=== PATIENT | male | born 1950 | race Caucasian/White ===

== ENCOUNTER 2023-03-24 05:26 | Inpatient (IN) | payer MEDICARE, SELFPAY ==
[2023-03-24] VITALS (9 sets, daily range): BP systolic 101–158; BP diastolic 43–86; PULSE 60–87; RESP 15–22; TEMP 36.9–38.2; O2SAT 91–98; BMI 29.0; BMI 28.8
--- NOTE | ~2023-03-24 | MR_ITS ---
MRI of the abdomen: Clinical indication: Choledocholithiasis. Technique: Coronal SSFSE ARC, WATER:coronal LAVA-FLEX, Coronal 2D FIESTA FatSat, Axial SSFSE BH ARC, Axial 3D DualEcho BH, Axial SSFSE-IR, Axial DWI b=500, Axial 2D FIESTA FatSat, pre and dynamic postco ntrast Axial LAVA ARC, postcontrast Coronal In and Opposed phase LAVA FLEX. Following intravenous adm inistration of 70 cc MultiHance gadolinium, T1-weighted fat-sat imaging was performed in the axial an d coronal planes. Findings: Gallbladder is markedly distended, sludge and probable small stones. There is gallbladder w all thickening, and probable mild pericholecystic inflammatory change. The common bile duct is mildly dilated to 9 mm. There are several filling defects at the distal common bile duct, compatible with c holedocholithiasis, with largest stone measuring 8 mm.. No evidence of intrahepatic biliary ductal di latation. The pancreatic duct is normal in size. Liver, spleen, pancreas, adrenals, kidneys appear normal. The aorta and the paraaortic regions appear normal. Impression: Choledocholithiasis, as detailed above. Distended gallbladder with wall thickening and mild pericholecystic inflammatory change, consistent w ith acute cholecystitis. Correlate clinically. Gallbladder sludge and probable small stones. Reviewed, dictated and finalized at [facility]. SPECIALIST Impression: Choledocholithiasis, as detailed above. Distended gallbladder with wall thickening and mild pericholecystic inflammator y change, consistent with acute cholecystitis. Correlate clinically. Gallbladder sludge and probable small stones.
--- NOTE | ~2023-03-24 | XR_ITS ---
EXAMINATION: XR ERCP DATE: 03/26/2023 14:25 INDICATION: Choledocholithiasis. TECHNIQUE: 2 spot fluoroscopic images of the right upper quadrant were obtained during endoscopic ret rograde cholangiopancreatography (ERCP). Fluoroscopy exposure time was 92 seconds. COMPARISON: MRCP 03/25/2023 FINDINGS: The endoscope is in the second portion of the duodenum. There is a stone in the common duct . IMPRESSION: 1. Choledocholithiasis. Please refer to the ERCP procedure note for additional details. Reviewed, dictated and finalized at location A. ERY CUTTER
--- NOTE | ~2023-03-24 | CT_ITS ---
EXAMINATION: CT abdomen pelvis w con INDICATION: Abdominal pain TECHNIQUE: Computed tomographic images of the abdomen and pelvis were obtained after the administrati on of 100 cc of Omnipaque 350 intravenous contrast. The dose-length product (DLP) was 783.24 mGy-cm. Automated exposure control and iterative reconstruction technique were employed. COMPARISON: None available FINDINGS: Minimal dependent atelectasis is present in the lung bases. The heart size is normal. Calci fied coronary artery atherosclerosis is noted. The liver, pancreas, and adrenal glands are normal. Pu nctate calcifications in an otherwise normal spleen likely represent healed granulomatous disease. Th ere are stones in the common bile duct which results in mild intrahepatic and extra hepatic biliary d ilatation. There is also resulting distention of the gallbladder with surrounding edematous fat stran ding. The kidneys are unremarkable. There is calcified atherosclerosis of the aorta and many of the o ther arteries. No pathologically enlarged abdominal or pelvic lymph nodes are identified. No free int raperitoneal gas or evidence of bowel obstruction. Colonic diverticulosis is present without evidence of diverticulitis. The appendix is normal. There is moderate lumbar spondylosis. IMPRESSION: 1. Choledocholithiasis with mild intrahepatic and extra hepatic biliary dilatation and secondary chol ecystitis. GI evaluation is recommended. Reviewed, dictated and finalized at location F. CULAR BIOLOGY DIRECTOR IMPRESSION: 1. Choledocholithiasis with mild intrahepatic and extra hepatic biliary dilatat ion and secondary cholecystitis. GI evaluation is recommended.
--- NOTE | 2023-03-24 07:18 | ED.ABDPAIN ---
HPI - Abdominal Pain General Chief Complaint: Abdominal Pain Stated Complaint: abd pain Time Seen by Provider: 03/24/23 07:17 Source: patient and EMS Mode of arrival: EMS History of Present Illness HPI narrative: 73 years old white male came from home by ambulance with severe intermittent diffuse abdominal pain, aching, associated with nausea and frequent vomiting for the last 3 days. Patient lives alone, denies history of abdominal surgery. He denies any fever chills, chest pain or shortness of breath, history of hypertension, hyperlipidemia currently on aspirin and Plavix, he does smoke cigarettes and occasional alcohol intake. Related Data Home Medications Medication Instructions Recorded Confirmed aspirin 81 mg capsule 81 mg PO DAILY 03/24/23 03/24/23 carvedilol 12.5 mg tablet 12.5 mg PO BID 03/24/23 03/24/23 clopidogrel 75 mg tablet (Plavix) 75 mg PO DAILY 03/24/23 03/24/23 ezetimibe 10 mg tablet 10 mg PO DAILY 03/24/23 03/24/23 pantoprazole 40 mg tablet,delayed 40 mg PO QAM 03/24/23 03/24/23 release ramipril 10 mg capsule 10 mg PO DAILY 03/24/23 03/24/23 simvastatin 80 mg tablet 80 mg PO DAILY 03/24/23 03/24/23 Allergies Allergy/AdvReac Type Severity Reaction Status Date / Time No Known Drug Allergies Allergy Verified 03/24/23 11:30 NKA Allergy Unknown Uncoded 08/05/02 14:02 Review of Systems Review of Systems: All systems reviewed & are unremarkable except as noted in HPI and below PMFSH Past Medical History Medical History (Updated 03/24/23 @ 13:53 by Katey Mathews PA-C) Coronary artery disease Diverticulosis Gastroesophageal reflux disease Hyperlipidemia Hypertension Surgical History Surgical History (Updated 03/24/23 @ 13:54 by Katey Mathews PA-C) History of cardiac catheterization History of coronary artery stent placement (06/2006) Family History Family History (Updated 03/24/23 @ 13:55 by Katey Mathews PA-C) Father Complication of surgery Mother Hypertension Social History Social History (Updated 03/24/23 @ 13:55 by Katey Mathews PA-C) Social History: Surrogate medical decision maker: Ozzie Miller, son. Code status: Full code. Smoking packs per day: 1 Smoking cigarettes per day: 20.0 Smoking status: Current every day smoker Tobacco type: cigarettes Alcohol intake: current Drinks per week: 2 Substance use: never Do You Feel Safe in your Home?: Yes Lack of Transportation: No Lack of Food: Never True Current Housing: I Have Housing Concerned About Future Housing: No Difficulty Paying Gas/Electric Bills: No Difficulty Paying for Meds: No Currently Unemployed: No Education: Bachelor's Degree Difficulty w/ Childcare or Family Care: No Spiritual care concerns: No Exam Narrative: General appearance: Well-developed, well-nourished Skin: Normal color Head: Normocephalic, nontraumatic Eyes: Clear conjunctiva ENT: Oropharynx normal, ears normal, nose normal Neck: Supple, nontender Chest and respiratory: Airway patent, no respiratory distress, no accessory muscle use Heart: Regular rate/rhythm Abdomen: Soft, severe diffuse tenderness, positive guarding, no rebound no organomegaly, quiet bowel sounds Vascular: Normal peripheral pulses, normal capillary refill. Musculoskeletal: Normal range of motion, nontender back Neurologic: Alert and oriented ?3, UTILIZATION ENGINEER is normal as tested, no gross motor deficit Course Consultations Consultation #1: DR CRUZ Date: 03/24/23 Consultation #2: DR SOARES Vital Signs Vital signs: Vital Signs Temperature 37.0 C 03/24/23 05:30 Pulse Rate 60 03/24/23 05:30 Re
--- NOTE | 2023-03-24 07:25 | PC.NURSE ---
Report to LAYLA Roche.
[2023-03-24] MEDS: HYDROmorphone HCL INJ (*CRX) 1 MG/ML SYR 0.5 MG IV PUSH ×6 (07:41→21:02)
[2023-03-24] MEDS: SODIUM CHLORIDE 0.9% IV 1,000 ML 999 ML IV CONT (07:43)
[2023-03-24] MEDS: ONDANSETRON INJ 4 MG/2 ML VIAL IV PUSH (07:43)
[2023-03-24 08:01] LABS: Basophils Percent Auto 0.1 % (0.2-1.2); Hematocrit 41.4 % (42.0-52.0); Hemoglobin 14.4 g/dL (14.0-18.0); Immature Granulocyte Absolute 0.17 K/mm3 (0.00-0.031); Immature Granulocyte Percent A 0.8 % (0-0.5); Lymphocytes Absolute Auto 0.87 K/mm3 (0.9-3.2); Mean Corpuscular HGB Conc 34.8 g/dl (32-36); Mean Platelet Volume 9.8 fl (7.4-10.4); Monocytes Absolute Auto 2.7 K/mm3 (0.1-0.6); Monocytes Percent Auto 12.1 % (2.6-8.5); Neutrophils Absolute Auto 18.1 K/mm3 (1.3-6.7); Platelet Count Result 206 k/mm3 (150-375); Red Cell Distribution Width 12.9 % (11.5-14.5); White Blood Count 21.9 K/mm3 (4.5-10.0)
[2023-03-24 08:11] LABS: Alanine Aminotransferase 20 U/L (6-50); Albumin Level 3.5 g/dL (3.5-5.1); Alkaline Phosphatase 67 U/L (38-126); Anion Gap 6 mmol/L (8-16); Aspartate Amino Transferase 30 U/L (17-59); Bilirubin,Total 2.1 mg/dL (0.2-1.3); Blood Urea Nitrogen 20 mg/dL (9-20); Calcium 8.9 mg/dL (8.4-10.2); Carbon Dioxide 23 mmol/L (22-30); Chloride 101 mmol/L (98-107); Estimated CRCL calculation 93 ml/min; Estimated Glomerular Filt Rate > 60; Glucose 130 mg/dL (65-110); Lipase 16 U/L (23-300); Potassium 3.8 mmol/L (3.4-5.0); Sodium 130 mmol/L (137-145)
[2023-03-24 08:49] LABS: Add Urine Microscopic? YES; Appearance Urine Clear (Clear); Bacteria Urine None Seen /hpf; Bilirubin Urine 1+ (Negative); Blood Urine Negative (Negative); Color Urine Dark Yellow (Yellow); Glucose Urine UA Negative (Negative); Ketones Urine 1+ mg/dL (Negative); Leukocyte Esterase Ur Trace LEU/UL (Negative); Need Manual Microscopic Reviewed; Nitrate Urine Negative (Negative); Non Pathogenic Casts 0-2; Protein Urine 1+ mg/dL (Negative); Specific Grav Ur 1.026 (1.001-1.035); Squamous Epithelial Cell Urine None seen /hpf (Few); WBC Urine 0-5 /hpf
--- NOTE | 2023-03-24 08:59 | PC.NURSE ---
Pt to CT scan via stretcher at this time.
[2023-03-24] MEDS: PIPERACILLN/TAZ 3.375GM/NS50ML 3.375 GM/50 ML BAG IVPB ×2 (10:21→16:52)
[2023-03-24] MEDS: SODIUM CHLORIDE 0.9% IV 1,000 ML 150 ML IV CONT (11:08)
--- NOTE | 2023-03-24 11:29 | WPDGICN ---
Assessment and Plan Assessment and plan (1) Choledocholithiasis: Code(s): K80.50 - Calculus of bile duct without cholangitis or cholecystitis without obstruction Status: Acute Assessment and Plan: CT scan reveals: IMPRESSION: 1. Choledocholithiasis with mild intrahepatic and extra hepatic biliary dilatation and secondary cholecystitis. GI evaluation is recommended. (2) Acute cholecystitis: Code(s): K81.0 - Acute cholecystitis Status: Acute Assessment and Plan: surgery has been contacted. (3) Dehydration: Code(s): E86.0 - Dehydration Status: Acute Assessment and Plan: complains of being very thirsty in his mouth is dry, however BUN is only 20. Plan I told that we will follow his liver enzymes. We will likely obtain MRCP. I told that he may need ERCP which will be done on Sunday. GI Consult Note Consult date/time: 03/24/23 11:29 HPI: Te Miller is a 73 year old male who presented to the emergency room this morning with complaints of having upper abdominal pain and nausea for the past 3 days. This began with nausea and vomiting on . The pain was rather intense in the epigastric area and has not subsided. He stop eating more last but continues to feel nauseated. He also did have diaphoresis and chills initially. He has had no change in bowel habits. His urine has looked darker. He has not noticed any discoloration in his eyes. he is known to have gallstones per previous imaging studies. Now on CT scan he has coli no cholelithiasis with mild intra and extrahepatic dilatation. Surprisingly, his liver function studies are normal as is his lipase. However his white blood count is over 21,000. Review of Systems Review of Systems: All systems reviewed & are unremarkable except as noted in HPI and below Meds Home Medications and Allergies Allergies Allergy/AdvReac Type Severity Reaction Status Date / Time No Known Drug Allergies Allergy Verified 03/24/23 11:30 NKA Allergy Unknown Uncoded 08/05/02 14:02 Vital Signs Vital Signs - 24 hr 03/24/23 05:30 03/24/23 07:06 03/24/23 07:01 Temperature 37.0 C Pulse Rate 60 68 71 Respiratory Rate 22 H 20 Blood Pressure 101/43 L 146/86 H Pulse Oximetry 98 96 Oxygen Delivery Room Air 03/24/23 09:50 03/24/23 11:04 Temperature Pulse Rate 76 71 Respiratory Rate 20 15 Blood Pressure 158/77 H 140/80 Pulse Oximetry 94 94 Oxygen Delivery Exam Const: General: cooperative and healthy appearing Orientation/consciousness: patient oriented x3 HENMT: Head: normal to inspection Ears: hearing grossly normal bilaterally Mouth: Yes Normal oral and palatal mucosa present Other: as a faint hint of jaundice need his eyes. Eyes: General: appearance normal, both eyes and all related structures Neck: Neck: normal visual inspection Chest: Chest palpation & inspection: normal inspection of the chest Resp: Effort & Inspection: normal respiratory effort Auscultation: clear to auscultation bilaterally Cardio: Rate: regular rate Rhythm: regular rhythm GI: Inspection: normal to inspection GI Palp: Yes Tenderness to palpation present (GI) ( Very tender epigastric area and upper quadrants) and Yes Guarding due to palpation present (GI) Auscultation: normal bowel sounds Skin: General skin exam: normal color and no jaundice Neuro: General: patient oriented x3 Speech: normal speech Results Labs 03/24/23 07:53 03/24/23 07:53 Labs: Short CBC 03/24/23 Range/Units 07:53 WBC 21.9 H (4.5-10.0) K/mm3 Hgb 14.4 (14.0-18.0) g/dL Hct 41.4 L (42.0-52.0) % Plt Count 206 (150-375) k/mm3 BMP 03/24/23 07:53 Sodium 130 L Potassium 3.8 Chloride 101 Carbon Dioxide 23 BUN 20 Creatinine 0.60 L Glucose 130 H Calcium 8.9 Liver Function 03/24/23 Range/Units 07:53 Total Bilirubin 2.1 H (0.2-1.3) mg/dL AST 30
--- NOTE | 2023-03-24 11:57 | P.CONGI_ITS ---
Assessment and Plan Assessment and plan (1) Choledocholithiasis: Code(s): K80.50 - Calculus of bile duct without cholangitis or cholecystitis without obstruction Status: Acute (2) Transaminitis: Code(s): R74.01 - Elevation of levels of liver transaminase levels Status: Acute Assessment and Plan: AST and ALT are 288651 respectively. Alkaline phosphatase is up to 438 and as mentioned above bilirubin is also elevated. (3) Pancreatitis: Code(s): K85.90 - Acute pancreatitis without necrosis or infection, unspecified Status: Acute Assessment and Plan: lipase 04/03/2076 (4) RSV (acute bronchiolitis due to respiratory syncytial virus): Code(s): J21.0 - Acute bronchiolitis due to respiratory syncytial virus Status: Acute GI Consult Note Consult date/time: 03/24/23 11:57 HPI: Te Miller is a 73 year old male Meds Home Medications and Allergies Allergies Allergy/AdvReac Type Severity Reaction Status Date / Time No Known Drug Allergies Allergy Verified 03/24/23 11:30 NKA Allergy Unknown Uncoded 08/05/02 14:02 Vital Signs Vital Signs - 24 hr 03/24/23 05:30 03/24/23 07:06 03/24/23 07:01 Temperature 37.0 C Pulse Rate 60 68 71 Respiratory Rate 22 H 20 Blood Pressure 101/43 L 146/86 H Pulse Oximetry 98 96 Oxygen Delivery Room Air 03/24/23 09:50 03/24/23 11:04 Temperature Pulse Rate 76 71 Respiratory Rate 20 15 Blood Pressure 158/77 H 140/80 Pulse Oximetry 94 94 Oxygen Delivery Results Labs 03/24/23 07:53 03/24/23 07:53 Labs: Short CBC 03/24/23 Range/Units 07:53 WBC 21.9 H (4.5-10.0) K/mm3 Hgb 14.4 (14.0-18.0) g/dL Hct 41.4 L (42.0-52.0) % Plt Count 206 (150-375) k/mm3 BMP 03/24/23 07:53 Sodium 130 L Potassium 3.8 Chloride 101 Carbon Dioxide 23 BUN 20 Creatinine 0.60 L Glucose 130 H Calcium 8.9 Liver Function 03/24/23 Range/Units 07:53 Total Bilirubin 2.1 H (0.2-1.3) mg/dL AST 30 (17-59) U/L ALT 20 (6-50) U/L Alkaline Phosphatase 67 (38-126) U/L Albumin 3.5 (3.5-5.1) g/dL Urine 03/24/23 Range/Units 08:27 Urine Color Dark yellow (Yellow) Urine Appearance Clear (Clear) Urine pH 6.0 (5.0-9.0) Ur Specific [place] 1.026 (1.001-1.035) Urine Protein 1+ H (Negative) mg/dL Urine Glucose (UA) Negative (Negative) mg/dL
--- NOTE | 2023-03-24 13:30 | PM.IMHP ---
H&P: HPI History of Present Illness Date/Time: 03/24/23 13:30 Chief Complaint: Abdominal pain. Narrative: This is a pleasant 73-year-old male smoker with history of gastroesophageal reflux disease, diverticulosis, coronary artery disease, hypertension, dyslipidemia, and gastroesophageal reflux disease who presented to the emergency department via EMS from for evaluation of abdominal pain. The patient provides the following history. Early on in the week he developed congestion in his chest and sinuses and he reports having a dry, hacking cough. About 3 days ago he developed some discomfort throughout the upper abdomen which he initially attributed to the cough however it has become increasingly uncomfortable. The pain is intermittent and he describes it as aching in nature. It seems to radiate across his entire upper abdomen and is worse with food; he reports that he feels full quickly with minimal oral intake. Associated symptoms include nausea and several episodes of nonbloody and nonbilious emesis. He reports sweats and chills but was unaware of any fever he may have had. He denies headache, neck ache, sore throat, chest pain, pleuritic pain, palpitations, shortness of breath, hematemesis, melena, hematochezia, diarrhea, and dysuria. In the ED: He was afebrile on arrival with stable blood pressures but is now running a low-grade temperature of 100.8?. Labs were significant for a WBC count of 21.9, sodium 130, creatinine 0.60, total bilirubin 2.1, AST 30, ALT 20, alkaline phosphatase 67, lipase 16. Abdominal CT showed choledocholithiasis is mild intrahepatic and extrahepatic biliary dilatation secondary cholecystitis. He was given 2 L normal saline fluid bolus and 3.375 g of Zosyn and he is being admitted in this setting for IV antibiotics and GI and surgery consultations. Review of Systems Review of Systems: Twelve systems were reviewed and are negative except for as per HPI. [facility] Past Medical History Medical History Coronary artery disease Diverticulosis Gastroesophageal reflux disease Hyperlipidemia Hypertension Surgical History Surgical History History of cardiac catheterization History of coronary artery stent placement (06/2006) Family History Family History Father Complication of surgery Mother Hypertension Social History Social History Social History: Surrogate medical decision maker: Ozzie Miller, son. Code status: Full code. Smoking packs per day: 1 Smoking cigarettes per day: 20.0 Smoking status: Current every day smoker Tobacco type: cigarettes Alcohol intake: current Drinks per week: 2 Substance use: never Do You Feel Safe in your Home?: Yes Lack of Transportation: No Lack of Food: Never True Current Housing: I Have Housing Concerned About Future Housing: No Difficulty Paying Gas/Electric Bills: No Difficulty Paying for Meds: No Currently Unemployed: No Education: Bachelor's Degree Difficulty w/ Childcare or Family Care: No Spiritual care concerns: No Meds Home Medications and Allergies Home Medications Medication Instructions Recorded Confirmed Type aspirin 81 mg capsule 81 mg PO DAILY 03/24/23 03/24/23 History carvedilol 12.5 mg tablet 12.5 mg PO BID 03/24/23 03/24/23 History clopidogrel 75 mg tablet (Plavix) 75 mg PO DAILY 03/24/23 03/24/23 History ezetimibe 10 mg tablet 10 mg PO DAILY 03/24/23 03/24/23 History pantoprazole 40 mg tablet,delayed 40 mg PO QAM 03/24/23 03/24/23 History release ramipril 10 mg capsule 10 mg PO DAILY 03/24/23 03/24/23 History simvastatin 80 mg tablet 80 mg PO DAILY 03/24/23 03/24/23 History Allergies Allergy/AdvReac Type Severity Reaction Status Date / Time No K
[2023-03-24] MEDS: carvediloL 12.5 MG TABLET PO (16:51)
[2023-03-24] MEDS: SODIUM CHLORIDE 0.9% IV 1,000 ML 100 ML IV CONT (21:01)
[2023-03-24] MEDS: guaiFENesin/DEXTROMETHORPHAN 10 ML UDC PO (22:52)
[2023-03-24] MEDS: OXYMETAZOLINE HCL 0.05% NAS 15 ML BTL (*BKC) 1 SPRAY NASAL (22:58)
[2023-03-25] MEDS: PIPERACILLN/TAZ 3.375GM/NS50ML 3.375 GM/50 ML BAG IVPB ×4 (00:25→17:22)
[2023-03-25] MEDS: HYDROmorphone HCL INJ (*CRX) 1 MG/ML SYR 0.5 MG IV PUSH ×6 (00:28→20:53)
[2023-03-25 05:28] LABS: Influenza A QL RT-PCR Negative (Negative); Influenza B QL RT-PCR Negative (Negative); RSV RNA, RT-PCR Negative (Negative); SARS-CoV-2 RNA PCR Negative (Negative)
[2023-03-25 06:00] VITALS: BP 111/57; PULSE 71; RESP 16; TEMP 37.3; O2SAT 92
[2023-03-25 07:20] LABS: Hematocrit 38.7 % (42.0-52.0); Hemoglobin 12.9 g/dL (14.0-18.0); Mean Corpuscular HGB Conc 33.3 g/dl (32-36); Mean Corpuscular Hemoglobin 31.2 pg (26-34); Mean Corpuscular Volume 93.5 fl (80-100); Mean Platelet Volume 10.9 fl (7.4-10.4); Platelet Count Result 178 k/mm3 (150-375); Red Blood Count 4.14 M/mm3 (4.6-6.20); Red Cell Distribution Width 13.1 % (11.5-14.5); White Blood Count 20.6 K/mm3 (4.5-10.0)
[2023-03-25 07:30] LABS: Alanine Aminotransferase 20 U/L (6-50); Alkaline Phosphatase 80 U/L (38-126); Anion Gap 4 mmol/L (8-16); Aspartate Amino Transferase 23 U/L (17-59); Bilirubin,Total 2.2 mg/dL (0.2-1.3); Blood Urea Nitrogen 15 mg/dL (9-20); Calcium 8.6 mg/dL (8.4-10.2); Carbon Dioxide 25 mmol/L (22-30); Chloride 101 mmol/L (98-107); Estimated CRCL calculation 81 ml/min; Estimated Glomerular Filt Rate > 60; Glucose 97 mg/dL (65-110); Lipase 15 U/L (23-300); Magnesium 1.9 mg/dL (1.6-2.3); Potassium 3.8 mmol/L (3.4-5.0); Sodium 130 mmol/L (137-145)
[2023-03-25] MEDS: SODIUM CHLORIDE 0.9% IV 1,000 ML 100 ML IV CONT (08:40)
[2023-03-25 08:43] VITALS: PULSE 83
[2023-03-25] MEDS: carvediloL 12.5 MG TABLET PO ×2 (08:43→17:23)
[2023-03-25] MEDS: CLOPIDOGREL BISULFATE 75 MG TABLET PO (08:43)
[2023-03-25] MEDS: SIMVASTATIN 20 MG TABLET 80 MG PO (08:47)
[2023-03-25] MEDS: EZETIMIBE 10 MG TABLET PO (08:47)
[2023-03-25] MEDS: PANTOPRAZOLE 40 MG TABLET PO (08:47)
[2023-03-25] MEDS: ramipriL 5 MG CAPSULE 10 MG PO (08:51)
--- NOTE | 2023-03-25 11:45 | WPDGIPROGNO ---
Progress Note: A&P Assessment and Plan (1) Choledocholithiasis: Code(s): K80.50 - Calculus of bile duct without cholangitis or cholecystitis without obstruction Status: Acute Assessment and Plan: bilirubin has come down to 2.0. We will get MRCP today (2) Transaminitis: Code(s): R74.01 - Elevation of levels of liver transaminase levels Status: Acute Assessment and Plan: Transaminases remain normal (3) Pancreatitis: Code(s): K85.90 - Acute pancreatitis without necrosis or infection, unspecified Status: Acute Assessment and Plan: clinically he seems to have pancreatitis with epigastric tenderness and some guarding although lipase remains normal. (4) Inguinal hernia: Code(s): K40.90 - Unilateral inguinal hernia, without obstruction or gangrene, not specified as recurrent Status: Acute Assessment and Plan: Surgical consult has been placed because of gallstones. He will also check on left inguinal area tenderness (5) Leukocytosis: Code(s): D72.829 - Elevated white blood cell count, unspecified Status: Acute Assessment and Plan: white blood count remains elevated. He is on piperacillin. Subjective Date/time seen: 03/25/23 11:45 he states that the pain has not subsided. He is press tender smoke signal throughout his upper abdomen. Not interested in food. He has had no vomiting. His pain is continuous but he states that the staff is doing a good job giving him medication when he asks for it. Exam Const: General: cooperative and healthy appearing Orientation/consciousness: patient oriented x3 HENMT: Head: normal to inspection Ears: hearing grossly normal bilaterally Mouth: Yes Normal oral and palatal mucosa present Other: as a faint hint of jaundice need his eyes. Eyes: General: appearance normal, both eyes and all related structures Neck: Neck: normal visual inspection Chest: Chest palpation & inspection: normal inspection of the chest Resp: Effort & Inspection: normal respiratory effort Auscultation: clear to auscultation bilaterally Cardio: Rate: regular rate Rhythm: regular rhythm GI: Inspection: normal to inspection GI Palp: Yes abdominal tenderness ( More so than yesterday), Yes Guarding due to palpation present (GI) ( epigastric and upper abdomen) and Yes Hernia present ( left inguinal swelling probable hernia) Auscultation: normal bowel sounds Skin: General skin exam: normal color and no jaundice Neuro: General: patient oriented x3 Speech: normal speech Objective Data Vital Signs Vital Signs: Vital Signs - 24 hr 03/24/23 12:09 03/24/23 12:25 03/24/23 14:00 Temperature 37.2 C 38.2 C H Pulse Rate 87 84 Respiratory Rate 22 H 16 Blood Pressure 129/56 L 123/62 Pulse Oximetry 93 91 Oxygen Delivery Room Air 03/24/23 16:51 03/24/23 21:34 03/25/23 06:00 Temperature 36.9 C 37.3 C Pulse Rate 77 74 71 Respiratory Rate 20 16 Blood Pressure 117/64 111/57 L Pulse Oximetry 93 92 Oxygen Delivery 03/25/23 08:43 03/25/23 08:40 Temperature Pulse Rate 83 Respiratory Rate Blood Pressure Pulse Oximetry Oxygen Delivery Room Air Intake/Output Intake/Output: Intake & Output 03/22/23 03/23/23 03/24/23 03/25/23 23:59 23:59 23:59 23:59 Intake Total 2100 1468 Output Total 550 850 Balance 1550 618 Meds/Results Medications: Active Medications Generic Name Dose Route Start Last Admin Trade Name Freq PRN Reason Stop Dose Admin Aspirin 81 mg 03/25/23 09:00 03/25/23 08:53 Aspirin 81 Mg Chewable Tablet PO Not Given DAILY [facility] Carvedilol 12.5 mg 03/24/23 17:00 03/25/23 08:43 Carvedilol 12.5 Mg Tablet PO 12.5 mg BID [facility] Administration Clopidogrel Bisulfate 75 mg 03/25/23 09:00 03/25/23 08:43 Clopidogrel Bisulfate 75 Mg Tablet PO 75 mg DAILY [facility] Administration Ezetimibe 10 mg 03/25/23 09:00 03/25/23 08:47 Ezetimib
--- NOTE | 2023-03-25 12:13 | PM.CNGS ---
Assessment and Plan Assessment and plan (1) Acute cholecystitis: Code(s): K81.0 - Acute cholecystitis Status: Acute Assessment and Plan: Patient has evidence of acute cholecystitis and probable choledocholithiasis on CT. I reviewed the CT and discussed the findings with the patient. MRCP has been ordered and will await these results and further GI recommendations. Patient is on aspirin and Plavix and this was continued by the hospitalist on admission. He will not be a candidate for surgery during this admission due to this and his increased risks of major bleeding. Once common bile duct has been further assessed and decision made on ERCP, I would likely recommend a percutaneous cholecystostomy tube placement by Interventional Radiology. This will gain control of the cholecystitis and then patient can have surgery once the cholecystitis has resolved and he can safely stop his aspirin and Plavix for 5-7 days preop. (2) Choledocholithiasis: Code(s): K80.50 - Calculus of bile duct without cholangitis or cholecystitis without obstruction Status: Acute (3) Pancreatitis: Code(s): K85.90 - Acute pancreatitis without necrosis or infection, unspecified Status: Acute (4) Coronary artery disease: Code(s): I25.10 - Atherosclerotic heart disease of [place] coronary artery without angina pectoris Status: Acute (5) Inguinal hernia: Code(s): K40.90 - Unilateral inguinal hernia, without obstruction or gangrene, not specified as recurrent Status: Acute Assessment and Plan: Small reducible left inguinal hernia is identified. Patient nontender now. This can be observed for now. 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 This will have to be stopped for 5-7 days before any surgical procedure unless it is absolutely emergent. (7) Tobacco use: Code(s): Z72.0 - Tobacco use Status: Acute History of Present Illness Consult details Consult date: 03/25/23 Reason for consult: other (Cholecystitis, choledocholithiasis) Requesting physician: Chanelle Rosales MD Narrative: This is a 73-year-old man who presented to the emergency department with right upper quadrant pain, nausea, and vomiting. He was found to have a significantly elevated white blood count and elevated bilirubin. CT showed evidence of acute cholecystitis and choledocholithiasis. His pain started 3 days ago and he does recall eating a turkey burger and fries prior to this. He has never had symptoms like this before. Pain has been constant since it presented. Patient does have a history of coronary artery disease and has been on aspirin and Plavix assisted. This has not been held since he was admitted. He did receive the medications this morning. Review of Systems Review of Systems: All systems reviewed & are unremarkable except as noted in HPI and below Eyes: Eyes: Denies change in vision ENT: Denies hearing loss, Denies neck pain and Denies sore throat Cardiovascular: Cardiovascular: Denies chest pain and Denies dyspnea Respiratory: Respiratory: Denies cough, Denies dyspnea and Denies wheezing Gastrointestinal: Gastrointestinal: Reports as per HPI Genitourinary: Genitourinary: Denies hematuria and Denies dysuria Musculoskeletal: Musculoskeletal: Denies arthralgias, Denies joint swelling and Denies neck pain Allergic/Immunologic: Allergic/Immunologic: Denies wheezing [facility] Past Medical History Medical History Coronary artery disease Diverticulosis Gastroesophageal reflux disease Hyperlipidemia Hypertension Surgical History Surgical History History of cardiac catheterization History
--- NOTE | 2023-03-25 14:06 | P.PNIM_ITS ---
Progress Note: A&P Assessment and Plan (1) Cholecystitis: Code(s): K81.9 - Cholecystitis, unspecified Status: Acute Assessment and Plan: * Presented with upper abd pain- continues * CT Abd/Pelvis- choledocholithiasis and secondary cholecystitis * on Zosyn * GI consulted- Dr Mukherjee- MRCP today * General surgery consulted- No surgery this admit- recommend percutaneous cholecystostomy tube placement by Interventional Radiology (2) Choledocholithiasis: Code(s): K80.50 - Calculus of bile duct without cholangitis or cholecystitis without obstruction Status: Acute Assessment and Plan: * See #1 (3) Dehydration: Code(s): E86.0 - Dehydration Status: Acute Assessment and Plan: * ED labs indicative of dehydration- patient admitted to poor intake * 2L NS given in ED * NS at 100 currently * Labs show improvement- Continue to follow (4) Coronary artery disease: Code(s): I25.10 - Atherosclerotic heart disease of [place] coronary artery without angina pectoris Status: Acute Assessment and Plan: * Hx of CAD- with cardiac stents * Denies chest pain * Continue beta-french, statin, * Currently on Asprin and Plavix * (5) Hypertension: Code(s): I10 - Essential (primary) hypertension Status: Acute Assessment and Plan: * Ramipril and carvedilol were continued by admitting provider * monitor closely * BP today 111/57, HR 71 (6) Gastroesophageal reflux disease: Code(s): K21.9 - Gastro-esophageal reflux disease without esophagitis Status: Acute Assessment and Plan: * Was having nausea and vomiting upon admission * Continue Prontix * Monitor symptoms (7) Leukocytosis: Code(s): D72.829 - Elevated white blood cell count, unspecified Status: Acute Assessment and Plan: * WBC trending down today 20.6 (21.9 on admission) * On Zosyn * Continue to monitor trends (8) Inguinal hernia: Code(s): K40.90 - Unilateral inguinal hernia, without obstruction or gangrene, not sp ecified as recurrent Status: Acute Assessment and Plan: * Expressed tender area to left groin * Potential for hernia- as patient stated he experienced extreme coughing spells * CT Abd/Pelvis VS General surgery assessment * General surgery note patient has reducible left inguinal hernia * Monitor at this time (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 (10) Tobacco use: Code(s): Z72.0 - Tobacco use Status: Acute Assessment and Plan: * Patient is a current smoker. * Tobacco cessation education offered and declined at this time. * Continue to educate Time Spent With Patient Time with patient: 15 - 25 minutes Subjective Date/time seen: 03/25/23 0920 Interval history: 73 year old male patient examined today at bedside in interval assessment with hospital admission for cholecystitis and choledocholithiasis. He expressed that is pain remains in his upper abdomen area and describes pain as a sense of fullness. He stated that his pain increases if he has to cough. He stated cough is from congestion. He is a current smoker. He stated that current pain medication regimen works well for him, it al
--- NOTE | 2023-03-25 14:06 | PM.IMPN ---
Progress Note: A&P Assessment and Plan (1) Cholecystitis: Code(s): K81.9 - Cholecystitis, unspecified Status: Acute Assessment and Plan: Presented with upper abd pain- continues CT Abd/Pelvis- choledocholithiasis and secondary cholecystitis on Zosyn GI consulted- Dr Mukherjee- MRCP today General surgery consulted- No surgery this admit- recommend percutaneous cholecystostomy tube placement by Interventional Radiology (2) Choledocholithiasis: Code(s): K80.50 - Calculus of bile duct without cholangitis or cholecystitis without obstruction Status: Acute Assessment and Plan: See #1 (3) Dehydration: Code(s): E86.0 - Dehydration Status: Acute Assessment and Plan: ED labs indicative of dehydration- patient admitted to poor intake 2L NS given in ED NS at 100 currently Labs show improvement- Continue to follow (4) Coronary artery disease: Code(s): I25.10 - Atherosclerotic heart disease of [place] coronary artery without angina pectoris Status: Acute Assessment and Plan: Hx of CAD- with cardiac stents Denies chest pain Continue beta-french, statin, Currently on Asprin and Plavix (5) Hypertension: Code(s): I10 - Essential (primary) hypertension Status: Acute Assessment and Plan: Ramipril and carvedilol were continued by admitting provider monitor closely BP today 111/57, HR 71 (6) Gastroesophageal reflux disease: Code(s): K21.9 - Gastro-esophageal reflux disease without esophagitis Status: Acute Assessment and Plan: Was having nausea and vomiting upon admission Continue Prontix Monitor symptoms (7) Leukocytosis: Code(s): D72.829 - Elevated white blood cell count, unspecified Status: Acute Assessment and Plan: WBC trending down today 20.6 (21.9 on admission) On Zosyn Continue to monitor trends (8) Inguinal hernia: Code(s): K40.90 - Unilateral inguinal hernia, without obstruction or gangrene, not specified as recurrent Status: Acute Assessment and Plan: Expressed tender area to left groin Potential for hernia- as patient stated he experienced extreme coughing spells CT Abd/Pelvis VS General surgery assessment General surgery note patient has reducible left inguinal hernia Monitor at this time (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 (10) Tobacco use: Code(s): Z72.0 - Tobacco use Status: Acute Assessment and Plan: Patient is a current smoker. Tobacco cessation education offered and declined at this time. Continue to educate Time Spent With Patient Time with patient: 15 - 25 minutes Subjective Date/time seen: 03/25/23 09 Interval history: 73 year old male patient examined today at bedside in interval assessment with hospital admission for cholecystitis and choledocholithiasis. He expressed that is pain remains in his upper abdomen area and describes pain as a sense of fullness. He stated that his pain increases if he has to cough. He stated cough is from congestion. He is a current smoker. He stated that current pain medication regimen works well for him, it allow him to sleep, however he stated that his abdominal pain is never fully stopped. He admits to not taking deep breaths as it is painful. Lung clear to auscultation at this time. Patient also expressed that he feels a though his left groin is tender and swollen. Discussed the potential for inguinal hernia. CT Abd/Pelvis could be ordered if general surgery agrees. Today am temperature of 99.1?. Labs were significant for a WBC count of 20.6, sodium 130, creat
[2023-03-25 17:23] VITALS: PULSE 69
[2023-03-25 21:40] VITALS: BP 118/61; PULSE 74; RESP 19; TEMP 36.7; O2SAT 91
[2023-03-26] VITALS (12 sets, daily range): BP systolic 98–154; BP diastolic 51–87; PULSE 67–93; RESP 18–30; TEMP 36.5–37.3; O2SAT 91–98
[2023-03-26] MEDS: PIPERACILLN/TAZ 3.375GM/NS50ML 3.375 GM/50 ML BAG IVPB ×4 (00:15→23:04)
[2023-03-26] MEDS: SODIUM CHLORIDE 0.9% IV 1,000 ML 100 ML IV CONT ×2 (01:02→08:26)
[2023-03-26] MEDS: HYDROmorphone HCL INJ (*CRX) 1 MG/ML SYR 0.5 MG IV PUSH (05:11)
[2023-03-26 06:51] LABS: Hematocrit 36.8 % (42.0-52.0); Hemoglobin 12.4 g/dL (14.0-18.0); Mean Corpuscular HGB Conc 33.7 g/dl (32-36); Mean Corpuscular Hemoglobin 31.2 pg (26-34); Mean Corpuscular Volume 92.7 fl (80-100); Platelet Count Result 170 k/mm3 (150-375); Red Blood Count 3.97 M/mm3 (4.6-6.20); Red Cell Distribution Width 12.9 % (11.5-14.5); White Blood Count 16.2 K/mm3 (4.5-10.0)
[2023-03-26 07:01] LABS: Alanine Aminotransferase 20 U/L (6-50); Albumin Level 3.1 g/dL (3.5-5.1); Alkaline Phosphatase 114 U/L (38-126); Anion Gap 8 mmol/L (8-16); Aspartate Amino Transferase 27 U/L (17-59); Bilirubin,Total 1.8 mg/dL (0.2-1.3); Blood Urea Nitrogen 14 mg/dL (9-20); Calcium 8.3 mg/dL (8.4-10.2); Carbon Dioxide 22 mmol/L (22-30); Chloride 101 mmol/L (98-107); Estimated CRCL calculation 81 ml/min; Estimated Glomerular Filt Rate > 60; Glucose 84 mg/dL (65-110); Potassium 3.4 mmol/L (3.4-5.0); Sodium 131 mmol/L (137-145)
[2023-03-26] MEDS: HYDROmorphone HCL INJ (*CRX) 1 MG/ML SYR IV PUSH ×2 (08:21→15:39)
[2023-03-26] MEDS: PANTOPRAZOLE 40 MG TABLET PO (08:26)
[2023-03-26] MEDS: SIMVASTATIN 20 MG TABLET 80 MG PO (08:26)
[2023-03-26] MEDS: EZETIMIBE 10 MG TABLET PO (08:27)
[2023-03-26] MEDS: carvediloL 12.5 MG TABLET PO (08:27)
--- NOTE | 2023-03-26 11:22 | P.PNIM_ITS ---
Progress Note: A&P Assessment and Plan (1) Cholecystitis: Code(s): K81.9 - Cholecystitis, unspecified Status: Acute Assessment and Plan: * Presented with upper abd pain- continues * CT Abd/Pelvis- choledocholithiasis and secondary cholecystitis * on Zosyn * GI consulted- Dr Mukherjee- MRCP today * General surgery consulted- No surgery this admit- recommend percutaneous cholecystostomy tube placement by Interventional Radiology * 2 MRCP resulted. Impression consistent with choledocholithiasis and cholecystitis. * ERCP today with Dr Mukherjee. ASA and Plavix DC'd by GI. Pain control addressed and adjusted. * General surgery consulted. (2) Choledocholithiasis: Code(s): K80.50 - Calculus of bile duct without cholangitis or cholecystitis without obstruction Status: Acute Assessment and Plan: * See #1 (3) Dehydration: Code(s): E86.0 - Dehydration Status: Acute Assessment and Plan: * ED labs indicative of dehydration- patient admitted to poor intake * 2L NS given in ED * NS at 100 currently * Labs show improvement- Continue to follow * 2: Continue IV hydrationNS at 100 * Patient NPO for procedure today, but continues to express poor intake (4) Coronary artery disease: Code(s): I25.10 - Atherosclerotic heart disease of [place] coronary artery without angina pectoris Status: Acute Assessment and Plan: * Hx of CAD- with cardiac stents * Denies chest pain * Continue beta-french, statin, * Currently on Asprin and Plavix * 03/26: Denies chest pain. ASA and plavix DC'd by GI for procedure. Recommendations on restarting when needed are appreciated (5) Hypertension: Code(s): I10 - Essential (primary) hypertension Status: Acute Assessment and Plan: * Ramipril and carvedilol were continued by admitting provider * monitor closely * BP today 111/57, HR 71 * 2: BP 141/62 this am. Morning meds were held by nursing for procedure. Continue to monitor and treat as needed. (6) Gastroesophageal reflux disease: Code(s): K21.9 - Gastro-esophageal reflux disease without esophagitis Status: Acute Assessment and Plan: * Was having nausea and vomiting upon admission * Continue Prontix * Monitor symptoms * 03/26: No issues expressed at this time. Continue to monitor (7) Leukocytosis: Code(s): D72.829 - Elevated white blood cell count, unspecified Status: Acute Assessment and Plan: * WBC trending down today 20.6 (21.9 on admission) * On Zosyn * Continue to monitor trends * 03/26: WBC 16.2. Continue Zosyn. 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 * ASA and plavix DC'd by GI for procedure. Recommendations on restarting when
--- NOTE | 2023-03-26 11:22 | PM.IMPN ---
Progress Note: A&P Assessment and Plan (1) Cholecystitis: Code(s): K81.9 - Cholecystitis, unspecified Status: Acute Assessment and Plan: Presented with upper abd pain- continues CT Abd/Pelvis- choledocholithiasis and secondary cholecystitis on Zosyn GI consulted- Dr Mukherjee- MRCP today General surgery consulted- No surgery this admit- recommend percutaneous cholecystostomy tube placement by Interventional Radiology 03/26 MRCP resulted. Impression consistent with choledocholithiasis and cholecystitis. ERCP today with Dr Mukherjee. ASA and Plavix DC'd by GI. Pain control addressed and adjusted. General surgery consulted. (2) Choledocholithiasis: Code(s): K80.50 - Calculus of bile duct without cholangitis or cholecystitis without obstruction Status: Acute Assessment and Plan: See #1 (3) Dehydration: Code(s): E86.0 - Dehydration Status: Acute Assessment and Plan: ED labs indicative of dehydration- patient admitted to poor intake 2L NS given in ED NS at 100 currently Labs show improvement- Continue to follow 2: Continue IV hydrationNS at 100 Patient NPO for procedure today, but continues to express poor intake (4) Coronary artery disease: Code(s): I25.10 - Atherosclerotic heart disease of [place] coronary artery without angina pectoris Status: Acute Assessment and Plan: Hx of CAD- with cardiac stents Denies chest pain Continue beta-french, statin, Currently on Asprin and Plavix 2: Denies chest pain. ASA and plavix DC'd by GI for procedure. Recommendations on restarting when needed are appreciated (5) Hypertension: Code(s): I10 - Essential (primary) hypertension Status: Acute Assessment and Plan: Ramipril and carvedilol were continued by admitting provider monitor closely BP today 111/57, HR 71 2: BP 141/62 this am. Morning meds were held by nursing for procedure. Continue to monitor and treat as needed. (6) Gastroesophageal reflux disease: Code(s): K21.9 - Gastro-esophageal reflux disease without esophagitis Status: Acute Assessment and Plan: Was having nausea and vomiting upon admission Continue Prontix Monitor symptoms 03/26: No issues expressed at this time. Continue to monitor (7) Leukocytosis: Code(s): D72.829 - Elevated white blood cell count, unspecified Status: Acute Assessment and Plan: WBC trending down today 20.6 (21.9 on admission) On Zosyn Continue to monitor trends 03/26: WBC 16.2. Continue Zosyn. 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 ASA and plavix DC'd by GI for procedure. Recommendations on restarting when needed are appreciated. (10) Tobacco use: Code(s): Z72.0 - Tobacco use Status: Acute Assessment and Plan: Patient is a current smoker. Tobacco cessation education offered and declined at this time. Continue to educate Time Spent With Patient Time with patient: 15 - 25 minutes Subjective Date/time seen: 03/26/23 0900 Interval history: 73 year old male patient examined today at bedside in interval assessment with hospital admiss
[2023-03-26] MEDS: LACTATED RINGERS 1,000 ML 150 ML IV CONT (12:36)
[2023-03-26] MEDS: INDOMETHACIN 50 MG SUPP.RECT RECTAL (13:20)
--- NOTE | 2023-03-26 13:21 | WPDANESEPPF ---
Anes - Initial Pre Proc Eval Procedure: Operation Date: 03/26/23 13:30 Proposed Procedures p Endoscopic Retro Cholangiopancreatogram - Hugh Mukherjee MD Date/Time: 03/26/23 13:21 Surgeon: Sarah Alexis MD Pre Op Diagnosis: Cholecystitis,Choledocholithiasis Patient Data Age: 73 Gender: M Height: 1.73 m Weight: 88.7 kg Last Vital Signs Temp 97.7 F 03/26/23 12:20 Pulse 67 03/26/23 12:20 Resp 22 H 03/26/23 12:20 BP 154/73 H 03/26/23 12:20 Pulse Ox 96 03/26/23 12:20 O2 Del Method Room Air 03/26/23 12:20 Allergies Allergy/AdvReac Type Severity Reaction Status Date / Time No Known Drug Allergies Allergy Verified 03/24/23 11:30 NKA Allergy Unknown Uncoded 08/05/02 14:02 Home Medications Medication Instructions Recorded Confirmed Type aspirin 81 mg capsule 81 mg PO DAILY 03/24/23 03/24/23 History carvedilol 12.5 mg tablet 12.5 mg PO BID 03/24/23 03/24/23 History clopidogrel 75 mg tablet (Plavix) 75 mg PO DAILY 03/24/23 03/24/23 History ezetimibe 10 mg tablet 10 mg PO DAILY 03/24/23 03/24/23 History pantoprazole 40 mg tablet,delayed 40 mg PO QAM 03/24/23 03/24/23 History release ramipril 10 mg capsule 10 mg PO DAILY 03/24/23 03/24/23 History simvastatin 80 mg tablet 80 mg PO DAILY 03/24/23 03/24/23 History Laboratory Tests 03/26/23 06:13 WBC 16.2 H K/mm3 (4.5-10.0) RBC 3.97 L M/mm3 (4.6-6.20) Hgb 12.4 L g/dL (14.0-18.0) Hct 36.8 L % (42.0-52.0) MCV 92.7 fl (80-100) MCH 31.2 pg (26-34) MCHC 33.7 g/dl (32-36) RDW 12.9 % (11.5-14.5) Plt Count 170 k/mm3 (150-375) MPV 11.0 H fl (7.4-10.4) Sodium 131 L mmol/L (137-145) Potassium 3.4 mmol/L (3.4-5.0) Chloride 101 mmol/L (98-107) Carbon Dioxide 22 mmol/L (22-30) Anion Gap 8 mmol/L (8-16) BUN 14 mg/dL (9-20) Creatinine 0.70 mg/dL (0.7-1.3) Estim Creat Clear Calc 81 ml/min Estimated GFR > 60 (59 - ) Glucose 84 mg/dL (65-110) Calcium 8.3 L mg/dL (8.4-10.2) Total Bilirubin 1.8 H mg/dL (0.2-1.3) Direct Bilirubin 0.0 mg/dL (0-0.3) AST 27 U/L (17-59) ALT 20 U/L (6-50) Alkaline Phosphatase 114 U/L (38-126) Total Protein 6.0 L g/dL (6.3-8.2) Albumin 3.1 L g/dL (3.5-5.1) Patient hx anesthesia problems: none Family hx anesthesia problems: none Results Review: All pre-operative results and documents have been reviewed as part of the pre-operative evaluation. [facility] Past Medical History Medical History Coronary artery disease Diverticulosis Gastroesophageal reflux disease Hyperlipidemia Hypertension Surgical History Surgical History History of cardiac catheterization History of coronary artery stent placement (06/2006) Family History Family History Father Complication of surgery Mother Hypertension Social History Social History Social History: Surrogate medical decision maker: Ozzie Miller, son. Code status: Full code. Smoking packs per day: 1 Smoking cigarettes per day: 20.0 Smoking status: Current every day smoker Tobacco type: cigarettes Alcohol intake: current Drinks per week: 2 Substance use: never Do You Feel Safe in your Home?: Yes Lack of Transportation: No Lack of Food: Never True Current Housing: I Have Housing Concerned About Future Housing: No Difficulty Paying Gas/Electric Bills: No Difficulty Paying for Meds: No Currently Unemployed: No Education: Bachelor's Degree Difficulty w/ Childcare or Family Care: No Spiritual care concerns: No Anes - Eval Final PreProcedure Day of Procedure 03/26/23 13:21 Patient weight: normal Heart: r
--- NOTE | 2023-03-26 15:51 | PM.PNGS ---
Progress Note: A&P Assessment and Plan (1) Acute cholecystitis: Code(s): K81.0 - Acute cholecystitis Status: Acute Assessment and Plan: ERCP successful today with multiple stones removed from the common bile duct. Abdominal pain is improving. Will repeat labs tomorrow morning and reassess the patient. If he continues to improve, then we can continue antibiotics and monitoring with eventual interval cholecystectomy as an outpatient. If he continues to have abdominal pain or is not improving as expected, then we may need to consider percutaneous cholecystostomy tube placement in Radiology. Will continue to follow. (2) Choledocholithiasis: Code(s): K80.50 - Calculus of bile duct without cholangitis or cholecystitis without obstruction Status: Acute (3) Pancreatitis: Code(s): K85.90 - Acute pancreatitis without necrosis or infection, unspecified Status: Acute (4) alf (current) use of antithrombotics/antiplatelets: Code(s): Z79.02 - alf (current) use of antithrombotics/antiplatelets Status: Acute (5) Coronary artery disease: Code(s): I25.10 - Atherosclerotic heart disease of [place] coronary artery without angina pectoris Status: Acute (6) Tobacco use: Code(s): Z72.0 - Tobacco use Status: Acute Plan I have discussed the patient's case and plan of care with Dr. Paris. Subjective Subjective Date/Time Seen: 03/26/23 15:51 Interval history: Patient went for an ERCP today. Multiple common bile duct stones were successfully removed. He is now seen on the medical floor. Reports his abdominal pain has significantly improved since admission. No nausea or vomiting. He was started on clear liquid diet. No other complaints at this time. Exam Const: General: comfortable and no acute distress Orientation/consciousness: patient oriented x3 GI: Inspection: non-distended GI Palp: Yes Soft to palpation, Yes Tenderness to palpation present (GI) (Very mild right upper quadrant tenderness), No Guarding due to palpation present (GI) and No Rebound tenderness present Auscultation: normal bowel sounds Objective Data Vital Signs Vital Signs: Vital Signs - 24 hr 03/25/23 17:23 03/25/23 19:37 03/25/23 21:40 Temperature 98.0 F Pulse Rate 69 74 Respiratory Rate 19 Blood Pressure 118/61 Pulse Oximetry 91 Oxygen Delivery Room Air Oxygen Flow Rate 03/26/23 06:00 03/26/23 08:27 03/26/23 12:20 Temperature 98.5 F 97.7 F Pulse Rate 78 80 67 Respiratory Rate 20 22 H Blood Pressure 141/62 H 154/73 H Pulse Oximetry 94 96 Oxygen Delivery Room Air Oxygen Flow Rate 03/26/23 14:18 03/26/23 14:28 03/26/23 14:38 Temperature 99.1 F Pulse Rate 90 77 78 Respiratory Rate 30 H 25 H 22 H Blood Pressure 98/51 L 106/54 L 118/87 Pulse Oximetry 98 96 95 Oxygen Delivery Simple Face Mask Room Air Room Air Oxygen Flow Rate 6 03/26/23 14:48 03/26/23 14:58 03/26/23 15:08 Temperature 98.8 F Pulse Rate 70 72 71 Respiratory Rate 25 H 18 24 H Blood Pressure 113/56 L 115/58 L 112/54 L Pulse Oximetry 94 94 94 Oxygen Delivery Room Air Room Air Room Air Oxygen Flow Rate 03/26/23 15:18 Temperature 98.7 F Pulse Rate 68 Respiratory Rate 23 H Blood Pressure 117/55 L Pulse Oximetry 95 Oxygen Delivery Room Air Oxygen Flow Rate Intake/Output Intake/Output: Intake & Output 03/23/23 03/24/23 03/25/23 03/26/23 23:59 23:59 23:59 23:59 Intake Total 2100 2568 1900 Output Total 550 1050 Balance 1550 1518 1900 Meds/Results Medications: Active Medications Generic Name Dose Route Start Last Admin Trade Name Freq PRN Reason Stop Dose Admin Carvedilol 12.5 mg 03/24/23 17:00 03/26/23 08:27 Carvedilol 12.5 Mg Tablet PO 12.5 mg BID RAGHAV Administration Ezetimibe 10 mg 03/25/23 09:00 03/26/23 08:27 Ezetimibe 10 Mg Tablet PO 10 mg DAILY RAGHAV Administration Hydromorphone HCl 1 mg
[2023-03-27 06:00] VITALS: BP 119/68; PULSE 57; RESP 20; TEMP 36.3; O2SAT 97
[2023-03-27] MEDS: PIPERACILLN/TAZ 3.375GM/NS50ML 3.375 GM/50 ML BAG IVPB ×2 (06:16→13:32)
--- NOTE | 2023-03-27 07:17 | WPDGIPROGNO ---
Progress Note: A&P Assessment and Plan (1) Choledocholithiasis: Code(s): K80.50 - Calculus of bile duct without cholangitis or cholecystitis without obstruction Status: Acute Assessment and Plan: bilirubin has come down to 2.0. We will get MRCP today MRCP did reveal common bile duct stones. ERCP done 03/26/2023 with removal of 3 rather large irregularly shaped stones. (2) Transaminitis: Code(s): R74.01 - Elevation of levels of liver transaminase levels Status: Acute Assessment and Plan: Transaminases remain normal (3) Pancreatitis: Code(s): K85.90 - Acute pancreatitis without necrosis or infection, unspecified Status: Acute Assessment and Plan: clinically he seems to have pancreatitis with epigastric tenderness and some guarding although lipase remains normal. Still no bump in lipase. (4) Inguinal hernia: Code(s): K40.90 - Unilateral inguinal hernia, without obstruction or gangrene, not specified as recurrent Status: Acute Assessment and Plan: Surgical consult has been placed because of gallstones. He will also check on left inguinal area tenderness (5) Leukocytosis: Code(s): D72.829 - Elevated white blood cell count, unspecified Status: Acute Assessment and Plan: white blood count remains elevated. He is on piperacillin. Plan Diet is advanced low-fat per surgery. The plan is for him to have an elective cholecystectomy as an outpatient unless urgent cholecystostomy tube might be required. Subjective Date/time seen: 03/27/23 07:17 He states that his pain is markedly improved since ERCP and removal of 3 stones. He is however [place] tender in the right upper quadrant. He is awaiting the decision about surgery. I told that for now I will keep him on a clear liquid diet. He states that he was sweaty and feverish during the night. He remains on antibiotics although it appears that it was stopped and restarted. Exam Const: General: cooperative and healthy appearing Orientation/consciousness: patient oriented x3 HENMT: Head: normal to inspection Ears: hearing grossly normal bilaterally Mouth: Yes Normal oral and palatal mucosa present Other: as a faint hint of jaundice need his eyes. Eyes: General: appearance normal, both eyes and all related structures Neck: Neck: normal visual inspection Chest: Chest palpation & inspection: normal inspection of the chest Resp: Effort & Inspection: normal respiratory effort Auscultation: clear to auscultation bilaterally Cardio: Rate: regular rate Rhythm: regular rhythm GI: Inspection: normal to inspection GI Palp: Yes abdominal tenderness ( Much less), No Guarding due to palpation present (GI) and Yes Hernia present ( left inguinal swelling probable hernia) Auscultation: normal bowel sounds Skin: General skin exam: normal color and no jaundice Neuro: General: patient oriented x3 Speech: normal speech Objective Data Vital Signs Vital Signs: Vital Signs - 24 hr 03/26/23 08:27 03/26/23 12:20 03/26/23 14:18 Temperature 36.5 C 37.3 C Pulse Rate 80 67 90 Respiratory Rate 22 H 30 H Blood Pressure 154/73 H 98/51 L Pulse Oximetry 96 98 Oxygen Delivery Room Air Simple Face Mask Oxygen Flow Rate 6 03/26/23 14:28 03/26/23 14:38 03/26/23 14:48 Temperature 37.1 C Pulse Rate 77 78 70 Respiratory Rate 25 H 22 H 25 H Blood Pressure 106/54 L 118/87 113/56 L Pulse Oximetry 96 95 94 Oxygen Delivery Room Air Room Air Room Air Oxygen Flow Rate 03/26/23 14:58 03/26/23 15:08 03/26/23 15:18 Temperature 37.1 C Pulse Rate 72 71 68 Respiratory Rate 18 24 H 23 H Blood Pressure 115/58 L 112/54 L 117/55 L Pulse Oximetry 94 94 95 Oxygen Delivery Room Air Room Air Room Air Oxygen Flow Rate 03/26/23 21:25 03/26/23 20:00 03/26/23 20:00 Temperature 36.7 C Pulse Rate 93 93 93 Respiratory Rate 20 20 20 Blood Pressure 112/57 L
[2023-03-27 07:44] LABS: Hematocrit 34.5 % (42.0-52.0); Hemoglobin 11.7 g/dL (14.0-18.0); Mean Corpuscular HGB Conc 33.9 g/dl (32-36); Mean Corpuscular Hemoglobin 31.5 pg (26-34); Mean Platelet Volume 11.1 fl (7.4-10.4); Platelet Count Result 199 k/mm3 (150-375); Red Blood Count 3.71 M/mm3 (4.6-6.20); Red Cell Distribution Width 13.2 % (11.5-14.5); White Blood Count 10.2 K/mm3 (4.5-10.0)
[2023-03-27 07:53] LABS: Alanine Aminotransferase 58 U/L (6-50); Alkaline Phosphatase 206 U/L (38-126); Anion Gap 4 mmol/L (8-16); Aspartate Amino Transferase 75 U/L (17-59); Bilirubin Direct 0.2 mg/dL (0-0.3); Bilirubin,Total 1.9 mg/dL (0.2-1.3); Blood Urea Nitrogen 18 mg/dL (9-20); Calcium 8.5 mg/dL (8.4-10.2); Carbon Dioxide 26 mmol/L (22-30); Chloride 107 mmol/L (98-107); Estimated CRCL calculation 81 ml/min; Estimated Glomerular Filt Rate > 60; Glucose 132 mg/dL (65-110); Lipase 63 U/L (23-300); Magnesium 2.6 mg/dL (1.6-2.3); Potassium 3.6 mmol/L (3.4-5.0); Sodium 137 mmol/L (137-145)
[2023-03-27 07:58] VITALS: PULSE 49; RESP 18; O2SAT 97
[2023-03-27 08:09] VITALS: BP 131/60; PULSE 49; RESP 18; TEMP 36.3; O2SAT 97
[2023-03-27 09:29] VITALS: PULSE 48
[2023-03-27] MEDS: ramipriL 5 MG CAPSULE 10 MG PO (09:29)
[2023-03-27] MEDS: EZETIMIBE 10 MG TABLET PO (09:29)
[2023-03-27] MEDS: SIMVASTATIN 20 MG TABLET 80 MG PO (09:29)
[2023-03-27] MEDS: PANTOPRAZOLE 40 MG TABLET PO (09:30)
--- NOTE | 2023-03-27 11:04 | PM.PNGS ---
Progress Note: A&P Assessment and Plan (1) Acute cholecystitis: Code(s): K81.0 - Acute cholecystitis Status: Acute Assessment and Plan: Symptomatically improved following the ERCP. Some of the inflammation of the gallbladder could have been related to the common duct stones. He still has some tenderness in the RUQ, but his abdominal pain has resolved. Discussed options with the patient again this morning. Since he is no longer having pain, he could try advancing his diet and continue treating with antibiotics. If he is able to tolerate a diet, then he could discharge home with low fat diet restrictions and we would ideally try to schedule an interval cholecystectomy in about 6 weeks once the inflammation has improved. He could then be restarted on his Plavix/ASA and we could hold his Plavix at least 5 days prior to surgery as an outpatient. We also discussed the other option of proceeding with a cholecystectomy during this hospitalization, but knowing that this would increase his risks for surgery and he would have a higher risk of bleeding. The patient understand and would like to try advancing his diet today. Will advance to low fat diet (2) Choledocholithiasis: Code(s): K80.50 - Calculus of bile duct without cholangitis or cholecystitis without obstruction Status: Acute Assessment and Plan: S/p ERCP with removal of 3 stones in the common bile duct (3) salvage determiner (current) use of antithrombotics/antiplatelets: Code(s): Z79.02 - senior living (current) use of antithrombotics/antiplatelets Status: Acute (4) Coronary artery disease: Code(s): I25.10 - Atherosclerotic heart disease of [place] coronary artery without angina pectoris Status: Acute (5) Tobacco use: Code(s): Z72.0 - Tobacco use Status: Acute Plan I have discussed the patient's case and plan of care with Dr. Paris. Subjective Subjective Date/Time Seen: 03/27/23 11:04 Patient reports: no new complaints, feels better, pain is less, tolerating liquids well, voiding w/o difficulty, flatus, no bowel movement and afebrile Interval history: Patient seen today. Tolerating clear liquids. Denies any abdominal pain, nausea, or vomiting. He reports still some right upper quadrant tenderness, but no pain this morning. He has not required Dilaudid or any analgesics since yesterday right after the ERCP. No other complaints at this time. Review of Systems Review of Systems: All systems reviewed & are unremarkable except as noted in HPI and below Exam Const: General: comfortable; No acute distress Orientation/consciousness: patient oriented x3 GI: Inspection: non-distended GI Palp: Yes Soft to palpation, Yes Tenderness to palpation present (GI) (Right upper quadrant) and Yes Guarding due to palpation present (GI) (Some voluntary guarding with palpation in the right upper quadrant) Auscultation: normal bowel sounds Objective Data Vital Signs Vital Signs: Vital Signs - 24 hr 03/26/23 12:20 03/26/23 14:18 03/26/23 14:28 Temperature 97.7 F 99.1 F Pulse Rate 67 90 77 Respiratory Rate 22 H 30 H 25 H Blood Pressure 154/73 H 98/51 L 106/54 L Pulse Oximetry 96 98 96 Oxygen Delivery Room Air Simple Face Mask Room Air Oxygen Flow Rate 6 03/26/23 14:38 03/26/23 14:48 03/26/23 14:58 Temperature 98.8 F Pulse Rate 78 70 72 Respiratory Rate 22 H 25 H 18 Blood Pressure 118/87 113/56 L 115/58 L Pulse Oximetry 95 94 94 Oxygen Delivery Room Air Room Air Room Air Oxygen Flow Rate 03/26/23 15:08 03/26/23 15:18 03/26/23 21:25 Temperature 98.7 F 98.1 F Pulse Rate 71 68 93 Respiratory Rate 24 H 23 H 20 Blood Pressure 112/54 L 117/55 L 112/57 L Pulse Oximetry 94 95 91 Oxygen Delivery Room Air Room Air Oxygen Flow Rate 03/26/23 20:00 03/26/23 20:00 03/27/23 06:00 Temperature 97.4 F L Pulse Rate 93 93 57 L Respiratory Rate 20 20 20 Blood Pressure 119/68 Pulse Oximetry 91 91 9
--- NOTE | 2023-03-27 11:21 | WPDANESPN ---
Anes - Prog Note Post-Op Date/Time: 03/27/23 11:21 Cardiovascular status: normal Respiratory status: normal Airway patency: baseline Mental status: baseline Post-Op hydration status: normal Vital Signs: Last Vital Signs Temp 36.3 C L 03/27/23 08:09 Pulse 48 L 03/27/23 09:29 Resp 18 03/27/23 08:09 BP 131/60 03/27/23 08:09 Pulse Ox 97 03/27/23 08:09 O2 Del Method Room Air 03/27/23 07:58 O2 Flow Rate 6 03/26/23 14:18 Pain Score (VAS): 310 I/O: Intake & Output 03/26/23 03/27/23 03/27/23 23:59 07:59 15:59 Intake Total 1940 760 Balance 1940 760 Laboratory Tests 03/27/23 07:06 03/27/23 07:06 03/27/23 07:06 WBC 10.2 H RBC 3.71 L Hgb 11.7 L Hct 34.5 L MCV 93.0 MCH 31.5 MCHC 33.9 RDW 13.2 Plt Count 199 MPV 11.1 H Sodium 137 Potassium 3.6 Chloride 107 Carbon Dioxide 26 Anion Gap 4 L BUN 18 Creatinine 0.70 Estim Creat Clear Calc 81 Estimated GFR > 60 Glucose 132 H Calcium 8.5 Magnesium 2.6 H Total Bilirubin 1.9 H Direct Bilirubin 0.2 AST 75 H ALT 58 H Alkaline Phosphatase 206 H Total Protein 6.0 L Albumin 3.0 L Lipase 63 Post-procedural complaints: other (Patient states some pain and slight swelling in upper lip. Denies numbness or tingling.) Patient Feedback: Patient satisfied with anesthetic care.
--- NOTE | 2023-03-27 12:09 | P.PNIM_ITS ---
Progress Note: A&P Assessment and Plan (1) Cholecystitis: Code(s): K81.9 - Cholecystitis, unspecified Status: Acute Assessment and Plan: * Presented with upper abd pain- continues * CT Abd/Pelvis- choledocholithiasis and secondary cholecystitis * on Zosyn * GI consulted- Dr Mukherjee- MRCP today * General surgery consulted- No surgery this admit- recommend percutaneous cholecystostomy tube placement by Interventional Radiology * 03/26 MRCP resulted. Impression consistent with choledocholithiasis and cholecystitis. * ERCP today with Dr Mukherjee. ASA and Plavix DC'd by GI. Pain control addressed and adjusted. * General surgery consulted. * 03/27: ERCP resulted. Noted diverticulosis without perforation or abscess without bleeding * ASA and Plavix DC'd by GI- Surgery to discuss plan for outpatient cholecystectomy vs percutaneous cholecystostomy tube placement. Pain control addressed and adjusted. Patient discussed he has less pain at this time (2) Choledocholithiasis: Code(s): K80.50 - Calculus of bile duct without cholangitis or cholecystitis without obstruction Status: Acute Assessment and Plan: * See #1 (3) Dehydration: Code(s): E86.0 - Dehydration Status: Acute Assessment and Plan: * ED labs indicative of dehydration- patient admitted to poor intake * 2L NS given in ED * NS at 100 currently * Labs show improvement- Continue to follow * 03/26: Continue IV hydrationNS at 100 * Patient NPO for procedure today, but continues to express poor intake * 03/27: Clear liquid diet, with good intake. Tolerate well * No vomiting noted (4) Coronary artery disease: Code(s): I25.10 - Atherosclerotic heart disease of [place] coronary artery without angina pectoris Status: Acute Assessment and Plan: * Hx of CAD- with cardiac stents * Denies chest pain * Continue beta-french, statin, * Currently on Asprin and Plavix * 2: Denies chest pain. ASA and plavix DC'd by GI for procedure. Recommendations on restarting when needed are appreciated * 03/27: Denies chest pain. ASA and plavix DC'd by GI for procedure. Recommendations on restarting when needed are appreciated (5) Hypertension: Code(s): I10 - Essential (primary) hypertension Status: Acute Assessment and Plan: * Ramipril and carvedilol were continued by admitting provider * monitor closely * BP today 111/57, HR 71 * 03/26: BP 141/62 this am. Morning meds were held by nursing for procedure. Continue to monitor and treat as needed * 03/27 BP 119/68 this am. Continue to monitor (6) Gastroesophageal reflux disease: Code(s): K21.9 - Gastro-esophageal reflux disease without esophagitis Status: Acute Assessment and Plan: * Was having nausea and vomiting upon admission * Continue Prontix * Monitor symptoms * 03/26: No issues expressed at this time. Continue to monitor (7) Leukocytosis: Code(s): D72.829 - Elevated white blood cell count, unspecified Status: Acute Assessment and Plan: * WBC trending down today 20.6 (21.9 on admission) * On Zosyn * Continue to monitor trends * 03/26: WBC 16.2. Continue Zosyn. Continue to monitor * 03/27; WBC 10.0. Continue Zosyn. (8) Inguinal hernia: Code(s): K40.90 - Unilateral inguinal hernia, without obstruction or gangrene, not specified as recurrent Status: Acute Assessment and Plan: * Expressed tender area to left groin * Potential for hernia- as patient stated he experienced extreme coughing spells * CT
--- NOTE | 2023-03-27 12:09 | PM.IMPN ---
Progress Note: A&P Assessment and Plan (1) Cholecystitis: Code(s): K81.9 - Cholecystitis, unspecified Status: Acute Assessment and Plan: Presented with upper abd pain- continues CT Abd/Pelvis- choledocholithiasis and secondary cholecystitis on Zosyn GI consulted- Dr Mukherjee- MRCP today General surgery consulted- No surgery this admit- recommend percutaneous cholecystostomy tube placement by Interventional Radiology 03/26 MRCP resulted. Impression consistent with choledocholithiasis and cholecystitis. ERCP today with Dr Mukherjee. ASA and Plavix DC'd by GI. Pain control addressed and adjusted. General surgery consulted. 03/27: ERCP resulted. Noted diverticulosis without perforation or abscess without bleeding ASA and Plavix DC'd by GI- Surgery to discuss plan for outpatient cholecystectomy vs percutaneous cholecystostomy tube placement. Pain control addressed and adjusted. Patient discussed he has less pain at this time (2) Choledocholithiasis: Code(s): K80.50 - Calculus of bile duct without cholangitis or cholecystitis without obstruction Status: Acute Assessment and Plan: See #1 (3) Dehydration: Code(s): E86.0 - Dehydration Status: Acute Assessment and Plan: ED labs indicative of dehydration- patient admitted to poor intake 2L NS given in ED NS at 100 currently Labs show improvement- Continue to follow 2: Continue IV hydrationNS at 100 Patient NPO for procedure today, but continues to express poor intake 03/27: Clear liquid diet, with good intake. Tolerate well No vomiting noted (4) Coronary artery disease: Code(s): I25.10 - Atherosclerotic heart disease of [place] coronary artery without angina pectoris Status: Acute Assessment and Plan: Hx of CAD- with cardiac stents Denies chest pain Continue beta-french, statin, Currently on Asprin and Plavix 2: Denies chest pain. ASA and plavix DC'd by GI for procedure. Recommendations on restarting when needed are appreciated 03/27: Denies chest pain. ASA and plavix DC'd by GI for procedure. Recommendations on restarting when needed are appreciated (5) Hypertension: Code(s): I10 - Essential (primary) hypertension Status: Acute Assessment and Plan: Ramipril and carvedilol were continued by admitting provider monitor closely BP today 111/57, HR 71 2: BP 141/62 this am. Morning meds were held by nursing for procedure. Continue to monitor and treat as needed 03/27 BP 119/68 this am. Continue to monitor (6) Gastroesophageal reflux disease: Code(s): K21.9 - Gastro-esophageal reflux disease without esophagitis Status: Acute Assessment and Plan: Was having nausea and vomiting upon admission Continue Prontix Monitor symptoms 03/26: No issues expressed at this time. Continue to monitor (7) Leukocytosis: Code(s): D72.829 - Elevated white blood cell count, unspecified Status: Acute Assessment and Plan: WBC trending down today 20.6 (21.9 on admission) On Zosyn Continue to monitor trends 03/26: WBC 16.2. Continue Zosyn. Continue to monitor 03/27; WBC 10.0. Continue Zosyn. (8) Inguinal hernia: Code(s): K40.90 - Unilateral inguinal hernia, without obstruction or gangrene, not specified as recurrent Status: Acute Assessment and Plan: Expressed tender area to left groin Potential for hernia- as patient stated he experienced extreme coughing spells CT Abd/Pelvis VS General surgery assessment General surgery note patient has reducible left inguinal hernia Monitor at this time (9) intermediate (current) use of antithrombotics/antiplatelets: Code(s): Z79.02 - intermediate (current) use of antithrombotics/antiplatelets Status: Acute Assessment and Plan: CAD with stents Currently in dual antiplatelet therapy ASA and plavix Will need discontinued for 5-7 days per general surger
--- NOTE | 2023-03-27 12:58 | PC.NURSE ---
On 03/27/23, the student, Dilan Figueroa, provided care and completed [facility] documentation on this patient. I have reviewed the student's documentation and agree with the findings.
[2023-03-27 13:39] VITALS: BP 120/61; PULSE 69; RESP 18; TEMP 35.9; O2SAT 97
[2023-03-27 14:00] VITALS: BP 120/51; PULSE 62; RESP 18; TEMP 36.6; O2SAT 97
--- NOTE | 2023-03-27 16:12 | P.DS_ITS ---
DS: Admitting Diagnosis Discharge Date 03/27/23 Admitting Diagnosis Cholecystitis, Choledocholithiasis DS: Discharge Diagnosis Discharge Diagnosis (1) Cholecystitis: Code(s): K81.9 - Cholecystitis, unspecified Status: Acute Assessment and Plan: * Presented with upper abd pain- continues * CT Abd/Pelvis- choledocholithiasis and secondary cholecystitis * on Zosyn * GI consulted- Dr Mukherjee- MRCP today * General surgery consulted- No surgery this admit- recommend percutaneous cholecystostomy tube placement by Interventional Radiology * 03/26 MRCP resulted. Impression consistent with choledocholithiasis and cholecystitis. * ERCP today with Dr Mukherjee. ASA and Plavix DC'd by GI. Pain control addressed and adjusted. * General surgery consulted. * 03/27: ERCP resulted. Noted diverticulosis without perforation or abscess without bleeding * ASA and Plavix DC'd by GI- Surgery to discuss plan for outpatient cholecystectomy vs percutaneous cholecystostomy tube placement. Pain control addressed and adjusted. Patient discussed he has less pain at this time * 03/27: Surgery ok for patient to discharge at this time. Tolerating diet well. Continue PO abx of Flagyl and Levaquin. Can restart ASA and Plavix. F/U with surgery to schedule appointment for surgery and for further surgical instructions. (2) Choledocholithiasis: Code(s): K80.50 - Calculus of bile duct without cholangitis or cholecystitis without obstruction Status: Acute Assessment and Plan: * See #1 (3) Dehydration: Code(s): E86.0 - Dehydration Status: Acute Assessment and Plan: * ED labs indicative of dehydration- patient admitted to poor intake * 2L NS given in ED * NS at 100 currently * Labs show improvement- Continue to follow * 03/26: Continue IV hydrationNS at 100 * Patient NPO for procedure today, but continues to express poor intake * 03/27: Clear liquid diet, with good intake. Tolerate well * No vomiting noted * 03/27: tolerated low fiber diet with no issues. OK to discharge on low fiber diet. Instructions given per surgery (4) Coronary artery disease: Code(s): I25.10 - Atherosclerotic heart disease of [place] coronary artery without angina pectoris Status: Acute Assessment and Plan: * Hx of CAD- with cardiac stents * Denies chest pain * Continue beta-french, statin, * Currently on Asprin and Plavix * 2/12: Denies chest pain. ASA and plavix DC'd by GI for procedure. Recommendations on restarting when needed are appreciated * 03/27: Denies chest pain. ASA and plavix DC'd by GI for procedure. Recommendations on restarting when needed are appreciated * 03/27: Ok to discharge at this time per surgery. Can restart ASA and Plavix. F/U with surgery to schedule and for further medication instructions. (5) Hypertension: Code(s): I10 - Essential (primary) hypertension Status: Acute Assessment and Plan: * Ramipril and carvedilol were continued by admitting provider * monitor closely * BP today 111/57, HR 71 * 03/26: BP 141/62 this am. Morning meds were held by nursing for procedure. Continue to monitor and treat as needed * 03/27 BP 119/68 this am. Continue to monitor . * 03/27: ok to discharge today per surgery. Continue home medications (6) Gastroesophageal reflux disease: Code(s): K21.9 - Gastro-esophageal reflux disease without esophagitis Status: Acute Assessment and Plan: * Was having nausea and vomiting upon admission * Continue Prontix * Monitor symptoms * 03/26: No issues
--- NOTE | 2023-03-27 16:12 | PM.DS ---
DS: Admitting Diagnosis Discharge Date 03/27/23 Admitting Diagnosis Cholecystitis, Choledocholithiasis DS: Discharge Diagnosis Discharge Diagnosis (1) Cholecystitis: Code(s): K81.9 - Cholecystitis, unspecified Status: Acute Assessment and Plan: Presented with upper abd pain- continues CT Abd/Pelvis- choledocholithiasis and secondary cholecystitis on Zosyn GI consulted- Dr Mukherjee- MRCP today General surgery consulted- No surgery this admit- recommend percutaneous cholecystostomy tube placement by Interventional Radiology 03/26 MRCP resulted. Impression consistent with choledocholithiasis and cholecystitis. ERCP today with Dr Mukherjee. ASA and Plavix DC'd by GI. Pain control addressed and adjusted. General surgery consulted. 03/27: ERCP resulted. Noted diverticulosis without perforation or abscess without bleeding ASA and Plavix DC'd by GI- Surgery to discuss plan for outpatient cholecystectomy vs percutaneous cholecystostomy tube placement. Pain control addressed and adjusted. Patient discussed he has less pain at this time 03/27: Surgery ok for patient to discharge at this time. Tolerating diet well. Continue PO abx of Flagyl and Levaquin. Can restart ASA and Plavix. F/U with surgery to schedule appointment for surgery and for further surgical instructions. (2) Choledocholithiasis: Code(s): K80.50 - Calculus of bile duct without cholangitis or cholecystitis without obstruction Status: Acute Assessment and Plan: See #1 (3) Dehydration: Code(s): E86.0 - Dehydration Status: Acute Assessment and Plan: ED labs indicative of dehydration- patient admitted to poor intake 2L NS given in ED NS at 100 currently Labs show improvement- Continue to follow 03/26: Continue IV hydrationNS at 100 Patient NPO for procedure today, but continues to express poor intake 03/27: Clear liquid diet, with good intake. Tolerate well No vomiting noted 03/27: tolerated low fiber diet with no issues. OK to discharge on low fiber diet. Instructions given per surgery (4) Coronary artery disease: Code(s): I25.10 - Atherosclerotic heart disease of [place] coronary artery without angina pectoris Status: Acute Assessment and Plan: Hx of CAD- with cardiac stents Denies chest pain Continue beta-french, statin, Currently on Asprin and Plavix 03/26: Denies chest pain. ASA and plavix DC'd by GI for procedure. Recommendations on restarting when needed are appreciated 03/27: Denies chest pain. ASA and plavix DC'd by GI for procedure. Recommendations on restarting when needed are appreciated 03/27: Ok to discharge at this time per surgery. Can restart ASA and Plavix. F/U with surgery to schedule and for further medication instructions. (5) Hypertension: Code(s): I10 - Essential (primary) hypertension Status: Acute Assessment and Plan: Ramipril and carvedilol were continued by admitting provider monitor closely BP today 111/57, HR 71 03/26: BP 141/62 this am. Morning meds were held by nursing for procedure. Continue to monitor and treat as needed 03/27 BP 119/68 this am. Continue to monitor . 03/27: ok to discharge today per surgery. Continue home medications (6) Gastroesophageal reflux disease: Code(s): K21.9 - Gastro-esophageal reflux disease without esophagitis Status: Acute Assessment and Plan: Was having nausea and vomiting upon admission Continue Prontix Monitor symptoms 03/26: No issues expressed at this time. Continue to monitor (7) Leukocytosis: Code(s): D72.829 - Elevated white blood cell count, unspecified Status: Acute Assessment and Plan: WBC trending down today 20.6 (21.9 on admission) On Zosyn Continue to monitor trends 03/26: WBC 16.2. Continue Zosyn. Continue to monitor 03/27; WBC 10.0. Continue Zosyn. 03/27: Ok to discharge home today per surgery. Will continue PO Abx flagyle
[2023-03-27] MEDS: levoFLOXacin 750 MG TABLET PO (18:06)
== END 2023-03-27 18:35 | disposition home or self-care (01) | DRG 444 ==
LOC: ANHED 08:23 → ANH3MEDSUR 11:27
PROVIDERS: Emergency Medicine; Internal Medicine Gastroenterology; Nurse Practitioner Family; Physician Assistant; Admitting Provider General Practice; Emergency Provider Emergency Medicine; PCP Internal Medicine; Visit Provider General Practice
PROC: 0FC98ZZ Extirpation of Matter from Common Bile Duct, Via Natural or Artificial Opening Endoscopic (ICD-10-PCS; CPT 43260; principal; 2023-03-26 13:30)
DX: K80.40 Calculus of bile duct with cholecystitis, unspecified, without obstruction (principal); K85.90 Acute pancreatitis without necrosis or infection, unspecified; E86.0 Dehydration; E78.5 Hyperlipidemia, unspecified; F17.210 Nicotine dependence, cigarettes, uncomplicated; I25.10 Atherosclerotic heart disease of native coronary artery without angina pectoris; I10 Essential (primary) hypertension; K21.9 Gastro-esophageal reflux disease without esophagitis; K57.90 Diverticulosis of intestine, part unspecified, without perforation or abscess without bleeding; K40.90 Unilateral inguinal hernia, without obstruction or gangrene, not specified as recurrent; Z95.5 Presence of coronary angioplasty implant and graft; Z79.82 Long term (current) use of aspirin; Z79.02 Long term (current) use of antithrombotics/antiplatelets; Z28.21 Immunization not carried out because of patient refusal; Z20.822 Contact with and (suspected) exposure to COVID-19
CPT/HCPCS: 36415; 74177; 74183; 74329; 76376; 80053; 81001; 82248; 83690; 83735; 85025; 85027; 87637; 96361; 96374; 96375; 96376; 99285; A9270; A9577; J0330; J1100; J1170; J2001; J2371; J2405; J2543; J2704; J7030; J7120; Q9966; Q9967

== ENCOUNTER 2023-04-18 11:03 | Outpatient (CLI) | payer MEDICARE, SELFPAY ==
--- NOTE | 2023-04-18 11:10 | ECG_ITS ---
Measurements Intervals [place] Rate: 72 P: 27 CA: 140 QRS: 4 QRSD: 84 T: 29 QT: 340 QTc: 372 Interpretive Statements SINUS RHYTHM BASELINE ARTIFACT- I, II, III, AVR, AVL, AVF NORMAL ECG NO PREVIOUS ECG AVAILABLE FOR COMPARISON Electronically Signed On 04-18-2023 11:27:56 CHART WRITER by Josh Miranda D.O.
[2023-04-18 11:40] LABS: Amylase 78 U/L (30-110)
== END 2023-04-18 11:04 | disposition home or self-care (01) ==
LOC: ANHSURGERY 11:07
PROVIDERS: PCP Internal Medicine; Visit Provider Surgery
DX: Z01.818 Encounter for other preprocedural examination (principal); I10 Essential (primary) hypertension; K81.9 Cholecystitis, unspecified
CPT/HCPCS: 36415; 82150; 93005

== ENCOUNTER 2023-04-23 01:22 | Day surgery (SDC) | payer MEDICARE, SELFPAY ==
--- NOTE | 2023-04-18 09:19 | PC.NURSE ---
Report to the Outpatient Waiting Room, entrance under the green pavilion located off [facility], at time _1100 on date __04/23/23 . Planned Procedure Time: _1:00 PM . Time changes happen often and if your time is changed the preop area will call you the afternoon before. - You and your visitor will be asked to self-screen and do not enter if you have any COVID symptoms. - A mask is optional within the hospital at this time. Patients may have clear liquids (water, carbonated beverages, clear teas, apple juice) until 3 hours prior to surgery( 10 AM) with a maximum of 20 ounces. - No food from midnight until time of surgery - Infants may have breast milk until 4 hours before surgery, infant formula 6 hours prior to surgery. - Children will be allowed to drink immediately following surgery. If applicable, please bring a bottle or sippy cup to assist with drinking. Juice, water, soda, and popsicles are readily available. For infants on formula, please bring formula the day of surgery. Pacifiers are allowed. Take the following medications with a SIP of water the morning of surgery: ___CARVEDILOL DO NOT STOP ANY OF YOUR OTHER PRESCRIPTION MEDICATIONS PRIOR TO SURGERY ?EXCEPT THE FOLLOWING Medications to discontinue per physician _PT STATES HOLD PLAVIX 7 DAYS PRE OP PER DR CRUZ.LAST DOSE 04/15/23. MAY CONTINUE ASPIRIN [address] CRUZ BUT DO NOT TAKE MORNING OF SURGERY Please no make-up, nail filipino, hairspray, perfume, deodorant, or body powder the day of surgery. No jewelry (including any body piercings) or valuables the day of surgery, leave them at home. Please take a shower or bath the night before, or the morning of, surgery with an antibacterial soap. Wear comfortable, loose fitting clothing. Children are encouraged to wear pajamas. - Jewelry must be removed prior to entering the operating room. Rings and piercings that are not removed may be cut off. - The hospital will not accept responsibility for valuables. - Please leave all valuables, including medications, at home the day of surgery. If you are going home after surgery, a licensed lumber driver must drive you home. - NO public transportation without another adult if you receive anesthesia. - We recommend that an adult stay with you for 24 hours following discharge. - We also recommend that you do not drive, make important decision, drink alcoholic beverages, or take any drugs that were not prescribed by your health care provider for at least 24 hours after your discharge time. Follow any additional instructions given to you from your surgeon. If you or anyone in your household have experienced Covid symptoms in the past week, please notify your surgeon or the nurse liaison at the phone number below for possible testing. Telephone instructions given to __PATIENT and asked if any additional questions and then verbalized understanding. Patient advised to call surgeon office or pre surgery nurse liaison [phone] if any additional questions.
[2023-04-18 09:29] VITALS: BMI 28.1
[2023-04-23] VITALS (11 sets, daily range): BP systolic 137–158; BP diastolic 59–78; PULSE 66–77; RESP 12–26; TEMP 36.3; O2SAT 95–100
--- NOTE | ~2023-04-23 | XR_ITS ---
EXAMINATION: XR cholangiogram surg 1st inj DATE: 04/23/2023 13:52 INDICATION: Intraoperative evaluation during laparoscopic cholecystectomy TECHNIQUE: Multiple fluoroscopic images of the right upper quadrant were obtained during intraoperati ve cholangiography. A total of 98 fluoroscopic images were obtained. The amount of fluoroscopy time used during this procedure was 0.3 minutes. COMPARISON: None. FINDINGS: Cannulation of the cystic duct demonstrates filling of a normal appearing common bile duct which tapers smoothly distally with no intraluminal filling defects or stricture. Contrast extends i nto the duodenum and central intrahepatic biliary tree. Contrast also fills a duodenal diverticulum w hich originates near the ampulla. IMPRESSION: 1. No filling defects or strictures within the common bile duct or contrast opacified central biliary tree. Reviewed, dictated and finalized at location B. IMPRESSION: 1. No filling defects or strictures within the common bile duct or contrast opa cified central biliary tree.
--- NOTE | 2023-04-23 08:28 | WPDANESEPPF ---
Anes - Initial Pre Proc Eval Procedure: Operation Date: 04/23/23 13:00 Proposed Procedures p Laparoscopic Cholecystectomy, Possible Intraoperative Cholangiogram, Possible Open - Robin Paris DO Date/Time: 04/23/23 08:28 Surgeon: Robin Paris DO Pre Op Diagnosis: acute cholecystitis Patient Data Age: 73 Gender: M Height: 1.73 m Weight: 83.95 kg Allergies Allergy/AdvReac Type Severity Reaction Status Date / Time No Known Allergies Allergy Verified 05/04/23 08:25 Home Medications Medication Instructions Recorded Confirmed Type aspirin 81 mg capsule 81 mg PO DAILY 03/24/23 05/07/23 History carvedilol 12.5 mg tablet 12.5 mg PO BID 03/24/23 05/07/23 History clopidogrel 75 mg tablet (Plavix) 75 mg PO DAILY 03/24/23 05/07/23 History ezetimibe 10 mg tablet 10 mg PO DAILY 03/24/23 05/07/23 History pantoprazole 40 mg tablet,delayed 40 mg PO QAM 03/24/23 05/07/23 History release ramipril 10 mg capsule 10 mg PO DAILY 03/24/23 05/07/23 History simvastatin 80 mg tablet 80 mg PO DAILY 03/24/23 05/07/23 History metronidazole 500 mg tablet 500 mg PO Q8H #21 tabs 04/23/23 05/07/23 Rx Patient hx anesthesia problems: none Family hx anesthesia problems: none Results Review: All pre-operative results and documents have been reviewed as part of the pre-operative evaluation. [facility] Past Medical History Medical History Coronary artery disease Diverticulosis Gastroesophageal reflux disease History of heart attack Hyperlipidemia Hypertension Surgical History Surgical History History of cardiac catheterization History of coronary artery stent placement (06/2006) x3, 2007 Hx laparoscopic cholecystectomy Lap franc with IOC 04/23/23 Dr. Robin Paris Family History Family History Father Complication of surgery Mother Hypertension Social History Social History Social History: Surrogate medical decision maker: Ozzie Miller, son. Code status: Full code. Smoking packs per day: 1 Smoking cigarettes per day: 20.0 Years smoked: 50 Smoking pack-years: 50.00 Smoking status: Current every day smoker Tobacco type: cigarettes Additional smoking assessment comments: PAST 2 YRS SMOKES DECREASED TO 0.5 PPD Alcohol intake: current Drinks per week: 2 Substance use: never Do You Feel Safe in your Home?: Yes Lack of Transportation: No Lack of Food: Never True Current Housing: I Have Housing Concerned About Future Housing: No Difficulty Paying Gas/Electric Bills: No Difficulty Paying for Meds: No Currently Unemployed: No Education: Bachelor's Degree Difficulty w/ Childcare or Family Care: No Living arrangements: alone Spiritual care concerns: No Anes - Eval Final PreProcedure Day of Procedure 04/23/23 08:28 Patient weight: overweight Heart: regular rate and rhythm Lungs: clear to auscultation Airway: Mallampati scale class II Neurological: alert and oriented Last oral intake: >/= 8 hours ASA classification: III Emergent: no Anesthetic plan: proceed Anesthesia type and monitoring: general ETT and standard monitoring Results Review: All pre-operative results and documents have been reviewed as part of the pre-operative evaluation. Informed Consent: The patient's anesthetic plan and its attendant risks and benefits were discussed with the patient/family/POA. Questions were solicited and answers provided to the satisfaction of the patient/family/POA.
[2023-04-23] MEDS: ACETAMINOPHEN 500 MG TABLET 1000 MG PO (11:32)
[2023-04-23] MEDS: LACTATED RINGERS 1,000 ML 30 ML IV CONT ×2 (11:40→14:17)
[2023-04-23] MEDS: KETOROLAC 15 MG/ML VIAL (*BKC) IV PUSH (11:45)
--- NOTE | 2023-04-23 12:31 | WPDHPUPDATE1 ---
History and Physical Update Update Date/Time: 04/23/23 12:31 History and Physical has been reviewed, including an updated exam of the patient. There are NO changes in the patient's condition. Risks, benefits, and alternatives have been discussed and questions answered. Patient agrees to proceed with procedure.
[2023-04-23] MEDS: ceFAZolin 2 GM/D5W 50 ML 2 GM/50 ML BAG IVPB (12:58)
[2023-04-23] MEDS: metroNIDAZOLE 500 MG/ISO 100ML 500 MG/100 ML BAG 100 MG IVPB (13:34)
[2023-04-23] MEDS: BUPIVACAINE/EPINEPHRINE 0.5% 30 ML VIAL INFILTRATE (13:58)
--- NOTE | 2023-04-23 14:08 | W.PM.PROC2 ---
Procedure Note - Detailed Date of Procedure 04/23/23 Pre-op Diagnosis acute cholecystitis Post-op Diagnosis Same Procedure Performed Laparoscopic cholecystectomy with cholangiogram Surgeon Robin Paris, DO Anesthesia General and Local (0.5% bupivacaine) Indications This is a 73-year-old man who presented with a recent episode of acute calculous cholecystitis and choledocholithiasis. He was hospitalized in early March and underwent ERCP for the choledocholithiasis. He was on aspirin and Plavix and therefore surgery was delayed until he recovered from this acute episode and could stop his Plavix for 5-7 days preop. Discussions were made with the patient about treatment options and decision was made to proceed with laparoscopic cholecystectomy with cholangiogram, possible open. Findings Laparoscopic cholecystectomy with cholangiogram was performed. The gallbladder had evidence of acute and chronic cholecystitis with multiple pericholecystic adhesions and a thickened gallbladder wall. There was also some necrotic surface to the gallbladder wall especially along the gallbladder fossa and there did appear to be purulence fluid within the gallbladder. The fluid was drained and the area was irrigated with sterile saline. The cystic duct appeared normal in size. The intraoperative cholangiogram was obtained and there did not appear to be any evidence of filling defects or obstruction within the common bile duct. The gallbladder was then removed and sent to the lab for pathology. Description of Procedure Procedure as well as risks, benefits, and alternatives were discussed with patient. Written consent was obtained and placed in chart prior to procedure. The patient was brought back to surgical suite. Patient was placed in supine position on operating table. Time-out was done to confirm patient and procedure. Patient was then intubated by the anesthesia department. Abdomen was prepped and draped in sterile fashion using chlorhexidine prep. 0.5% bupivacaine with epinephrine was infiltrated at each site of incision. A 5 millimeter incision was made near the umbilicus, and a 5 millimeter Optiview trocar was advanced through the abdominal layers under direct visualization. Once inside the abdominal cavity, carbon dioxide was insufflated to create a pneumoperitoneum. The camera was inserted and the abdomen was inspected. No immediate abnormalities were identified. The patient was placed in reverse Trendelenburg position and rotated slightly to the left. An 11 millimeter incision was made in the subxiphoid region, and an 11 millimeter trocar was inserted under direct visualization. Two 5 millimeter incisions were made in the right upper quadrant, and two 5 millimeter trocars were inserted under direct visualization. The gallbladder was identified and grasped at the fundus and retracted superiorly. It was then grasped at the infundibulum retracted laterally. Careful dissection around the neck of the gallbladder was performed using blunt dissection with a [place] grasper and hook electrocautery. The cystic duct was identified, and a window was created behind it. The cystic artery was also identified and a window was created behind it. The critical view of safety was identified, visualizing the cystic duct running directly into the neck of the gallbladder, and the cystic artery running directly into the wall of the gallbladder. A 5 millimeter clip bisque kiln placer was then used to place 2 clips proximally and 1 clip distally on the cystic artery. It was then transected using endoscopic scissors. The Raines clamp was placed across the neck of the gallbladder and the Raines cholangiocatheter was advanced into the cystic duct. The catheter flushed with saline with ease. The patient was then flattened out in bed and fluoroscopy was used to obtain an intraoperative cholangiogram using Omnipaque contrast. The images were sent to the radiologist for interpretation.
[2023-04-23] MEDS: fentaNYL CITRATE INJ (*CRX) 100 MCG/2 ML VIAL 25 MCG IV PUSH ×9 (14:35→16:08)
[2023-04-23] MEDS: HYDROmorphone HCL INJ (*CRX) 1 MG/ML SYR 0.5 MG IV PUSH ×3 (15:05→16:52)
[2023-04-23] MEDS: oxyCODONE HCL (*CRX) 5 MG TAB IR PO (15:51)
== END 2023-04-23 17:21 | disposition home or self-care (01) ==
PROVIDERS: PCP Internal Medicine; Visit Provider Surgery
PROC: 0FT44ZZ Resection of Gallbladder, Percutaneous Endoscopic Approach (ICD-10-PCS; CPT 47562; principal; 2023-04-23 13:00)
DX: K80.00 Calculus of gallbladder with acute cholecystitis without obstruction (principal); I25.10 Atherosclerotic heart disease of native coronary artery without angina pectoris; I10 Essential (primary) hypertension; E78.5 Hyperlipidemia, unspecified; K21.9 Gastro-esophageal reflux disease without esophagitis; Z95.5 Presence of coronary angioplasty implant and graft; F17.210 Nicotine dependence, cigarettes, uncomplicated; Z79.82 Long term (current) use of aspirin; Z79.02 Long term (current) use of antithrombotics/antiplatelets
CPT/HCPCS: 47563; 74300; 88304; A9270; J0690; J1100; J1170; J1836; J1885; J2405; J2704; J3010; J7030; J7120; Q9966

== ENCOUNTER 2023-12-07 01:23 | Day surgery (SDC) | payer MEDICARE, SELFPAY ==
[2023-12-03 13:19] VITALS: BMI 28.1
--- NOTE | 2023-12-03 13:50 | PC.NURSE ---
Spoke with PATIENT regarding medication PLAVIX. Pt. verbalizes understanding that the last dose of PLAVIX is to be taken on 12/02/2023 and the Endoscopist will instruct them when to restart after the procedure.
[2023-12-07 11:12] VITALS: BP 94/74; PULSE 85; RESP 16; TEMP 36.6; O2SAT 99
--- NOTE | 2023-12-07 11:20 | PM.HPGS ---
History of Present Illness History of Present Illness Consent: Risks, benefits, and alternatives have been discussed and questions answered. Patient agrees to proceed with procedure. Chief complaint: fecal abnormalities Narrative: Te Miller is a 73 year old male here for colonoscopy, last one about 10 years ago, had + cologuard Review of Systems Review of Systems: All systems reviewed & are unremarkable except as noted in HPI and below PMFSH Past Medical History Medical History (Updated 12/07/23 @ 11:21 by Ryder Sykes MD) Coronary artery disease Diverticulosis Gastroesophageal reflux disease History of heart attack Hyperlipidemia Hypertension Positive colorectal cancer screening using Cologuard test Surgical History Surgical History History of cardiac catheterization History of coronary artery stent placement (06/2006) x3, 2007 Hx laparoscopic cholecystectomy Lap franc with IOC 04/23/23 Dr. Robin Paris Family History Family History Father Complication of surgery Mother Hypertension Social History Social History Social History: Surrogate medical decision maker: Ozzie Miller, son. Code status: Full code. Smoking packs per day: 0.5 Smoking cigarettes per day: 10.0 Years smoked: 50 Smoking pack-years: 25.00 Smoking status: Current every day smoker Tobacco type: cigarettes Additional smoking assessment comments: PAST 2 YRS SMOKES DECREASED TO 0.5 PPD Alcohol intake: current Drinks per week: 2 Substance use: never Substance use type: does not use Do You Feel Safe in your Home?: Yes Lack of Transportation: No Lack of Food: Never True Current Housing: I Have Housing Concerned About Future Housing: No Difficulty Paying Gas/Electric Bills: No Difficulty Paying for Meds: No Currently Unemployed: No Education: Bachelor's Degree Difficulty w/ Childcare or Family Care: No Living arrangements: with family Spiritual care concerns: No Meds Home Medications and Allergies Home Medications Medication Instructions Recorded Confirmed Type aspirin 81 mg capsule 81 mg PO DAILY 03/24/23 12/07/23 History carvedilol 12.5 mg tablet 12.5 mg PO BID 03/24/23 12/07/23 History clopidogrel 75 mg tablet (Plavix) 75 mg PO DAILY 03/24/23 12/07/23 History ezetimibe 10 mg tablet 10 mg PO DAILY 03/24/23 12/07/23 History pantoprazole 40 mg tablet,delayed 40 mg PO QAM 03/24/23 12/07/23 History release ramipril 10 mg capsule 10 mg PO DAILY 03/24/23 12/07/23 History simvastatin 80 mg tablet 40 mg PO DAILY 03/24/23 12/07/23 History tamsulosin 0.4 mg capsule 0.4 mg PO DAILY 12/03/23 12/07/23 History Allergies Allergy/AdvReac Type Severity Reaction Status Date / Time No Known Allergies Allergy Verified 12/07/23 11:09 Vital Signs Vital Signs - 24 hr 12/07/23 11:12 Temperature 97.8 F Pulse Rate 85 Respiratory Rate 16 Blood Pressure 94/74 L Pulse Oximetry 99 Oxygen Delivery Room Air Exam Const: General: comfortable and no acute distress HENMT: Face/Nose/Sinus: Normal nares present Eyes: General: appearance normal, both eyes and all related structures Neck: Neck: no JVD Resp: Auscultation: clear to auscultation bilaterally Cardio: Rate: regular rate Rhythm: regular rhythm GI: Inspection: non-distended GI Palp: Yes Soft to palpation Skin: General skin exam: normal color Neuro: General: gait normal Speech: normal speech Extrem: General: normal to inspection Psych: Mental Status: mental status grossly normal Assessment and Plan Assessment and plan (1) Positive colorectal cancer screening using Cologuard test: Code(s): R19.5 - Other fecal abnormalities Status: Acute Assessment and Plan: colonoscopy
[2023-12-07] MEDS: LACTATED RINGERS 1,000 ML 150 ML IV CONT (11:22)
--- NOTE | 2023-12-07 11:44 | WPDANESEPPF ---
Anes - Initial Pre Proc Eval Procedure: Operation Date: 12/07/23 12:30 Proposed Procedures p Colonoscopy - Ryder Sykes MD Date/Time: 12/07/23 11:44 Surgeon: Ryder Sykes MD Pre Op Diagnosis: fecal abnormalities Patient Data Age: 73 Gender: M Height: 1.73 m Weight: 84.8 kg Last Vital Signs Temp 97.8 F 12/07/23 11:12 Pulse 85 12/07/23 11:12 Resp 16 12/07/23 11:12 BP 94/74 L 12/07/23 11:12 Pulse Ox 99 12/07/23 11:12 O2 Del Method Room Air 12/07/23 11:12 Allergies Allergy/AdvReac Type Severity Reaction Status Date / Time No Known Allergies Allergy Verified 12/07/23 11:09 Home Medications Medication Instructions Recorded Confirmed Type aspirin 81 mg capsule 81 mg PO DAILY 03/24/23 12/07/23 History carvedilol 12.5 mg tablet 12.5 mg PO BID 03/24/23 12/07/23 History clopidogrel 75 mg tablet (Plavix) 75 mg PO DAILY 03/24/23 12/07/23 History ezetimibe 10 mg tablet 10 mg PO DAILY 03/24/23 12/07/23 History pantoprazole 40 mg tablet,delayed 40 mg PO QAM 03/24/23 12/07/23 History release ramipril 10 mg capsule 10 mg PO DAILY 03/24/23 12/07/23 History simvastatin 80 mg tablet 40 mg PO DAILY 03/24/23 12/07/23 History tamsulosin 0.4 mg capsule 0.4 mg PO DAILY 12/03/23 12/07/23 History Patient hx anesthesia problems: none Family hx anesthesia problems: none Results Review: All pre-operative results and documents have been reviewed as part of the pre-operative evaluation. [facility] Past Medical History Medical History Coronary artery disease Diverticulosis Gastroesophageal reflux disease History of heart attack Hyperlipidemia Hypertension Positive colorectal cancer screening using Cologuard test Surgical History Surgical History History of cardiac catheterization History of coronary artery stent placement (06/2006) x3, 2007 Hx laparoscopic cholecystectomy Lap franc with IOC 04/23/23 Dr. Robin Paris Family History Family History Father Complication of surgery Mother Hypertension Social History Social History Social History: Surrogate medical decision maker: Ozzie Miller, son. Code status: Full code. Smoking packs per day: 0.5 Smoking cigarettes per day: 10.0 Years smoked: 50 Smoking pack-years: 25.00 Smoking status: Current every day smoker Tobacco type: cigarettes Additional smoking assessment comments: PAST 2 YRS SMOKES DECREASED TO 0.5 PPD Alcohol intake: current Drinks per week: 2 Substance use: never Substance use type: does not use Do You Feel Safe in your Home?: Yes Lack of Transportation: No Lack of Food: Never True Current Housing: I Have Housing Concerned About Future Housing: No Difficulty Paying Gas/Electric Bills: No Difficulty Paying for Meds: No Currently Unemployed: No Education: Bachelor's Degree Difficulty w/ Childcare or Family Care: No Living arrangements: with family Spiritual care concerns: No Anes - Eval Final PreProcedure Day of Procedure 12/07/23 11:44 Patient weight: overweight Heart: regular rate and rhythm Lungs: clear to auscultation Airway: Mallampati scale class II Neurological: alert and oriented Last oral intake: >/= 8 hours ASA classification: III Emergent: no Anesthetic plan: proceed Anesthesia type and monitoring: general GIVS and standard monitoring Results Review: All pre-operative results and documents have been reviewed as part of the pre-operative evaluation. HTN, hyperlipidemia, s/p PTCA 2006 and doing well since. Can walk 1-2 fos, no cp or sob. Continues to smoke 1ppd for many years, smoked at 7 am today. Informed Consent: The patient's anesthetic plan and its attendant risks and benefits were discussed with the patient/family/POA. Questions were solicited and answers provided to the satisfaction of the patient/family/POA.
[2023-12-07 12:25] VITALS: BP 113/69; PULSE 68; RESP 20; O2SAT 94
[2023-12-07 12:35] VITALS: BP 117/70; PULSE 76; RESP 20; O2SAT 96
[2023-12-07 12:45] VITALS: BP 132/82; PULSE 74; RESP 20; O2SAT 99
== END 2023-12-07 13:03 | disposition home or self-care (01) ==
PROVIDERS: PCP Internal Medicine; Referring Provider Internal Medicine; Visit Provider Internal Medicine Gastroenterology
PROC: 0DJD8ZZ Inspection of Lower Intestinal Tract, Via Natural or Artificial Opening Endoscopic (ICD-10-PCS; CPT 45378; principal; 2023-12-07 12:30)
DX: K64.8 Other hemorrhoids (principal); K57.30 Diverticulosis of large intestine without perforation or abscess without bleeding; E78.5 Hyperlipidemia, unspecified; I10 Essential (primary) hypertension; I25.10 Atherosclerotic heart disease of native coronary artery without angina pectoris; K21.9 Gastro-esophageal reflux disease without esophagitis; F17.210 Nicotine dependence, cigarettes, uncomplicated; Z79.82 Long term (current) use of aspirin; Z79.02 Long term (current) use of antithrombotics/antiplatelets; Z98.890 Other specified postprocedural states; Z90.49 Acquired absence of other specified parts of digestive tract; Z95.5 Presence of coronary angioplasty implant and graft; Z87.19 Personal history of other diseases of the digestive system; Z86.79 Personal history of other diseases of the circulatory system
CPT/HCPCS: 45378; J2704; J7120

== ENCOUNTER 2024-04-25 09:45 | Outpatient (CLI) | payer MEDICARE, SELFPAY ==
--- NOTE | ~2024-04-25 | CT_ITS ---
CT of the Abdomen and Pelvis: Indication: Abdominal pain Technique: 2.5 mm axial scans were obtained through the abdomen and pelvis following intravenous adm inistration of 100 cc of Omnipaque 350. Dose reduction technique was used on this scan by utilizing a utomated exposure control and iterative reconstruction technique. The dose-length product (DLP) was 9 13.61 mGy-cm. COMPARISON: 03/24/2023 Findings: Scans through the lung bases are unremarkable. There is diffuse hepatic steatosis. Cholecystectomy clips are present. The spleen, pancreas, adrenals and kidneys are within normal limits. There are atherosclerotic calcifications of the aorta. No lym phadenopathy. No bowel obstruction or bowel wall thickening. Duodenal diverticulum noted. There is sigmoid divertic ulosis. Images through the pelvis were performed. Urinary bladder unremarkable. Prostate gland is enlarged. S mall fat-containing left inguinal hernia noted. No ascites. Impression: No acute abnormalities seen. Diffuse hepatic steatosis. Small fat-containing left inguinal hernia. Reviewed, dictated and finalized at location M. Impression: No acute abnormalities seen. Diffuse hepatic steatosis. Small fat-containing left inguinal hernia.
[2024-04-25 10:06] LABS: Estimated Glomerular Filt Rate > 60
--- OUTSIDE RECORDS SUMMARY | 2024-04-25 10:22 | XMS_ITS | Data Portability ---
Author Organization [facility] YISELNate [facility] Address [address] [place] [address] Care Team Providers Care Road Test Examiner Name Role Phone NANI DORSEY Primary Care Provider Unavailabl e Assessment Encounter Date Assessment Date Assessment LastModified by Organization Details LastModified Time 04/12/2023 04/12/2023 Hypertension controlled we will continue current medications. CAD no angina or anginal equivalents we will continue with his medications. Dyslipidemia statin and Zetia osteoarthritis stable Tylenol as needed gallstones with recent ERCP follow-up with surgery he will follow-up with me in 4 months we will do blood work at that time we have requested all old record [email or web address] Not available 04/12/2023 21:51:03 07/25/2023 07/25/2023 diagnosis discussed all questions have been answered he will follow up with me in 4 months Not available 08/19/2023 19:09:16 11/13/2023 11/13/[address] Flomax fo r BPH. We will also check what the LD CT shows with regards to his current cough CBC CMP lipid PSA and a urinalysis follow up 4 months if the abdominal pain recurs he will call back secondary preventative measures for coronary disease ongoing management for his CAD hypertension GERD and hyperlipidemia and osteoarthritis. Needs colonoscopy [email or web address] Not available 11/13/2023 21:48:29 04/08/2024 04/08/2024 etiology of pain is not clear by history or by physical examination but it was a little bit concerning that it started right after surgery obtain CT abdomen and pelvis with contrast CBC CMP lipid lipase also check urinalysis medicines we will continue full follow up with me in 4 months further recommendations pending results of the CT scan. If it is negative I may have to have the surgeon just take a look at him to see if there is anything they can add versus GI Not available 04/12/2024 15:10:40 Plan of Treatment Reminders Order Date Submit Date Provider Last Modified By Organization Details Last Modified Time Details Appointments ANY 15 2024 09:30A M Nani Dorsey MD Not available Not available Not available Lab CBC w/ auto diff 2024 025 ROBESONIA Nell, [address], [place], [address], 04/09/2024 06:25:08 CMP, serum or plasma 2024 025 ROBESONIA Idania, [address], [place], [address], 04/09/2024 06:25:03 lipase, serum or plasma 2024 025 CAROLVIGNESH Camejo, [address], [place], [address], 04/09/2024 06:25:05 urinalysi s, complete 2024 025 CAROLVIGNESH Camejo, [address], [place], [address], 04/09/2024 06:25:07 lipid panel, serum 2024 025 CAROLVIGNESH Emerson, [address], [place], [address], 04/09/2024 06:25:02 urinalysi s, complete 2023 024 CAROL Emerson, [address], [place], [address], 11/14/2023 15:12:24 PSA, total, serum or plasma 2023 024 CAROL Emerson, [address], [place], [address], 11/14/2023 15:12:25 CBC w/ auto diff 2023 024 ROBESONIA [facility], [address], [place], [address], 11/14/2023 15:12:25 CMP, serum or plasma 2023 ROBESONIA [facility], [address], [place], [address], 11/14/2023 15:12:22 lipid panel, serum 2023 ROBESONIA [facility], [address], [place], [address], 11/14/2023 15:12:22 Referral None recorded. Procedures colonosco py screening (PROC) 2023 024 CAROL maldonado MD, [address], [address], [place], [address], 01/24/2024 17:22:31 Surgeries None recorded. Imaging CT, abdomen + pelvis, w/ contrast [address] (Imaging), [address] [facility] [address], [place], [address], 04/08/2024 12:08:02 LDCT, chest, for lung cancer screening 2023 024 CAROL Not available 11/13/2023 15:50:28 Medication Orders tamsulosi n 0.4 mg capsule 2023 [id number], [address] [place], [address], 11/13/2023 12:34:09 Patient TargetsNo targets recorded. Patient Instructions Encounter Date Encounter Id Patient Instructions Last Modified By Organization Details Last Modified Time 11/13/2023 [id number] A healthy lifestyle: care instructions [place] [id number] Not available 11/13/2023 11:18:44 Quitting Tobacco : Care Instructions [email or web address] Not available 11/13/2023 11:18:44 04/08/2024 [id number] A healthy lifestyle: care instructions Not available 04/08/2024 12:08:02 Reason for Referral None Reported. Results Created Date Observation Date Name Description Value Unit Range Abnormal Flag Note LastModifiedBy Organization Detail LastModifiedTime 10/29/19 24 10/29/2023 COLOG UARD cologuard result reportable POSITI VE negati ve abnormal POSIT REHANA TEST RESUL T. A posit rehana Colog uard resul t shoul d be follo wed with a colon oscop y or visua l exami natio n of the colon . The letty l value (refe rence range ) for this assay is negat rehana. TEST DESCR IPTIO N: [place] site algor ithmi c issac sis of stool DNA-b iomar kers with hemog lobin immun oassa y. Quant itati ve value s of indiv idual bioma rkers are not repor table and are not assoc iated with indiv idual bioma rker resul t refer ence range s. Colog uard is inten ded for color ectal cance r scree soumya of adult s of eithe r sex, 45 years or older , who are at [facility] for color ectal cance r (CRC) . Colog uard has been appro michelle for use by the U.S. FDA. The perfo rmanc e of Colog uard was estab lishe d in a cross secti onal study of [facility] adult s aged 50-84 . Colog uard perfo rmanc e in patie nts ages 45 to 49 years was estim ated by sub-g roup issac sis of near- age group s. Colon oscop ies perfo rmed for a posit rehana resul t may find as the most clini barney signi fican t lesio n: color ectal cance r [4.0% ], advan marvin adeno ma (incl uding sessi le teo marquise polyp s great er than or equal to 1cm diame ter) [20%] or non- advan marvin adeno ma [31%] ; or no color ectal neopl ifrah [45%] . These estim ates are deriv ed from a prosp ectiv e cross -sect ional scree soumya study of 0 indiv idual s at [place] ge risk for color ectal cance r who were scree rea with both Colog uard and colon oscop y. (Brianna Camacho et al, N Engl J Med 2014; 370(1 4):12 86-12 97.) Colog uard may produ ce a false negat rehana or false posit rehana resul t (no color ectal cance r or preca ncero us polyp prese nt at colon oscop y follo w up). A negat rehana Colog uard test resul t does not guara ntee the absen ce of CRC or advan marvin adeno ma (pre- cance r). The curre nt Colog uard scree soumya inter marcial is every 3 years . (Amer ican Cance r Socie ty and U.S. Multi -Soci ety Task Force ). Colog uard perfo rmanc e data in a 0 patie nt pivot al study using colon oscop y as the refer ence metho d can be acces sed at the [facility] locat ion: www.e xactl abs.c om/re clair . Addit ional descr iptio n of the Colog uard test proce ss, warni ngs and preca ution s can be found at www.c ologu ozzie.c om. Not Available [facility] (Cologuard Orders Only) [address], [place], [address], 11/03/2023 23:12:39 11/13/19 24 11/14/2023 SPECI MEN STATU S REPOR T specimen status report TNP Test not perfo rmed. Mathew nt was unabl e to provi de a self- colle cted speci men for the reque sted testi ng. The follo wing test( s) were not perfo rmed: TEST: 54009 [id number] Urina lysis , Compl ete Not Available [facility] ([facility]) [address] [place], [address], 11/14/2023 15:12:21 11/13/19 24 11/14/2023 LIPID PANEL cholesterol, total 93 mg/dL 100-19 9 below low normal Not Available [facility] ([facility]) [address] [place], [address], 11/14/2023 15:12:21 11/13/19 24 11/14/2023 LIPID PANEL triglyceride s 136 mg/dL 0-149 Not Available [facility] ([facility]) [address] [place], [address], 11/14/2023 15:12:21 11/13/19 24 11/14/2023 LIPID PANEL HDL cholesterol 33 mg/dL >39 below low normal Not Available [facility] ([facility]) [address] [place], [address], 11/14/2023 15:12:21 11/13/19 24 11/14/2023 LIPID PANEL VLDL cholesterol ross 24 mg/dL 5-40 Not Available [facility] ([facility]) [address] [place], [address], 11/14/2023 15:12:21 11/13/19 24 11/14/2023 LIPID PANEL LDL chol calc ([facility]) 36 mg/dL 0-99 Not Available [facility] ([facility]) [address] [place], [address], 11/14/2023 15:12:21 11/13/19 24 11/14/2023 COMP. METAB OLIC PANEL (14) glucose 97 mg/dL 70-99 Not Available [facility] ([facility]) [address] [place], [address], 11/14/2023 15:12:22 11/13/19 24 11/14/2023 COMP. METAB OLIC PANEL (14) BUN 6 mg/dL 8-27 below low normal Not Available [facility] ([facility]) [address] [place], [address], 11/14/2023 15:12:22 11/13/19 24 11/14/2023 COMP. METAB OLIC PANEL (14) creatinine 0.87 mg/dL 0.76-1 .27 Not Available [facility] ([facility]) [address] [place], [address], 11/14/2023 15:12:22 11/13/19 24 11/14/2023 COMP. METAB OLIC PANEL (14) eGFR 92 mL/mi n/1.7 3 >59 Not Available [facility] ([facility]) [address] [place], [address], 11/14/2023 15:12:22 11/13/19 24 11/14/2023 COMP. METAB OLIC PANEL (14) BUN/creatini ne ratio 7 10-24 below low normal Not Available [facility] ([facility]) [address] [place], [address], 11/14/2023 15:12:22 11/13/19 24 11/14/2023 COMP. METAB OLIC PANEL (14) sodium 140 mmol/ L 134-14 4 Not Available [facility] ([facility]) [address] [place], [address], 11/14/2023 15:12:22 11/13/19 24 11/14/2023 COMP. METAB OLIC PANEL (14) potassium 4.8 mmol/ L 3.5-5. 2 Not Available [facility] ([facility]) [address] [place], [address], 11/14/2023 15:12:22 11/13/19 24 11/14/2023 COMP. METAB OLIC PANEL (14) chloride 103 mmol/ L 96-106 Not Available [facility] ([facility]) [address] [place], [address], 11/14/2023 15:12:22 11/13/19 24 11/14/2023 COMP. METAB OLIC PANEL (14) carbon dioxide, total 20 mmol/ L 20-29 Not Available [facility] ([facility]) [address] [facility], [place], [address], 11/14/2023 15:12:22 11/13/19 24 11/14/2023 COMP. METAB OLIC PANEL (14) calcium 9.6 mg/dL 8.6-10 .2 Not Available [facility] ([facility]) [address] [facility], [place], [address], 11/14/2023 15:12:22 11/13/19 24 11/14/2023 COMP. METAB OLIC PANEL (14) protein, total 6.5 g/dL 6.0-8. 5 Not Available [facility] ([facility]) [address] [facility], [place], [address], 11/14/2023 15:12:22 11/13/19 24 11/14/2023 COMP. METAB OLIC PANEL (14) albumin 4.1 g/dL 3.8-4. 8 Not Available [facility] ([facility]) [address] [facility], [place], [address], 11/14/2023 15:12:22 11/13/19 24 11/14/2023 COMP. METAB OLIC PANEL (14) globulin, total 2.4 g/dL 1.5-4. 5 Not Available [facility] ([facility]) [address] [facility], [place], [address], 11/14/2023 15:12:22 11/13/19 24 11/14/2023 COMP. METAB OLIC PANEL (14) bilirubin, total 0.2 mg/dL 0.0-1. 2 Not Available [facility] ([facility]) [address] [place], [address], 11/14/2023 15:12:22 11/13/19 24 11/14/2023 COMP. METAB OLIC PANEL (14) alkaline phosphatase 106 IU/L 44-121 Not Available [facility] ([facility]) [address] [place], [address], 11/14/2023 15:12:22 11/13/19 24 11/14/2023 COMP. METAB OLIC PANEL (14) AST (SGOT) 17 IU/L 0-40 Not Available [facility] ([facility]) [address] [place], [address], 11/14/2023 15:12:22 11/13/19 24 11/14/2023 COMP. METAB OLIC PANEL (14) ALT (SGPT) 15 IU/L 0-44 Not Available [facility] ([facility]) [address] [place], [address], 11/14/2023 15:12:22 11/13/19 24 11/13/2023 UNABL E TO VOID unable to void Commen t Patie nt unabl e to void. Urine to be colle cted at a later date. Not Available [facility] ([facility]) [address] [place], [address], 11/14/2023 15:12:23 11/13/19 24 11/14/2023 URINA LYSIS , COMPL ETE specific gravity - Test not perfo rmed. Patie nt was unabl e to provi de a self- colle cted speci men for the reque sted testi ng. The follo wing test( s) were not perfo rmed: Not Available [facility] ([facility]) [address] [place], [address], 11/14/2023 15:12:24 11/13/19 24 11/14/2023 URINA LYSIS , COMPL ETE pH - Test not perfo rmed Not Available [facility] ([facility]) [address] [place], [address], 11/14/2023 15:12:24 11/13/1911/14/2023 URINA LYSIS , COMPL ETE protein - Test not perfo rmed Not Available [facility] ([facility]) [address] [facility], [place], [address], 11/14/2023 15:12:24 11/13/1911/14/2023 URINA LYSIS , COMPL ETE glucose - Test not perfo rmed Not Available [facility] ([facility]) [address] [facility], [place], [address], 11/14/2023 15:12:24 11/13/1911/14/2023 URINA LYSIS , COMPL ETE ketones - Test not perfo rmed Not Available [facility] ([facility]) [address] [facility], [place], [address], 11/14/2023 15:12:24 11/13/1911/14/2023 CBC WITH DIFFE RENTI AL/PL ATELE T WBC 8.2 x10e3 /uL 3.4-10 .8 Not Available [facility] ([facility]) [address] [facility], [place], [address], 11/14/2023 15:12:24 11/13/1911/14/2023 CBC WITH DIFFE RENTI AL/PL ATELE T RBC 5.10 x10e6 /uL 4.14-5 .80 Not Available [facility] ([facility]) [address] [facility], [place], [address], 11/14/2023 15:12:24 11/13/1911/14/2023 CBC WITH DIFFE RENTI AL/PL ATELE T hemoglobin 12.0 g/dL 13.0-1 7.7 below low normal Not Available [facility] ([facility]) [address] [place], [address], 11/14/2023 15:12:24 11/13/19 24 11/14/2023 CBC WITH DIFFE RENTI AL/PL ATELE T hematocrit 41.0 % 37.5-5 1.0 Not Available [facility] ([facility]) [address] [facility], [place], [address], 11/14/2023 15:12:24 11/13/1911/14/2023 CBC WITH DIFFE RENTI AL/PL ATELE T MCV 80 fL 79-97 Not Available [facility] ([facility]) [address] [facility], [place], [address], 11/14/2023 15:12:24 11/13/1911/14/2023 CBC WITH DIFFE RENTI AL/PL ATELE T MCH 23.5 pg 26.6-3 3.0 below low normal Not Available [facility] ([facility]) [address] [facility], [place], [address], 11/14/2023 15:12:24 11/13/19 24 11/14/2023 CBC WITH DIFFE RENTI AL/PL ATELE T MCHC 29.3 g/dL 31.5-3 5.7 below low normal Not Available [facility] ([facility]) [address] [facility], [place], [address], 11/14/2023 15:12:24 11/13/19 24 11/14/2023 CBC WITH DIFFE RENTI AL/PL ATELE T RDW 16.0 % 11.6-1 5.4 above high normal Not Available [facility] ([facility]) [address] [place], [address], 11/14/2023 15:12:24 11/13/19 24 11/14/2023 CBC WITH DIFFE RENTI AL/PL ATELE T platelets 432 x10e3 /uL 150-45 0 Not Available [facility] ([facility]) [address] [place], [address], 11/14/2023 15:12:24 11/13/19 24 11/14/2023 CBC WITH DIFFE RENTI AL/PL ATELE T neutrophils 60 % notest ab. Not Available [facility] ([facility]) [address] [facility], [place], [address], 11/14/2023 15:12:24 11/13/19 24 11/14/2023 CBC WITH DIFFE RENTI AL/PL ATELE T lymphs 23 % notest ab. Not Available [facility] ([facility]) [address] [facility], [place], [address], 11/14/2023 15:12:24 11/13/1911/14/2023 CBC WITH DIFFE RENTI AL/PL ATELE T monocytes 12 % notest ab. Not Available [facility] ([facility]) [address] [facility], [place], [address], 11/14/2023 15:12:24 11/13/19 24 11/14/2023 CBC WITH DIFFE RENTI AL/PL ATELE T eos 4 % notest ab. Not Available [facility] ([facility]) [address] [facility], [place], [address], 11/14/2023 15:12:24 11/13/19 24 11/14/2023 CBC WITH DIFFE RENTI AL/PL ATELE T basos 1 % notest ab. Not Available [facility] ([facility]) [address] [facility], [place], [address], 11/14/2023 15:12:24 11/13/1911/14/2023 CBC WITH DIFFE RENTI AL/PL ATELE T neutrophils (absolute) 4.9 x10e3 /uL 1.4-7. 0 Not Available [facility] ([facility]) [address] [facility], [place], [address], 11/14/2023 15:12:24 11/13/19 24 11/14/2023 CBC WITH DIFFE RENTI AL/PL ATELE T lymphs (absolute) 1.8 x10e3 /uL 0.7-3. 1 Not Available [facility] ([facility]) [address] [facility], [place], [address], 11/14/2023 15:12:24 11/13/19 24 11/14/2023 CBC WITH DIFFE RENTI AL/PL ATELE T monocytes(ab solute) 1.0 x10e3 /uL 0.1-0. 9 above high normal Not Available [facility] ([facility]) [address] [facility], [place], [address], 11/14/2023 15:12:24 11/13/19 24 11/14/2023 CBC WITH DIFFE RENTI AL/PL ATELE T eos (absolute) 0.3 x10e3 /uL 0.0-0. 4 Not Available [facility] ([facility]) [address] [facility], [place], [address], 11/14/2023 15:12:24 11/13/19 24 11/14/2023 CBC WITH DIFFE RENTI AL/PL ATELE T baso (absolute) 0.1 x10e3 /uL 0.0-0. 2 Not Available [facility] ([facility]) [address] [facility], [place], [address], 11/14/2023 15:12:24 11/13/19 24 11/14/2023 CBC WITH DIFFE RENTI AL/PL ATELE T immature granulocytes 0 % notest ab. Not Available [facility] ([facility]) [address] [facility], [place], [address], 11/14/2023 15:12:24 11/13/19 24 11/14/2023 CBC WITH DIFFE RENTI AL/PL ATELE T immature grans (abs) 0.0 x10e3 /uL 0.0-0. 1 Not Available [facility] ([facility]) [address] [place], [address], 11/14/2023 15:12:24 11/13/19 24 11/14/2023 PROST ATE-S PECIF IC AG prostate specific Ag 1.3 NG/mL 0.0-4. 0 [place] ECLIA metho dolog y. Accor ding to the Ameri can Urolo gical Assoc iatio n, Serum PSA shoul d decre ase and remai n at undet ectab le level s after radic al prost atect west. The AUA defin es bioch emica l recur rence as an initi al PSA value 0.2 ng/mL or great er follo wed by a subse quent confi rmato ry PSA value 0.2 ng/mL or great er. Value s obtai rea with diffe rent assay metho ds or kits canno t be used inter serrato eay . Resul ts canno t be inter prete d as absol [place] evide nce of the prese nce or absen ce of [facility] se. Not Available [facility] ([facility]) [address] [place], [address], 11/14/2023 15:12:25 04/08/19 25 04/09/2024 LIPID PANEL cholesterol, total 107 mg/dL 100-19 9 Not Available [facility] ([facility]) [address] [place], [address], 04/09/2024 06:25:02 04/08/1904/09/2024 LIPID PANEL triglyceride s 109 mg/dL 0-149 Not Available [facility] ([facility]) [address] [place], [address], 04/09/2024 06:25:02 04/08/1904/09/2024 LIPID PANEL HDL cholesterol 35 mg/dL >39 below low normal Not Available [facility] ([facility]) [address] [place], [address], 04/09/2024 06:25:02 04/08/19 25 04/09/2024 LIPID PANEL VLDL cholesterol ross 20 mg/dL 5-40 Not Available [facility] ([facility]) [address] [place], [address], 04/09/2024 06:25:02 04/08/19 25 04/09/2024 LIPID PANEL LDL chol calc ([facility]) 52 mg/dL 0-99 Not Available [facility] ([facility]) [address] [place], [address], 04/09/2024 06:25:02 04/08/19 25 04/09/2024 COMP. METAB OLIC PANEL (14) glucose 86 mg/dL 70-99 Not Available [facility] ([facility]) [address] [place], [address], 04/09/2024 06:25:03 04/08/19 25 04/09/2024 COMP. METAB OLIC PANEL (14) BUN 8 mg/dL 8-27 Not Available [facility] ([facility]) [address] [place], [address], 04/09/2024 06:25:03 04/08/19 25 04/09/2024 COMP. METAB OLIC PANEL (14) creatinine 0.96 mg/dL 0.76-1 .27 Not Available [facility] ([facility]) [address] [place], [address], 04/09/2024 06:25:03 04/08/19 25 04/09/2024 COMP. METAB OLIC PANEL (14) eGFR 84 mL/mi n/1.7 3 >59 Not Available [facility] ([facility]) [address] [place], [address], 04/09/2024 06:25:03 04/08/19 25 04/09/2024 COMP. METAB OLIC PANEL (14) BUN/creatini ne ratio 8 10-24 below low normal Not Available [facility] ([facility]) [address] [place], [address], 04/09/2024 06:25:03 04/08/19 25 04/09/2024 COMP. METAB OLIC PANEL (14) sodium 139 mmol/ L 134-14 4 Not Available [facility] ([facility]) [address] [place], [address], 04/09/2024 06:25:03 04/08/19 25 04/09/2024 COMP. METAB OLIC PANEL (14) potassium 4.8 mmol/ L 3.5-5. 2 Not Available [facility] ([facility]) [address] [place], [address], 04/09/2024 06:25:03 04/08/19 25 04/09/2024 COMP. METAB OLIC PANEL (14) chloride 103 mmol/ L 96-106 Not Available [facility] ([facility]) [address] [place], [address], 04/09/2024 06:25:03 04/08/19 25 04/09/2024 COMP. METAB OLIC PANEL (14) carbon dioxide, total 23 mmol/ L 20-29 Not Available [facility] ([facility]) [address] [place], [address], 04/09/2024 06:25:03 04/08/19 25 04/09/2024 COMP. METAB OLIC PANEL (14) calcium 9.2 mg/dL 8.6-10 .2 Not Available [facility] ([facility]) [address] [place], [address], 04/09/2024 06:25:03 04/08/19 25 04/09/2024 COMP. METAB OLIC PANEL (14) protein, total 6.3 g/dL 6.0-8. 5 Not Available [facility] ([facility]) [address] [place], [address], 04/09/2024 06:25:03 04/08/19 25 04/09/2024 COMP. METAB OLIC PANEL (14) albumin 4.3 g/dL 3.8-4. 8 Not Available [facility] ([facility]) [address] [place], [address], 04/09/2024 06:25:03 04/08/19 25 04/09/2024 COMP. METAB OLIC PANEL (14) globulin, total 2.0 g/dL 1.5-4. 5 Not Available [facility] ([facility]) [address] [place], [address], 04/09/2024 06:25:03 04/08/19 25 04/09/2024 COMP. METAB OLIC PANEL (14) bilirubin, total 0.4 mg/dL 0.0-1. 2 Not Available [facility] ([facility]) [address] [place], [address], 04/09/2024 06:25:03 04/08/19 25 04/09/2024 COMP. METAB OLIC PANEL (14) alkaline phosphatase 105 IU/L 44-121 Not Available [facility] ([facility]) [address] [place], [address], 04/09/2024 06:25:03 04/08/19 25 04/09/2024 COMP. METAB OLIC PANEL (14) AST (SGOT) 16 IU/L 0-40 Not Available [facility] ([facility]) [address] [place], [address], 04/09/2024 06:25:03 04/08/19 25 04/09/2024 COMP. METAB OLIC PANEL (14) ALT (SGPT) 16 IU/L 0-44 Not Available [facility] ([facility]) [address] [place], [address], 04/09/2024 06:25:03 04/08/19 25 04/09/2024 MICRO SCOPI C EXAMI NATIO N WBC None seen /hpf 0-5 Not Available [facility] ([facility]) [address] [facility], [place], [address], 04/09/2024 06:25:05 04/08/1904/09/2024 MICRO SCOPI C EXAMI NATIO N RBC None seen /hpf 0-2 Not Available [facility] ([facility]) [address] [facility], [place], [address], 04/09/2024 06:25:05 04/08/1904/09/2024 MICRO SCOPI C EXAMI NATIO N epithelial cells (non renal) None seen /hpf 0-10 Not Available [facility] ([facility]) [address] [facility], [place], [address], 04/09/2024 06:25:05 04/08/1904/09/2024 MICRO SCOPI C EXAMI NATIO N casts None seen /lpf nonese en Not Available [facility] ([facility]) [address] [facility], [place], [address], 04/09/2024 06:25:05 04/08/1904/09/2024 MICRO SCOPI C EXAMI NATIO N bacteria None seen nonese en/few Not Available [facility] ([facility]) [address] [facility], [place], [address], 04/09/2024 06:25:05 04/08/1904/09/2024 LIPAS E lipase 34 U/L 13-78 Not Available [facility] ([facility]) [address] [facility], [place], [address], 04/09/2024 06:25:05 04/08/1904/09/2024 URINA LYSIS , COMPL ETE specific gravity 1.008 1.005- 1.030 Not Available [facility] ([facility]) [address] [facility], [place], [address], 04/09/2024 06:25:06 04/08/1904/09/2024 URINA LYSIS , COMPL ETE pH 7.0 5.0-7. 5 Not Available [facility] ([facility]) [address] [place], [address], 04/09/2024 06:25:06 04/08/1904/09/2024 URINA LYSIS , COMPL ETE urine-color YELLOW yellow Not Available [facility] ([facility]) [address] [place], [address], 04/09/2024 06:25:06 04/08/1904/09/2024 URINA LYSIS , COMPL ETE appearance CLEAR clear Not Available [facility] ([facility]) [address] [place], [address], 04/09/2024 06:25:06 04/08/1904/09/2024 URINA LYSIS , COMPL ETE WBC esterase NEGATI VE negati ve Not Available [facility] ([facility]) [address] [place], [address], 04/09/2024 06:25:06 04/08/1904/09/2024 URINA LYSIS , COMPL ETE protein NEGATI VE negati ve/tra ce Not Available [facility] ([facility]) [address] [place], [address], 04/09/2024 06:25:06 04/08/1904/09/2024 URINA LYSIS , COMPL ETE glucose NEGATI VE negati ve Not Available [facility] ([facility]) [address] [place], [address], 04/09/2024 06:25:06 04/08/1904/09/2024 URINA LYSIS , COMPL ETE ketones NEGATI VE negati ve Not Available [facility] ([facility]) [address] [place], [address], 04/09/2024 06:25:06 04/08/19 25 04/09/2024 URINA LYSIS , COMPL ETE occult blood NEGATI VE negati ve Not Available [facility] ([facility]) [address] [facility], [place], [address], 04/09/2024 06:25:06 04/08/19 25 04/09/2024 URINA LYSIS , COMPL ETE bilirubin NEGATI VE negati ve Not Available [facility] ([facility]) [address] [facility], [place], [address], 04/09/2024 06:25:06 04/08/19 25 04/09/2024 URINA LYSIS , COMPL ETE urobilinogen ,semi-qn 0.2 mg/dL 0.2-1. 0 Not Available [facility] ([facility]) [address] [place], [address], 04/09/2024 06:25:06 04/08/19 25 04/09/2024 URINA LYSIS , COMPL ETE nitrite, urine NEGATI VE negati ve Not Available [facility] ([facility]) [address] [place], [address], 04/09/2024 06:25:06 04/08/19 25 04/09/2024 URINA LYSIS , COMPL ETE microscopic examination COMMEN T Micro scopi c follo ws if indic ated. Not Available [facility] ([facility]) [address] [facility], [place], [address], 04/09/2024 06:25:06 04/08/1904/09/2024 URINA LYSIS , COMPL ETE microscopic examination SEE BELOW: Micro scopi c was indic ated and was perfo rmed. Not Available [facility] ([facility]) [address] [place], [address], 04/09/2024 06:25:06 04/08/19 25 04/08/2024 CBC WITH DIFFE RENTI AL/PL ATELE T WBC 6.5 x10e3 /uL 3.4-10 .8 Not Available [facility] ([facility]) [address] [place], [address], 04/09/2024 06:25:08 04/08/1904/08/2024 CBC WITH DIFFE RENTI AL/PL ATELE T RBC 5.13 x10e6 /uL 4.14-5 .80 Not Available [facility] ([facility]) [address] [place], [address], 04/09/2024 06:25:08 04/08/1904/08/2024 CBC WITH DIFFE RENTI AL/PL ATELE T hemoglobin 12.3 g/dL 13.0-1 7.7 below low normal Not Available [facility] ([facility]) [address] [place], [address], 04/09/2024 06:25:08 04/08/1904/08/2024 CBC WITH DIFFE RENTI AL/PL ATELE T hematocrit 40.4 % 37.5-5 1.0 Not Available [facility] ([facility]) [address] [place], [address], 04/09/2024 06:25:08 04/08/1904/08/2024 CBC WITH DIFFE RENTI AL/PL ATELE T MCV 79 fL 79-97 Not Available [facility] ([facility]) [address] [place], [address], 04/09/2024 06:25:08 04/08/1904/08/2024 CBC WITH DIFFE RENTI AL/PL ATELE T MCH 24.0 pg 26.6-3 3.0 below low normal Not Available [facility] ([facility]) [address] [place], [address], 04/09/2024 06:25:08 04/08/19 25 04/08/2024 CBC WITH DIFFE RENTI AL/PL ATELE T MCHC 30.4 g/dL 31.5-3 5.7 below low normal Not Available [facility] ([facility]) [address] [facility], [place], [address], 04/09/2024 06:25:08 04/08/19 25 04/08/2024 CBC WITH DIFFE RENTI AL/PL ATELE T RDW 16.1 % 11.6-1 5.4 above high normal Not Available [facility] ([facility]) [address] [facility], [place], [address], 04/09/2024 06:25:08 04/08/19 25 04/08/2024 CBC WITH DIFFE RENTI AL/PL ATELE T platelets 330 x10e3 /uL 150-45 0 Not Available [facility] ([facility]) [address] [facility], [place], [address], 04/09/2024 06:25:08 04/08/19 25 04/08/2024 CBC WITH DIFFE RENTI AL/PL ATELE T neutrophils 47 % notest ab. Not Available [facility] ([facility]) [address] [facility], [place], [address], 04/09/2024 06:25:08 04/08/19 25 04/08/2024 CBC WITH DIFFE RENTI AL/PL ATELE T lymphs 30 % notest ab. Not Available [facility] ([facility]) [address] [place], [address], 04/09/2024 06:25:08 04/08/19 25 04/08/2024 CBC WITH DIFFE RENTI AL/PL ATELE T monocytes 18 % notest ab. Not Available [facility] ([facility]) [address] [place], [address], 04/09/2024 06:25:08 04/08/19 25 04/08/2024 CBC WITH DIFFE RENTI AL/PL ATELE T eos 4 % notest ab. Not Available [facility] ([facility]) [address] [place], [address], 04/09/2024 06:25:08 04/08/19 25 04/08/2024 CBC WITH DIFFE RENTI AL/PL ATELE T basos 1 % notest ab. Not Available [facility] ([facility]) [address] [place], [address], 04/09/2024 06:25:08 04/08/19 25 04/08/2024 CBC WITH DIFFE RENTI AL/PL ATELE T neutrophils (absolute) 3.1 x10e3 /uL 1.4-7. 0 Not Available [facility] ([facility]) [address] [place], [address], 04/09/2024 06:25:08 04/08/19 25 04/08/2024 CBC WITH DIFFE RENTI AL/PL ATELE T lymphs (absolute) 1.9 x10e3 /uL 0.7-3. 1 Not Available [facility] ([facility]) [address] [place], [address], 04/09/2024 06:25:08 04/08/19 25 04/08/2024 CBC WITH DIFFE RENTI AL/PL ATELE T monocytes(ab solute) 1.2 x10e3 /uL 0.1-0. 9 above high normal Not Available [facility] ([facility]) [address] [place], [address], 04/09/2024 06:25:08 04/08/1904/08/2024 CBC WITH DIFFE RENTI AL/PL ATELE T eos (absolute) 0.3 x10e3 /uL 0.0-0. 4 Not Available [facility] ([facility]) [address] [place], [address], 04/09/2024 06:25:08 04/08/19 25 04/08/2024 CBC WITH DIFFE RENTI AL/PL ATELE T baso (absolute) 0.1 x10e3 /uL 0.0-0. 2 Not Available [facility] ([facility]) [address] [facility], [place], [address], 04/09/2024 06:25:08 04/08/19 25 04/08/2024 CBC WITH DIFFE RENTI AL/PL ATELE T immature granulocytes 0 % notest ab. Not Available [facility] ([facility]) [address] [facility], [place], [address], 04/09/2024 06:25:08 04/08/19 25 04/08/2024 CBC WITH DIFFE RENTI AL/PL ATELE T immature grans (abs) 0.0 x10e3 /uL 0.0-0. 1 Not Available [facility] ([facility]) [address] [facility], [place], [address], 04/09/2024 06:25:08 11/13/19 24 11/13/2023 LDCT, chest , for lung cance r douglase soumya No observ ation record ed. [facility] [address] [place], [address], 11/15/2023 11:20:33 Result Notes None recorded. Problems Name Problem SNOMED Code Status Onset Date Resolution Date Notes Provider Name and Address Organization Details Recorded Time Gallstone 114264075 Completed 202304/12/2023 Removal Reason: 03/24/19 24 Eduard Menjivar MA null, [place] - [facility] 4 16:33:39 Disorder of gallbladd er 06603198 Active 2023 Eduard Menjivar [place] null, [place] - [facility] 4 16:34:36 Coronary atheroscl erosis 848013018 Active 2023 Nani Dorsey MD Attn: Eloisa sainz,[address] [facility], [place], [address], [place] - [facility] 4 21:46:56 Essential hypertens ion 66081730 Active 2023 Nani Dorsey MD Attn: Eloisa emeli,[address] [facility], [place], [address], [facility] - [facility] 4 21:47:04 Hyperlipi demia 73456545 Active 2023 Nani Dorsey MD Attn: Eloisa sainz,[address] [facility], [place], [address], [facility] - [facility] 4 21:47:11 Osteoarth ritis 279861186 Active 2023 Nani Dorsey MD Attn: Eloisa sainz,[address] [place], [address], [facility] - [facility] 4 21:47:26 Gastro-es ophageal reflux disease with esophagit is 607020032 Active 2023 Nani Dorsey MD Attn: Eloisa sainz,[address] [place], [address], [facility] - [facility] 4 21:47:39 Cholelith iasis without obstructi on 03008461 Active 2023 Nani Dorsey MD Attn: Eloisa emeli,[address] [place], [address], [facility] - [facility] 4 21:48:21 Abdominal pain 08622486 Active 2024 Emilie Nunez MA null, [place] - [facility] 5 10:39:10 Problem Notes None recorded. Procedures Surgical History Date Name Laterality Status Provider Name and Address Organization Details Recorded Time Ercp remove forgn body duct completed Eduard Menjivar MA [facility] 04/12/2023 16:28:12 Stent placemt ante carotid completed Eduard Menjivar [place] - [facility] 04/12/2023 16:29:08 Imaging Results Imaging Date Name Status [facility] Details LastModified Time 11/13/2023 LDCT, chest, for lung cancer screening completed [facility] [address] [place], [address], 11/15/2023 11:20:33 Procedure Notes None recorded. Medical Equipment None Reported. Allergies No known drug allergies Medications Name Sig Start Date Stop Date Status Note LastModified by Organization Details LastModified Time carvedilol 12.5 mg tablet TAKE 1 TABLET TWICE A DAY 2024 active Not Available Not Available Not Avai lable metronidazo le 500 mg tablet TAKE 1 TABLET BY MOUTH EVERY 8 HOURS UNTIL ALL ARE TAKEN 11/12 completed Not Available Not Available Not Available clopidogrel 75 mg tablet TAKE 1 TABLET DAILY 2024 active Not Available Not Available Not Avai lable simvastatin 80 mg tablet TAKE 1 TABLET DAILY 04/08 completed Not Available Not Available Not Available aspirin 81 mg tablet,eduin yed release Take 1 tablet every day by oral route. active Not Available Not Available No t Available simvastatin 40 mg tablet Take 1 tablet every day by oral route. active Not Available Not Available No t Available oxycodone-a cetaminophe n 5 mg-325 mg tablet TAKE 1/2 TO 1 TABLET BY MOUTH EVERY 4 HOURS NEEDED FOR PAIN 11/12 completed Not Available Not Available Not Available amoxicillin 875 mg tablet TAKE 1 TABLET BY MOUTH TWICE A DAY completed Not Available Not Available Not Available tamsulosin 0.4 mg capsule TAKE 1 CAPSULE BY MOUTH EVERY DAY 2024 active Not Available Not Available Not Avai lable pantoprazol e 40 mg tablet,eduin yed release TAKE 1 TABLET DAILY 2024 active Not Available Not Available Not Avai lable levofloxaci n 500 mg tablet TAKE 1 AND A HALF TABLETS BY MOUTH ONCE A DAY FOR 7 DAYS completed Not Available Not Available Not Available ramipril 10 mg capsule TAKE 1 CAPSULE DAILY 2024 active Not Available Not Available Not Avai lable amoxicillin 875 mg-potassiu m clavulanate 125 mg tablet TAKE 1 TABLET BY MOUTH TWICE A DAY UNTIL FINISHED 11/12 completed Not Available Not Available Not Available ezetimibe 10 mg tablet TAKE 1 TABLET DAILY 2024 active Not Available Not Available Not Avai lable aspirin 1 tablet daily 04/08 completed Not Available Not Available Not Available Vitals Date Recorded Body height Body mass index (BMI) Body weight Heart rate Oxygen saturation Oxygen saturation in Arterial blood by Pulse oximetry Systolic blood pressure Diastolic blood pressure Provider Name and Address Organization Details Last Updated DateTime 4 172.72 cm 28.3 kg/m2 94193.1 8 g 77 /min 95 % 95 % 126 mm[Hg] 70 mm[Hg] Eduard Menjivar MA [facility] 4 16:37:19 Date Recorded Body height Body mass index (BMI) Body weight Heart rate Oxygen saturation Oxygen saturation in Arterial blood by Pulse oximetry Systolic blood pressure Diastolic blood pressure Provider Name and Address Organization Details Last Updated DateTime 4 172.72 cm 29.7 kg/m2 07630.6 7 g 79 /min 98 % 98 % 142 mm[Hg] 80 mm[Hg] Winsome Craig MA [facility] 4 09:59:22 Date Recorded Body height Body mass index (BMI) Body weight Heart rate Oxygen saturation Oxygen saturation in Arterial blood by Pulse oximetry Systolic blood pressure Diastolic blood pressure Provider Name and Address Organization Details Last Updated DateTime 4 172.72 cm 29.5 kg/m2 19649.2 8 g 69 /min 98 % 98 % 124 mm[Hg] 68 mm[Hg] Smita Teixeira MA [facility] 4 10:02:22 Date Recorded Body height Body mass index (BMI) Body weight Heart rate Oxygen saturation Oxygen saturation in Arterial blood by Pulse oximetry Systolic blood pressure Diastolic blood pressure Provider Name and Address Organization Details Last Updated DateTime 5 172.72 cm 30.6 kg/m2 16369.0 7 g 71 /min 96 % 96 % 166 mm[Hg] 84 mm[Hg] Julee Ram MA [facility] 5 10:08:38 Social History Question Answer Notes LastModified by Organizat ion Details LastModified Time Tobacco Smoking Status Current Every Day Smoker Smita Teixeira MA [facility], [facility] 11/13/2023 09:59:58 Do You Have An Advance Directive? No Information not available 04/12/2023 What Is Your Level Of Alcohol Consumption? Occasional Information not available 04/12/2023 Are You Blind Or Do You Have Difficulty Seeing? No Information not available 04/12/2023 What Is Your Level Of Caffeine Consumption? Heavy Information not available 04/12/2023 In The 14 Days Before Symptom Onset, Have You Had Close Contact With A Laboratory-confir med COVID-19 While That Case Was Ill? No Information not available 11/13/2023 In The 14 Days Before Symptom Onset, Have You Had Close Contact With A Person Who Is Under Investigation For COVID-19 While That Person Was Ill? No Information not available 11/13/2023 Have You Been To An Area Known To Be High Risk For COVID-19? No Information not available 11/13/2023 Are You Currently Employed? No Information not available 11/13/2023 Are You Deaf Or Do You Have Serious Difficulty Hearing? No Information not available 04/12/2023 What Type Of Diet Are You Following? REGULAR Information not available 04/12/2023 Are There Any Guns Present In Your Home? No Information not available 04/12/2023 What Was The Date Of Your Most Recent Tobacco Screening? 04/08/2024 Information not available 04/08/2024 What Is Your Current Pack Years? 10-19packyears Information not available 04/12/2023 What Is Your Relationship Status? Information not available 04/12/2023 Do You Use Your Seat Belt Or Car Seat Routinely? Yes Information not available 04/12/2023 Do You Have Smoke And Carbon Monoxide Detectors In Your Home? Yes Information not available 04/12/2023 How Much Tobacco Do You Smoke? 0.5 PPD Information not available 04/12/2023 Do You Feel Stressed (tense, Restless, Nervous, Or Anxious, Or Unable To Sleep At Night)? [id number] Information not available 04/12/2023 Do You Use Any Illicit Or Recreational Drugs? No Information not available 04/12/2023 Do You Use Sunscreen Routinely? Yes Information not available 11/13/2023 Has Tobacco Cessation Counseling Been Provided? Yes Information not available 04/12/2023 On What Date Was Tobacco Cessation Counseling Provided? 04/08/2024 Information not available 04/08/2024 Do You Or Have You Ever Used Any Other Forms Of Tobacco Or Nicotine? No Information not available 04/12/2023 Sex: Male Functional Status Question Answer Note LastModified by Organization D etails LastModified Time Are you able to care for yourself? Yes Information n ot available 04/12/2023 What is your exercise level? None Information not available 04/12/2023 Mental Status None recorded. Family History Relationship Description Onset Age of this Age Resolved Age Notes LastModified by Organization Details LastModified Time Mother Hypertensive disorder [email or web address] Not available 2024 09:39:50 Medical History Condition Response Coronary Artery Disease Y Other N High Blood Pressure Y Atrial Fibrillation N Thyroid Problems N Kidney or Bladder Problems N Depression N COPD N Blood Clots N GI Problems Y Have you had a mammogram in the last yea r? N Skin Problems N Anemia N Heart Attack (CA) Y Anxiety Disorder N Diabetes N Muscle, Joint, or Bone Problems Y Seizures/Epilepsy N Have you had a colonoscopy in the last 1 0 years? Y Acid Reflux (GERD) Y Cancer N Stroke N Asthma N Allergies N Have you had a PSA blood test in the las t year? Y High Cholesterol Y Hepatitis N Liver Disease N Headaches N Osteoporosis N Heart Failure N Immunizations Vaccine Type Date Status Note Provider Nam e and Address Organization Details Recorded Time COVID-19, mRNA, LNP-S, PF, 100 mcg/0.5mL dose or 50 mcg/0.25mL dose 03/03/2021 completed DAVINA Peters, [place] - [facility] 09/07/2023 14:59:31 COVID-19, mRNA, LNP-S, PF, 100 mcg/0.5mL dose or 50 mcg/0.25mL dose 03/15/2020 completed DAVINA [place], [place] [facility] 09/07/2023 14:59:31 COVID-19, mRNA, LNP-S, PF, 100 mcg/0.5mL dose or 50 mcg/0.25mL dose 04/12/2020 completed DAVINA Peters, [place] - [facility] 09/07/2023 14:59:31 Influenza, high-dose, trivalent, PF 03/12/2018 completed Emilie Nunez [place], [place] - [facility] 09/07/2023 14:59:31 Past Encounters Encounter ID Performer Location Encounter Start Date Encounter Closed Date Diagnosis/Indication Diagnosis SNOMED-CT Code Diagnosis ICD10 Code Diagnosis Note [id number] MD Matias Dutta (Adult Med) [address] [place] [id number] 04/12/2023 16:09:29 04/12/2023 16:55:36 Essential hypertension 89453652 I10 Coronary atherosclerosis 206970842 I25.10 Gastro-eso phageal reflux disease with esophagitis 877478082 K21.00 Hyperlipidemia 23313450 E78.5 Osteoarthritis 595699481 M19.90 Cholelithi asis without obstruction 60426854 K80.20 [id number] MD Matias Dutta (Adult Med) [address] [place] [phone] 07/25/2023 09:52:22 07/25/2023 10:17:21 Coronary atherosclerosis 315892612 I25.10 Essential hypertension 43149618 I10 Gastro-eso phageal reflux disease with esophagitis 812328582 K21.00 Hyperlipidemia 08815757 E78.5 [id number] MD Matias Dutta (Adult Med) [address] [place] [id number] 11/13/2023 09:52:23 11/13/2023 11:04:55 Overweight 893397021 E66.3 Smoker 85875143 F17.200 Essential hypertension 51180822 I10 Hyperlipidemia 78197693 E78.5 Screening for malignant neoplasm of prostate 973669348 Z12.5 Abdominal pain 41920009 R10.9 Colorectal cancer detected by DNA-based stool screening 254964311 R19.5 Nicotine dependence 5629 4008 F17.200 Z87.891 Benign pro static hyperplasia with outflow obstruction 675846510 N40.1 Coronary atherosclerosis 239345819 I25.10 Gastro-eso phageal reflux disease with esophagitis 703844149 K21.00 Osteoarthritis 957764683 M19.90 [id number] MD Matias Dutta (Adult Med) [address] [place] [phone] 04/08/2024 09:56:06 04/08/2024 10:41:32 Body mass index 30+ - obesity 047642824 Z68.30 Obesity 183378853 E66.9 Abdominal pain 57275859 R10.9 Essential hypertension 26661573 I10 Gastro-eso phageal reflux disease with esophagitis 244508750 K21.00 Hyperlipidemia 94253199 E78.5 Coronary atherosclerosis 134543594 I25.10 Health Concerns Section Related Observation LastModified by Organization Detai ls LastModified Time None Recorded Concern Status LastModified by Organization Details LastModified Time None Recorded Advance Directives Directive N: Payers Encounter Date Sequence Insurance Name Policy Number Policy Joyner Covered Member ID Joyner Member ID Guarantor Name 04/12/2023 2 [facility]EFIT [facility] (INDEMNITY) Te Miller [id number] Te Miller 04/12/2023 1 [place] Miller [id number] [place] 07/25/2023 2 [employer] [facility]EFIT [employer] (INDEMNITY) Te Miller [id number] Te Miller 07/25/2023 1 [place] Te Miller [id number] Te Miller 11/13/2023 2 [employer]EFIT [employer] (INDEMNITY) Te Miller [id number] Te Miller 11/13/2023 1 [place] Te Radha Miller [id number] 5 Te Miller 04/08/2024 2 [employer] [employer]EFIT [employer] (INDEMNITY) Te Miller [id number] Te Miller 04/08/2024 1 [place] Te Radha Paul [id number] 5 Te [place] Notes Date Note Type Note Provider Name and Address Organization Details Recorded Time 04/12/2023 text/html GALLBLADDER ISSU ES#1 hypertension no headache or dizziness takes his medications watch salt. #2 CAD no angina or anginal equivalents. #3 GERD no nausea or vomiting currently. #4 dyslipidemia taking his medication try to follow low-fat diet. #5 osteoarthritis stable involves the shoulders hands wrist and #6 gallstones with recent biliary colic necessitating hospitalization at [facility] with a ERCP patient has already been set up and will see the surgeon this coming Sunday in anticipation of cholecystectomy in the idi-rio-ebewoit future he is not having any symptoms of biliary colic at this time. Nani Dorsey MD Attn: [employer] [place], [address], [facility] 04/12/2023 21:51:43 07/25/2023 text/html #1 hypertension no headache or dizziness takes his medications watch salt. #2 CAD no angina or anginal equivalents. #3 GERD no nausea or vomiting currently. #4 dyslipidemia taking his medication try to follow low-fat diet. #5 osteoarthritis stable involves the shoulders hands wrist and Nani Dorsey MD Attn: [employer] [facility], [place], [address], [facility] - [facility] 08/19/2023 19:09:32 11/13/2023 text/html #1 hypertension no headache or dizziness takes his medications watch salt. #2 CAD no angina or anginal equivalents. #3 GERD no nausea or vomiting currently. But has had a little bit of abdominal discomfort in the right upper quadrant without any nausea or vomiting and was short-lived. He is getting up at night to urinate 2 or 3 times. During the day seems to be doing all right and he has had a little bit of cough nonproductive #4 dyslipidemia taking his medication try to follow low-fat diet. #5 osteoarthritis stable involves the shoulders hands wrist and . Nani Dorsey MD Attn: [employer] [facility], [place], [address], [place] - [facility] 11/13/2023 21:48:48 04/08/2024 text/html still having jayla e right-sided abdominal discomfort that wraps under his ribcage around to his flank at times it has been there ever since he has had his gallbladder surgery. He has not had any fever chills night sweats weight loss occasional have some loose stools CAD no chest pain or shortness of breath hypertension his blood pressure is up a little bit today he has not had any dizziness. Dyslipidemia is taking his simvastatin without any side effects Nani Dorsey MD Attn: Accounting[address] [facility], [place], [address], [facility] - [facility] 04/12/2024 15:11:03
--- OUTSIDE RECORDS SUMMARY | 2024-04-25 10:23 | XMS_ITS | Data Portability ---
Author Organization [place] [employer], Main Office Address [address] [place] [address] Assessment Encounter Date Assessment Date Assessment LastModified by Organization Details LastModified Time 09/19/2022 09/19/2022 X-ray the neck chiropractic referral blood work quit smoking follow-up with me in 4 months Not available 10/01/2022 21:55:20 Plan of Treatment Reminders Order Date Submit Date Provider Last Modified By Organization Details Last Modified Time Details Appointments None recorded. Lab CMP, serum or plasma 2022 023 CAROL Not available 3 13:51:52 lipid panel, serum 2022 023 CAROL Not available 3 13:51:56 CBC w/ auto diff 2022 023 CAROL Not available 3 13:02:44 Referral chiropracto r referral 2022 023 jami Stapleton DC, [address] , [place], [address], 3 08:48:33 Procedures None recorded. Surgeries None recorded. Imaging XR, cervical spine 2022 023 [email or web address] Not available 4 11:02:12 Medication Orders None recorded. Patient TargetsNo targets recorded. Patient InstructionsNo instructions recorded. Reason for Referral Chiropractor Referral for Ne ck pain Referring Physician: Aramis Dorsey, Internal Medicine, Encounter Date: 09/19/2022 Results Created Date Observation Date Name Description Value Unit Range Abnormal Flag Note LastModifiedBy Organization Detail LastModifiedTime 09/08/19 21 09/07/2020 PSA SCREE N PSA medicare screen 0.69 NG/mL 0.00-4 .00 Not Available [facility] (Lab) [address] [place], [address], 09/07/2020 14:34:33 09/08/19 21 09/07/2020 LIPID PANEL cholesterol 117 mg/dL 140-19 9 low NIH KATTY NSUS RECOM MENDA TION FOR NOAH STERO L: ADULT CHILD LOW RISK: <200 <170 BORDE RLINE : <200- 239 ----- HIGH RISK: >240 >200 Not Available [facility] (Lab) [address] [place], [address], 09/07/2020 20:38:57 09/08/19 21 09/07/2020 LIPID PANEL triglyceride s 175 mg/dL 0-150 high NIH KATTY NSUS REPOR T RECOM MENDA TION FOR TRIGL YCERI SHA: ADULT CHILD LOW RISK: <150 ----- BODER LINE: 150-1 99 ----- HIGH RISK: >200 ----- Not Available [facility] (Lab) [address] [place] [address], [address], 09/07/2020 20:38:57 09/08/19 21 09/07/2020 LIPID PANEL HDL cholesterol 39 mg/dL 40- low Not Available [facility] (Lab) [address] [place] [address], [address], 09/07/2020 20:38:57 09/08/19 21 09/07/2020 LIPID PANEL LDL cholesterol, calculated 43 mg/dL 0-130 NIH KATTY NSUS REPOR T RECOM MENDA TIONS FOR LDL: ADULT CHILD LOW RISK <130 <110 (OPTI MAL LDL) <100 ----- BORDE RLINE : 130-1 59 ----- HIGH RISK: >160 >130 A TRIGL YCERI DE RESUL T >400 INVAL IDATE S THE CALCU LATIO N FOR LDL FRACT IONAT ION - THE LDL RESUL T WILL NOT BE REPOR GRAYSON. Not Available [facility] (Lab) [address] [place], [address], 09/07/2020 20:38:57 09/08/19 21 09/07/2020 COMPR EHENS REHANA METAB OLIC PANEL sodium 139 mmol/ L 137-[address] [facility] (Lab) [address] [place], [address], 09/07/2020 20:38:53 09/08/19 21 09/07/2020 COMPR EHENS REHANA METAB OLIC PANEL potassium 4.2 mmol/ L 3.5-5. 1 Not Available [facility] (Lab) [address] [place], [address], 09/07/2020 20:38:53 09/08/19 21 09/07/2020 COMPR EHENS REHANA METAB OLIC PANEL chloride 104 mmol/ L 98-[address] [facility] (Lab) [address] [place], [address], 09/07/2020 20:38:53 09/08/19 21 09/07/2020 COMPR EHENS REHANA METAB OLIC PANEL carbon dioxide 26 mmol/ L 22-[address] [facility] (Lab) [address] [place], [address], 09/07/2020 20:38:53 09/08/19 21 09/07/2020 COMPR EHENS REHANA METAB OLIC PANEL agap 13.2 mmol/ L 14-[address] [facility] (Lab) [address] [place], [address], 09/07/2020 20:38:53 09/08/19 21 09/07/2020 COMPR EHENS REHANA METAB OLIC PANEL glucose 74 mg/dL 70-99 Not Available [facility] (Lab) [address] [place], [address], 09/07/2020 20:38:53 09/08/19 21 09/07/2020 COMPR EHENS REHANA METAB OLIC PANEL BUN 9 mg/dL 8-19 Not Available [facility] (Lab) [address] [place], [address], 09/07/2020 20:38:53 09/08/19 21 09/07/2020 COMPR EHENS REHANA METAB OLIC PANEL creatinine 0.72 mg/dL 0.66-1 .25 Not Available [facility] (Lab) [address] [facility], [place], [address], 09/07/2020 20:38:53 09/08/19 21 09/07/2020 COMPR EHENS REHANA METAB OLIC PANEL GFR >60 Refer ence Range : Brush ge GFR Healt hy Adult : >60 mL/mi n/1.7 3 m2 Chron ic Kidne y Disea se: 15-60 mL/mi n/1.7 3 m2 Kidne y Failu re: <15/m L/min /1.73 m2 www.n iddk. nih.g ov MDRD study equat ion hasn' t been valid ated in child liseth <18 yrs of age, pregn ant women , the elder ly >85 yrs of age, or in some racia l or ethni c subgr oups, suc as Hispa nics. Outsi de the valid ated graciela eters , estim ated GFR is less accur ate requi ring clini ross judgm ent on a case by case basis . Clini ross inter preta tion for other races and ages must be made by the clini brooks . Futhe rmore , any of th e limit ation s with the use of serum creat inine relat ed to nutri piper l statu s o r medic ation usage hasn' t accou nted for the MDRD Study equat ion. For perso ns < 18 yrs of age, a pedia tric GFR calcu lator can be locat ed on the [facility] websi te: https ://tenisha w.[email or web address] delgadoy.o rg/pr ofess ional s/kdo qi/gf r_cal culat or Not Available [facility] (Lab) [address] [place], [address], 09/07/2020 20:38:53 09/08/19 21 09/07/2020 COMPR EHENS REHANA METAB OLIC PANEL alkaline phosphatase 72 U/L 38-126 Not Available [facility] (Lab) [address] [facility] [place], [address], 09/07/2020 20:38:53 09/08/19 21 09/07/2020 COMPR EHENS REHANA METAB OLIC PANEL alanine aminotransfe rase 23 U/L 0-50 Not Available [facility] (Lab) [address] [place], [address], 09/07/2020 20:38:53 09/08/19 21 09/07/2020 COMPR EHENS REHANA METAB OLIC PANEL aspartate aminotransfe rase 27 U/L 15-46 Not Available [facility] (Lab) [address] [place], [address], 09/07/2020 20:38:53 09/08/19 21 09/07/2020 COMPR EHENS REHANA METAB OLIC PANEL bilirubin, total 0.60 mg/dL 0.20-1 .30 Not Available [facility] (Lab) [address] [place], [address], 09/07/2020 20:38:53 09/08/19 21 09/07/2020 COMPR EHENS REHANA METAB OLIC PANEL calcium 9.7 mg/dL 8.4-10 .2 Not Available [facility] (Lab) [address] [place], [address], 09/07/2020 20:38:53 09/08/19 21 09/07/2020 COMPR EHENS REHANA METAB OLIC PANEL total protein 6.7 g/dL 6.3-8. 2 Not Available [facility] (Lab) [address] [place], [address], 09/07/2020 20:38:53 09/08/19 21 09/07/2020 COMPR EHENS REHANA METAB OLIC PANEL albumin 4.2 g/dL 3.0-4. 4 Not Available [facility] (Lab) [address] [place], [address], 09/07/2020 20:38:53 09/08/19 21 09/07/2020 COMPR EHENS REHANA METAB OLIC PANEL globulin 2.5 g/dL 2.6-4. 2 low Not Available [facility] (Lab[facility] [address] [facility] [place], [address], 09/07/2020 20:38:53 09/08/19 21 09/07/2020 COMPR EHENS REHANA METAB OLIC PANEL A/G ratio 1.7 ratio 1.0-2. 0 Not Available [facility] (Lab) [address] [place], [address], 09/07/2020 20:38:53 03/01/19 22 03/01/2021 CBC/C OMPLE TE BLD COUNT W/DIF F mean red cell hemoglobin 31.6 pg 27.0-3 3.0 Not Available [facility] (Lab) [address] [place], [address], 03/01/2021 13:42:44 03/01/19 22 03/01/2021 CBC/C OMPLE TE BLD COUNT W/DIF F white blood cells 6.7 x10'3 /uL 4.2-10 .8 Not Available [facility] (Lab) [address] [place], [address], 03/01/2021 13:42:44 03/01/19 22 03/01/2021 CBC/C OMPLE TE BLD COUNT W/DIF F red blood cells 4.81 x10'6 /uL 4.10-5 .80 Not Available [facility] (Lab) [address] [place], [address], 03/01/2021 13:42:44 03/01/19 22 03/01/2021 CBC/C OMPLE TE BLD COUNT W/DIF F hemoglobin 15.2 g/dL 13.2-1 7.0 Not Available [facility] (Lab) [address] [place], [address], 03/01/2021 13:42:44 03/01/19 22 03/01/2021 CBC/C OMPLE TE BLD COUNT W/DIF F hematocrit 45.8 % 39.3-5 0.0 Not Available [facility] (Lab) [address] [place], [address], 03/01/2021 13:42:44 03/01/19 22 03/01/2021 CBC/C OMPLE TE BLD COUNT W/DIF F mean red cell volume 95.2 fL 80.0-9 7.0 Not Available [facility] (Lab) [address] [place], [address], 03/01/2021 13:42:44 03/01/19 22 03/01/2021 CBC/C OMPLE TE BLD COUNT W/DIF F mean RBC HGB concentratio n 33.2 g/dL 31.0-3 6.0 Not Available [facility] (Lab) [address] [place], [address], 03/01/2021 13:42:44 03/01/19 22 03/01/2021 CBC/C OMPLE TE BLD COUNT W/DIF F red cell distribution width 12.3 % 11.8-1 5.5 Not Available [facility] (Lab) [address] [place], [address], 03/01/2021 13:42:44 03/01/19 22 03/01/2021 CBC/C OMPLE TE BLD COUNT W/DIF F platelets 368 x10'3 /uL 150-40 0 Not Available [facility] (Lab) [address] [place], [address], 03/01/2021 13:42:44 03/01/19 22 03/01/2021 CBC/C OMPLE TE BLD COUNT W/DIF F mean platelet volume 9.8 fL 9.0-12 .4 Not Available [facility] (Lab) [address] [place], [address], 03/01/2021 13:42:44 03/01/19 22 03/01/2021 CBC/C OMPLE TE BLD COUNT W/DIF F neutrophils 54.5 % 39.0-7 2.0 Not Available [facility] (Lab) [address] [place], [address], 03/01/2021 13:42:44 03/01/19 22 03/01/2021 CBC/C OMPLE TE BLD COUNT W/DIF F lymphocytes 26.1 % 16.0-4 7.0 Not Available [facility] (Lab) [address] [place], [address], 03/01/2021 13:42:44 03/01/19 22 03/01/2021 CBC/C OMPLE TE BLD COUNT W/DIF F monocytes 15.6 % 5.0-12 .0 high Not Available [facility] (Lab) [address] [place], [address], 03/01/2021 13:42:44 03/01/19 22 03/01/2021 CBC/C OMPLE TE BLD COUNT W/DIF F eosinophils 2.5 % 1.0-7. 0 Not Available [facility] (Lab) [address] [place], [address], 03/01/2021 13:42:44 03/01/19 22 03/01/2021 CBC/C OMPLE TE BLD COUNT W/DIF F basophils 1.0 % 0.0-2. 0 Not Available [facility] (Lab) [address] [place], [address], 03/01/2021 13:42:44 03/01/19 22 03/01/2021 CBC/C OMPLE TE BLD COUNT W/DIF F immature granulocytes 0.3 % 0.00-0 .50 Not Available [facility] (Lab) [address] [place], [address], 03/01/2021 13:42:44 03/01/19 22 03/01/2021 CBC/C OMPLE TE BLD COUNT W/DIF F neutrophils, absolute count 3.63 x10'3 /uL 1.5-8. 0 Not Available [facility] (Lab) [address] [place], [address], 03/01/2021 13:42:44 03/01/19 22 03/01/2021 CBC/C OMPLE TE BLD COUNT W/DIF F lymphocytes, absolute count 1.74 x10'3 /uL 1.07-3 .43 Not Available [facility] (Lab) [address] [place], [address], 03/01/2021 13:42:44 03/01/19 22 03/01/2021 CBC/C OMPLE TE BLD COUNT W/DIF F monocytes, absolute count 1.04 x10'3 /uL 0.29-0 .99 high Not Available [facility] (Lab) [address] [place], [address], 03/01/2021 13:42:44 03/01/19 22 03/01/2021 CBC/C OMPLE TE BLD COUNT W/DIF F eosinophils, absolute count 0.17 x10'3 /uL 0.02-0 .53 Not Available [facility] (Lab) [address] [place], [address], 03/01/2021 13:42:44 03/01/19 22 03/01/2021 CBC/C OMPLE TE BLD COUNT W/DIF F NRBC# 0.00 x10'3 /uL Not Available [facility] (Lab) [address] [place], [address], 03/01/2021 13:42:44 03/01/19 22 03/01/2021 CBC/C OMPLE TE BLD COUNT W/DIF F basophils, absolute count 0.07 x10'3 /uL 0.01-0 .08 Not Available [facility] (Lab) [address] [place], [address], 03/01/2021 13:42:44 03/01/19 22 03/01/2021 CBC/C OMPLE TE BLD COUNT W/DIF F immature granulocytes ,absolute 0.02 x10'3 /uL 0.00-0 .05 Not Available [facility] (Lab) [address] [place], [address], 03/01/2021 13:42:44 03/01/19 22 03/01/2021 CBC/C OMPLE TE BLD COUNT W/DIF F nucleated red blood cells 0.0 % -0 Not Available [facility] (Lab) [address] [place], [address], 03/01/2021 13:42:44 03/01/19 22 03/01/2021 LIPID PANEL LDL cholesterol, calculated 48 mg/dL 0-130 NIH KATTY NSUS REPOR T RECOM MENDA TIONS FOR LDL: ADULT CHILD LOW RISK <130 <110 (OPTI MAL LDL) <100 ----- BORDE RLINE : 130-1 59 ----- HIGH RISK: >160 >130 A TRIGL YCERI DE RESUL T >400 INVAL IDATE S THE CALCU LATIO N FOR LDL FRACT IONAT ION - THE LDL RESUL T WILL NOT BE REPOR GRAYSON. Not Available [facility] (Lab) [address] [place], [address], 03/01/2021 19:53:55 03/01/19 22 03/01/2021 LIPID PANEL cholesterol 107 mg/dL 140-19 9 low NIH KATTY NSUS RECOM MENDA TION FOR NOAH STERO L: ADULT CHILD LOW RISK: <200 <170 BORDE RLINE : <200- 239 ----- HIGH RISK: >240 >[address] [facility] (Lab) [address] [place], [address], 03/01/2021 19:53:55 03/01/19 22 03/01/2021 LIPID PANEL triglyceride s 121 mg/dL 0-150 NIH KATTY NSUS REPOR T RECOM MENDA TION FOR TRIGL YCERI SHA: ADULT CHILD LOW RISK: <150 ----- BODER LINE: 150-1 99 ----- HIGH RISK: >200 ----- Not Available [facility] (Lab) [address] [place], [address], 03/01/2021 19:53:55 03/01/19 22 03/01/2021 LIPID PANEL HDL cholesterol 35 mg/dL 40- low Not Available [facility] (Lab) [address] [place], [address], 03/01/2021 19:53:55 03/01/19 22 03/01/2021 COMPR EHENS REHANA METAB OLIC PANEL carbon dioxide 30 mmol/ L 22-30 Not Available [facility] (Lab) [address] [place], [address], 03/01/2021 19:53:51 03/01/19 22 03/01/2021 COMPR EHENS REHANA METAB OLIC PANEL sodium 135 mmol/ L 137-14 5 low Not Available [facility] (Lab) [address] [place], [address], 03/01/2021 19:53:51 03/01/19 22 03/01/2021 COMPR EHENS REHANA METAB OLIC PANEL potassium 4.7 mmol/ L 3.5-5. 1 Not Available [facility] (Lab) [address] [place], [address], 03/01/2021 19:53:51 03/01/19 22 03/01/2021 COMPR EHENS REHANA METAB OLIC PANEL chloride 104 mmol/ L 98-107 Not Available [facility] (Lab) [address] [place], [address], 03/01/2021 19:53:51 03/01/19 22 03/01/2021 COMPR EHENS REHANA METAB OLIC PANEL agap 5.7 mmol/ L 14-22 low Not Available [facility] (Lab) [address] [place], [address], 03/01/2021 19:53:51 03/01/19 22 03/01/2021 COMPR EHENS REHANA METAB OLIC PANEL glucose 84 mg/dL 70-99 Not Available [facility] (Lab) [address] [place], [address], 03/01/2021 19:53:51 03/01/19 22 03/01/2021 COMPR EHENS REHANA METAB OLIC PANEL BUN 10 mg/dL 8-19 Not Available [facility] (Lab) [address] [place], [address], 03/01/2021 19:53:51 03/01/19 22 03/01/2021 COMPR EHENS REHANA METAB OLIC PANEL creatinine 0.80 mg/dL 0.66-1 .25 Not Available [facility] (Lab) [address] [place], [address], 03/01/2021 19:53:51 03/01/19 22 03/01/2021 COMPR EHENS REHANA METAB OLIC PANEL GFR >60 Refer ence Range : Brush ge GFR Healt hy Adult : >60 mL/mi n/1.7 3 m2 Chron ic Kidne y Disea se: 15-60 mL/mi n/1.7 3 m2 Kidne y Failu re: <15/m L/min /1.73 m2 www.n iddk. nih.g ov The MDRD study equat ion has not been valid ated in child liseth <18 years of age; pregn ant women ; the elder ly >85 years of age; or in some racia l or ethni c subgr oups, such as Hispa nics. Outsi de the valid ated graciela eters , estim ated GFR is less accur ate, requi ring clini ross judgm ent on a case- by-ca se basis . Clini ross inter preta tion for other races and ages must be made by the clini brooks. The MDRD study equat ion has not been valid ated for the evalu ation of serum creat inine relat ed to nutri piper l statu s or medic ation usage . For perso ns <18 years of age, a pedia tric GFR calcu lator is avail able on the [facility] websi te: https ://tenisha w.renee painting.o rg/pr ofess ional s/kdo qi/gf r_cal culat or Not Available [facility] (Lab) [address] [place], [address], 03/01/2021 19:53:51 03/01/19 22 03/01/2021 COMPR EHENS REHANA METAB OLIC PANEL alkaline phosphatase 73 U/L 38-126 Not Available [facility] (Lab) [address] [place], [address], 03/01/2021 19:53:51 03/01/19 22 03/01/2021 COMPR EHENS REHANA METAB OLIC PANEL alanine aminotransfe rase 28 U/L 0-50 Not Available [facility] (Lab) [address] [place], [address], 03/01/2021 19:53:51 03/01/19 22 03/01/2021 COMPR EHENS REHANA METAB OLIC PANEL aspartate aminotransfe rase 28 U/L 15-46 Not Available [facility] (Lab) [address] [place], [address], 03/01/2021 19:53:51 03/01/19 22 03/01/2021 COMPR EHENS REHANA METAB OLIC PANEL bilirubin, total 0.40 mg/dL 0.20-[address] [facility] (Lab) [address] [place], [address], 03/01/2021 19:53:51 03/01/19 22 03/01/2021 COMPR EHENS REHANA METAB OLIC PANEL calcium 9.1 mg/dL 8.4-10 .2 Not Available [facility] (Lab) [address] [facility] [place], [address], 03/01/2021 19:53:51 03/01/19 22 03/01/2021 COMPR EHENS REHANA METAB OLIC PANEL total protein 6.1 g/dL 6.3-8. 2 low Not Available [facility] (Lab) [address] [place], [address], 03/01/2021 19:53:51 03/01/19 22 03/01/2021 COMPR EHENS REHANA METAB OLIC PANEL albumin 3.7 g/dL 3.0-4. 4 Not Available [facility] (Lab) [address] [place], [address], 03/01/2021 19:53:51 03/01/19 22 03/01/2021 COMPR EHENS REHANA METAB OLIC PANEL globulin 2.4 g/dL 2.6-4. 2 low Not Available [facility] (Lab) [address] [place], [address], 03/01/2021 19:53:51 03/01/19 22 03/01/2021 COMPR EHENS RHEANA METAB OLIC PANEL A/G ratio 1.5 ratio 1.0-2. 0 Not Available [facility] (Lab) [address] [place], [address], 03/01/2021 19:53:51 09/23/19 22 09/22/2021 PSA SCREE N PSA medicare screen 0.70 NG/mL 0.00-[address] [facility] (Lab) [address] [place], [address], 09/22/2021 19:48:16 09/23/19 22 09/22/2021 CBC/C OMPLE TE BLD COUNT W/DIF F hematocrit 44.4 % 39.3-[address] [facility] (Lab) [address] [place], [address], 09/22/2021 19:29:21 09/23/19 22 09/22/2021 CBC/C OMPLE TE BLD COUNT W/DIF F white blood cells 6.7 x10'3 /uL 4.2-10 .8 Not Available [facility] (Lab) [address] [place], [address], 09/22/2021 19:29:21 09/23/19 22 09/22/2021 CBC/C OMPLE TE BLD COUNT W/DIF F red blood cells 4.71 x10'6 /uL 4.10-5 .80 Not Available [facility] (Lab) [address] [place], [address], 09/22/2021 19:29:21 09/23/19 22 09/22/2021 CBC/C OMPLE TE BLD COUNT W/DIF F hemoglobin 15.2 g/dL 13.2-1 7.0 Not Available [facility] (Lab) [address] [place], [address], 09/22/2021 19:29:21 09/23/19 22 09/22/2021 CBC/C OMPLE TE BLD COUNT W/DIF F mean red cell volume 94.3 fL 80.0-9 7.0 Not Available [facility] (Lab) [address] [place], [address], 09/22/2021 19:29:21 09/23/19 22 09/22/2021 CBC/C OMPLE TE BLD COUNT W/DIF F mean red cell hemoglobin 32.3 pg 27.0-3 3.0 Not Available [facility] (Lab) [address] [place], [address], 09/22/2021 19:29:21 09/23/19 22 09/22/2021 CBC/C OMPLE TE BLD COUNT W/DIF F mean RBC HGB concentratio n 34.2 g/dL 31.0-3 6.0 Not Available [facility] (Lab) [address] [place], [address], 09/22/2021 19:29:21 09/23/19 22 09/22/2021 CBC/C OMPLE TE BLD COUNT W/DIF F red cell distribution width 12.7 % 11.8-[address] [facility] (Lab) [address] [place], [address], 09/22/2021 19:29:21 09/23/19 22 09/22/2021 CBC/C OMPLE TE BLD COUNT W/DIF F platelets 252 x10'3 /uL 150-40 0 Not Available [facility] (Lab) [address] [place], [address], 09/22/2021 19:29:21 09/23/19 22 09/22/2021 CBC/C OMPLE TE BLD COUNT W/DIF F mean platelet volume 10.3 fL 9.0-12 .4 Not Available [facility] (Lab) [address] [place], [address], 09/22/2021 19:29:21 09/23/19 22 09/22/2021 CBC/C OMPLE TE BLD COUNT W/DIF F neutrophils 44.9 % 39.0-7 2.0 Not Available [facility] (Lab) [address] [place], [address], 09/22/2021 19:29:21 09/23/19 22 09/22/2021 CBC/C OMPLE TE BLD COUNT W/DIF F lymphocytes 32.4 % 16.0-4 7.0 Not Available [facility] (Lab) [address] [place], [address], 09/22/2021 19:29:21 09/23/19 22 09/22/2021 CBC/C OMPLE TE BLD COUNT W/DIF F monocytes 18.7 % 5.0-12 .0 high Not Available [facility] (Lab) [address] [place], [address], 09/22/2021 19:29:21 09/23/19 22 09/22/2021 CBC/C OMPLE TE BLD COUNT W/DIF F eosinophils 2.8 % 1.0-7. 0 Not Available [facility] (Lab) [address] [place], [address], 09/22/2021 19:29:21 09/23/19 22 09/22/2021 CBC/C OMPLE TE BLD COUNT W/DIF F basophils 0.9 % 0.0-2. 0 Not Available [facility] (Lab) [address] [place], [address], 09/22/2021 19:29:21 09/23/19 22 09/22/2021 CBC/C OMPLE TE BLD COUNT W/DIF F immature granulocytes 0.3 % 0.00-0 .50 Not Available [facility] (Lab) [address] [place], [address], 09/22/2021 19:29:21 09/23/19 22 09/22/2021 CBC/C OMPLE TE BLD COUNT W/DIF F neutrophils, absolute count 3.01 x10'3 /uL 1.5-8. 0 Not Available [facility] (Lab) [address] [place], [address], 09/22/2021 19:29:21 09/23/19 22 09/22/2021 CBC/C OMPLE TE BLD COUNT W/DIF F lymphocytes, absolute count 2.17 x10'3 /uL 1.07-3 .43 Not Available [facility] (Lab) [address] [place], [address], 09/22/2021 19:29:21 09/23/19 22 09/22/2021 CBC/C OMPLE TE BLD COUNT W/DIF F monocytes, absolute count 1.25 x10'3 /uL 0.29-0 .99 high Not Available [facility] (Lab) [address] [place], [address], 09/22/2021 19:29:21 09/23/19 22 09/22/2021 CBC/C OMPLE TE BLD COUNT W/DIF F eosinophils, absolute count 0.19 x10'3 /uL 0.02-0 .53 Not Available [facility] (Lab) [address] [place], [address], 09/22/2021 19:29:21 09/23/19 22 09/22/2021 CBC/C OMPLE TE BLD COUNT W/DIF F basophils, absolute count 0.06 x10'3 /uL 0.01-0 .08 Not Available [facility] (Lab) [address] [place], [address], 09/22/2021 19:29:21 09/23/19 22 09/22/2021 CBC/C OMPLE TE BLD COUNT W/DIF F immature granulocytes ,absolute 0.02 x10'3 /uL 0.00-0 .05 Not Available [facility] (Lab) [address] [place], [address], 09/22/2021 19:29:21 09/23/19 22 09/22/2021 CBC/C OMPLE TE BLD COUNT W/DIF F nucleated red blood cells 0.0 % -0 Not Available [facility] (Lab) [address] [place], [address], 09/22/2021 19:29:21 09/23/19 22 09/22/2021 CBC/C OMPLE TE BLD COUNT W/DIF F NRBC# 0.00 x10'3 /uL Not Available [facility] (Lab) [address] [place], [address], 09/22/2021 19:29:21 09/23/19 22 09/22/2021 LIPID PANEL cholesterol 96 mg/dL 140-19 9 low NIH KATTY NSUS RECOM MENDA TION FOR NOAH STERO L: ADULT CHILD LOW RISK: <200 <170 BORDE RLINE : <200- 239 ----- HIGH RISK: >240 >200 Not Available [facility] (Lab) [address] [place], [address], 09/22/2021 19:15:22 09/23/19 22 09/22/2021 LIPID PANEL triglyceride s 104 mg/dL 0-150 NIH KATTY NSUS REPOR T RECOM MENDA TION FOR TRIGL YCERI SHA: ADULT CHILD LOW RISK: <150 ----- BODER LINE: 150-1 99 ----- HIGH RISK: >200 ----- Not Available [facility] (Lab) [address] [place], [address], 09/22/2021 19:15:22 09/23/19 22 09/22/2021 LIPID PANEL HDL cholesterol 34 mg/dL 40- low Not Available [facility] (Lab) [address] [place], [address], 09/22/2021 19:15:22 09/23/19 22 09/22/2021 LIPID PANEL LDL cholesterol, calculated 41 mg/dL 0-130 NIH KATTY NSUS REPOR T RECOM MENDA TIONS FOR LDL: ADULT CHILD LOW RISK <130 <110 (OPTI MAL LDL) <100 ----- SMOOTHDE RLINE : 130-1 59 ----- HIGH RISK: >160 >130 A TRIGL YCERI DE RESUL T >400 INVAL IDATE S THE CALCU LATIO N FOR LDL FRACT IONAT ION - THE LDL RESUL T WILL NOT BE REPOR RGAYSON. Not Available [facility] (Lab) [address] [place], [address], 09/22/2021 19:15:22 09/23/19 22 09/22/2021 COMPR EHENS REHANA METAB OLIC PANEL carbon dioxide 25 mmol/ L 22-[address] [facility] (Lab) [address] [place], [address], 09/22/2021 19:15:20 09/23/19 22 09/22/2021 COMPR EHENS REHANA METAB OLIC PANEL sodium 138 mmol/ L 137-[address] [facility] (Lab) [address] [place], [address], 09/22/2021 19:15:20 09/23/19 22 09/22/2021 COMPR EHENS REHANA METAB OLIC PANEL potassium 4.3 mmol/ L 3.5-5. 1 Not Available [facility] (Lab) [address] [place], [address], 09/22/2021 19:15:20 09/23/19 22 09/22/2021 COMPR EHENS REHANA METAB OLIC PANEL chloride 104 mmol/ L 98-[address] [facility] (Lab) [address] [place], [address], 09/22/2021 19:15:20 09/23/19 22 09/22/2021 COMPR EHENS REHANA METAB OLIC PANEL anion gap 13.3 mmol/ L 14-22 low Not Available [facility] (Lab) [address] [place], [address], 09/22/2021 19:15:20 09/23/19 22 09/22/2021 COMPR EHENS REHANA METAB OLIC PANEL glucose 72 mg/dL 70-99 Not Available [facility] (Lab) [address] [place], [address], 09/22/2021 19:15:20 09/23/19 22 09/22/2021 COMPR EHENS REHANA METAB OLIC PANEL BUN 11 mg/dL 8-19 Not Available [facility] (Lab) [address] [place], [address], 09/22/2021 19:15:20 09/23/19 22 09/22/2021 COMPR EHENS REHANA METAB OLIC PANEL creatinine 0.83 mg/dL 0.66-1 .25 Not Available [facility] (Lab) [address] [place], [address], 09/22/2021 19:15:20 09/23/19 22 09/22/2021 COMPR EHENS REHANA METAB OLIC PANEL GFR >60 Refer ence Range : Brush ge GFR Healt hy Adult : >60 mL/mi n/1.7 3 m2 Chron ic Kidne y Disea se: 15-60 mL/mi n/1.7 3 m2 Kidne y Failu re: <15/m L/min /1.73 m2 www.n iddk. nih.g ov The MDRD study equat ion has not been valid ated in child liseth <18 years of age; pregn ant women ; the elder ly >85 years of age; or in some racia l or ethni c subgr oups, such as Hismd nics. Outsi de the valid ated graciela eters , estim ated GFR is less accur ate, requi ring clini ross judgm ent on a case- by-ca se basis . Clini ross inter preta tion for other races and ages must be made by the clini brooks. The MDRD study equat ion has not been valid ated for the evalu ation of serum creat inine relat ed to nutri piper l statu s or medic ation usage . For perso ns <18 years of age, a pedia tric GFR calcu lator is avail able on the [employer] websi te: https ://tenisha menard.renee painting.o cheko/pr nikkoess ional s/kdo qi/gf r_cal culat or Not Available [facility] (Lab) [address] [place], [address], 09/22/2021 19:15:20 09/23/19 22 09/22/2021 COMPR EHENS REHANA METAB OLIC PANEL alkaline phosphatase 59 U/L 38-126 Not Available [facility] (Lab) [address] [place], [address], 09/22/2021 19:15:20 09/23/19 22 09/22/2021 COMPR EHENS REHANA METAB OLIC PANEL alanine aminotransfe rase 19 U/L 0-50 Not Available [facility] (Lab) [address] [place], [address], 09/22/2021 19:15:20 09/23/19 22 09/22/2021 COMPR EHENS REHANA METAB OLIC PANEL aspartate aminotransfe rase 22 U/L 15-46 Not Available [facility] (Lab) [address] [place], [address], 09/22/2021 19:15:20 09/23/19 22 09/22/2021 COMPR EHENS REHANA METAB OLIC PANEL bilirubin, total 0.50 mg/dL 0.20-1 .30 Not Available [facility] (Lab) [address] [place], [address], 09/22/2021 19:15:20 09/23/19 22 09/22/2021 COMPR EHENS REHANA METAB OLIC PANEL calcium 9.4 mg/dL 8.4-10 .2 Not Available [facility] (Lab) [address] [place], [address], 09/22/2021 19:15:20 09/23/19 22 09/22/2021 COMPR EHENS REHANA METAB OLIC PANEL total protein 6.4 g/dL 6.3-8. 2 Not Available [facility] (Lab) [address] [place], [address], 09/22/2021 19:15:20 09/23/19 22 09/22/2021 COMPR EHENS REHANA METAB OLIC PANEL albumin 4.1 g/dL 3.0-4. 4 Not Available [facility] (Lab) [address] [place], [address], 09/22/2021 19:15:20 09/23/19 22 09/22/2021 COMPR EHENS REHANA METAB OLIC PANEL globulin 2.3 g/dL 2.6-4. 2 low Not Available [facility] (Lab) [address] [place], [address], 09/22/2021 19:15:20 09/23/19 22 09/22/2021 COMPR EHENS REHANA METAB OLIC PANEL A/G ratio 1.8 ratio 1.0-2. 0 Not Available [facility] (Lab) [address] [place], [address], 09/22/2021 19:15:20 09/20/19 23 09/19/2022 CBC/C OMPLE TE BLD COUNT W/DIF F white blood cells 8.2 x10'3 /uL 4.2-10 .8 Not Available [facility] (Lab) [address] [place], [address], 09/19/2022 13:02:44 09/20/19 23 09/19/2022 CBC/C OMPLE TE BLD COUNT W/DIF F red blood cells 5.17 x10'6 /uL 4.10-5 .80 Not Available [facility] (Lab) [address] [place], [address], 09/19/2022 13:02:44 09/20/19 23 09/19/2022 CBC/C OMPLE TE BLD COUNT W/DIF F hemoglobin 16.1 g/dL 13.2-[address] [facility] (Lab) [address] [place], [address], 09/19/2022 13:02:44 09/20/19 23 09/19/2022 CBC/C OMPLE TE BLD COUNT W/DIF F hematocrit 48.0 % 39.3-[address] [facility] (Lab) [address] [place], [address], 09/19/2022 13:02:44 09/20/19 23 09/19/2022 CBC/C OMPLE TE BLD COUNT W/DIF F mean red cell volume 92.8 fL 80.0-9 7.0 Not Available [facility] (Lab) [address] [place], [address], 09/19/2022 13:02:44 09/20/19 23 09/19/2022 CBC/C OMPLE TE BLD COUNT W/DIF F mean red cell hemoglobin 31.1 pg 27.0-3 3.0 Not Available [facility] (Lab) [address] [place], [address], 09/19/2022 13:02:44 09/20/19 23 09/19/2022 CBC/C OMPLE TE BLD COUNT W/DIF F mean RBC HGB concentratio n 33.5 g/dL 31.0-[address] [facility] (Lab) [address] [place], [address], 09/19/2022 13:02:44 09/20/19 23 09/19/2022 CBC/C OMPLE TE BLD COUNT W/DIF F red cell distribution width 12.8 % 11.8-1 5.5 Not Available [facility] (Lab) [address] [place], [address], 09/19/2022 13:02:44 09/20/19 23 09/19/2022 CBC/C OMPLE TE BLD COUNT W/DIF F platelets 263 x10'3 /uL 150-[address] [facility] (Lab) [address] [place], [address], 09/19/2022 13:02:44 09/20/19 23 09/19/2022 CBC/C OMPLE TE BLD COUNT W/DIF F mean platelet volume 10.0 fL 9.0-[address] [facility] (Lab) [address] [place], [address], 09/19/2022 13:02:44 09/20/19 23 09/19/2022 CBC/C OMPLE TE BLD COUNT W/DIF F neutrophils 47.0 % 39.0-7 2.0 Not Available [facility] (Lab) [address] [place], [address], 09/19/2022 13:02:44 09/20/19 23 09/19/2022 CBC/C OMPLE TE BLD COUNT W/DIF F lymphocytes 28.6 % 16.0-[address] [facility] (Lab) [address] [place], [address], 09/19/2022 13:02:44 09/20/19 23 09/19/2022 CBC/C OMPLE TE BLD COUNT W/DIF F monocytes 19.9 % 5.0-12 [address] [facility] (Lab) [address] [place], [address], 09/19/2022 13:02:44 09/20/19 23 09/19/2022 CBC/C OMPLE TE BLD COUNT W/DIF F eosinophils 3.1 % 1.0-7. 0 Not Available [facility] (Lab) [address] [place], [address], 09/19/2022 13:02:44 09/20/19 23 09/19/2022 CBC/C OMPLE TE BLD COUNT W/DIF F basophils 1.0 % 0.0-2. 0 Not Available [facility] (Lab) [address] [place], [address], 09/19/2022 13:02:44 09/20/19 23 09/19/2022 CBC/C OMPLE TE BLD COUNT W/DIF F immature granulocytes 0.4 % 0.00-[address] [facility] (Lab) [address] [facility] [place], [address], 09/19/2022 13:02:44 09/20/19 23 09/19/2022 CBC/C OMPLE TE BLD COUNT W/DIF F neutrophils, absolute count 3.85 x10'3 /uL 1.5-8. 0 Not Available [facility] (Lab) [address] [place], [address], 09/19/2022 13:02:44 09/20/19 23 09/19/2022 CBC/C OMPLE TE BLD COUNT W/DIF F lymphocytes, absolute count 2.34 x10'3 /uL 1.07-3 .43 Not Available [facility] (Lab) [address] [place], [address], 09/19/2022 13:02:44 09/20/19 23 09/19/2022 CBC/C OMPLE TE BLD COUNT W/DIF F monocytes, absolute count 1.63 x10'3 /uL 0.29-0 .99 high Not Available [facility] (Lab) [address] [place], [address], 09/19/2022 13:02:44 09/20/19 23 09/19/2022 CBC/C OMPLE TE BLD COUNT W/DIF F eosinophils, absolute count 0.25 x10'3 /uL 0.02-0 .53 Not Available [facility] (Lab) [address] [place], [address], 09/19/2022 13:02:44 09/20/19 23 09/19/2022 CBC/C OMPLE TE BLD COUNT W/DIF F basophils, absolute count 0.08 x10'3 /uL 0.01-0 .08 Not Available [facility] (Lab) [address] [place], [address], 09/19/2022 13:02:44 09/20/19 23 09/19/2022 CBC/C OMPLE TE BLD COUNT W/DIF F immature granulocytes ,absolute 0.03 x10'3 /uL 0.00-0 .05 Not Available [facility] (Lab) [address] [place], [address], 09/19/2022 13:02:44 09/20/19 23 09/19/2022 CBC/C OMPLE TE BLD COUNT W/DIF F nucleated red blood cells 0.0 % -0 Not Available [facility] (Lab) [address] [place], [address], 09/19/2022 13:02:44 09/20/19 23 09/19/2022 CBC/C OMPLE TE BLD COUNT W/DIF F NRBC# 0.00 x10'3 /uL Not Available [facility] (Lab) [address] [place], [address], 09/19/2022 13:02:44 09/20/19 23 09/19/2022 COMPR EHENS REHANA METAB OLIC PANEL sodium 139 mmol/ L 137-14 5 Not Available [facility] (Lab) [address] [place], [address], 09/19/2022 13:51:52 09/20/19 23 09/19/2022 COMPR EHENS REHANA METAB OLIC PANEL potassium 4.6 mmol/ L 3.5-5. 1 Not Available [facility] (Lab) [address] [place], [address], 09/19/2022 13:51:52 09/20/19 23 09/19/2022 COMPR EHENS REHANA METAB OLIC PANEL chloride 102 mmol/ L 98-107 Not Available [facility] (Lab) [address] [place], [address], 09/19/2022 13:51:52 09/20/19 23 09/19/2022 COMPR EHENS REHANA METAB OLIC PANEL carbon dioxide 29 mmol/ L 22-30 Not Available [facility] (Lab) [address] [place], [address], 09/19/2022 13:51:52 09/20/19 23 09/19/2022 COMPR EHENS REHANA METAB OLIC PANEL anion gap 12.6 mmol/ L 14-22 low Not Available [facility] (Lab) [address] [place], [address], 09/19/2022 13:51:52 09/20/19 23 09/19/2022 COMPR EHENS REHANA METAB OLIC PANEL glucose 88 mg/dL 70-99 Not Available [facility] (Lab) [address] [place], [address], 09/19/2022 13:51:52 09/20/19 23 09/19/2022 COMPR EHENS REHANA METAB OLIC PANEL BUN 12 mg/dL 8-19 Not Available [facility] (Lab) [address] [place], [address], 09/19/2022 13:51:52 09/20/19 23 09/19/2022 COMPR EHENS REHANA METAB OLIC PANEL creatinine 0.78 mg/dL 0.66-1 .25 Not Available [facility] (Lab) [address] [place], [address], 09/19/2022 13:51:52 09/20/19 23 09/19/2022 COMPR EHENS REHANA METAB OLIC PANEL GFR >60 Refer ence Range : Brush ge GFR Healt hy Adult : >60 mL/mi n/1.7 3 m2 Chron ic Kidne y Disea se: 15-60 mL/mi n/1.7 3 m2 Kidne y Failu re: <15/m L/min /1.73 m2 www.n iddk. nih.g ov The MDRD study equat ion has not been valid ated in child liseth <18 years of age; pregn ant women ; the elder ly >85 years of age; or in some racia l or ethni c subgr oups, such as Hispa nics. Outsi de the valid ated graciela eters , estim ated GFR is less accur ate, requi ring clini ross judgm ent on a case- by-ca se basis . Clini ross inter preta tion for other races and ages must be made by the clini brooks. The MDRD study equat ion has not been valid ated for the evalu ation of serum creat inine relat ed to nutri piper l statu s or medic ation usage . For perso ns <18 years of age, a pedia tric GFR calcu lator is avail able on the [facility] websi te: https ://tenisha painting.gris still/otilio eless ional s/kdo qi/gf r_cal culat or Not Available [facility] (Lab) [address] [place], [address], 09/19/2022 13:51:52 09/20/1909/19/2022 COMPR EHENS REHANA METAB OLIC PANEL alkaline phosphatase 78 U/L 38-126 Not Available [facility] (Lab) [address] [place], [address], 09/19/2022 13:51:52 09/20/1909/19/2022 COMPR EHENS REHANA METAB OLIC PANEL alanine aminotransfe rase 27 U/L 0-50 Not Available [facility] (Lab) [address] [place], [address], 09/19/2022 13:51:52 09/20/19 23 09/19/2022 COMPR EHENS REHANA METAB OLIC PANEL aspartate aminotransfe rase 31 U/L 15-46 Not Available [facility] (Lab) [address] [place], [address], 09/19/2022 13:51:52 09/20/19 23 09/19/2022 COMPR EHENS REHANA METAB OLIC PANEL bilirubin, total 0.90 mg/dL 0.20-1 .30 Not Available [facility] (Lab) [address] [place], [address], 09/19/2022 13:51:52 09/20/19 23 09/19/2022 COMPR EHENS REHANA METAB OLIC PANEL calcium 9.4 mg/dL 8.4-10 .2 Not Available [facility] (Lab) [address] [place], [address], 09/19/2022 13:51:52 09/20/19 23 09/19/2022 COMPR EHENS REHANA METAB OLIC PANEL total protein 7.1 g/dL 6.3-8. 2 Not Available [facility] (Lab) [address] [place], [address], 09/19/2022 13:51:52 09/20/19 23 09/19/2022 COMPR EHENS REHANA METAB OLIC PANEL albumin 4.4 g/dL 3.0-4. 4 Not Available [facility] (Lab) [address] [place], [address], 09/19/2022 13:51:52 09/20/19 23 09/19/2022 COMPR EHENS REHANA METAB OLIC PANEL globulin 2.7 g/dL 2.6-4. 2 Not Available [facility] (Lab) [address] [place], [address], 09/19/2022 13:51:52 09/20/19 09/19/2022 COMPR EHENS REHANA METAB OLIC PANEL A/G ratio 1.6 ratio 1.0-2. [address] [facility] (Lab) [address] [place], [address], 09/19/2022 13:51:52 09/20/19 23 09/19/2022 LIPID PANEL cholesterol 111 mg/dL 140-19 9 low NIH KATTY NSUS RECOM MENDA TION FOR ONAH STERO L: ADULT CHILD LOW RISK: <200 <170 BORDE RLINE : <200- 239 ----- HIGH RISK: >240 >200 Not Available [facility] (Lab) [address] [place], [address], 09/19/2022 13:51:56 09/20/19 23 09/19/2022 LIPID PANEL triglyceride s 132 mg/dL 0-150 NIH KATTY NSUS REPOR T RECOM MENDA TION FOR TRIGL YCERI SHA: ADULT CHILD LOW RISK: <150 ----- BODER LINE: 150-1 99 ----- HIGH RISK: >200 ----- Not Available [facility] (Lab) [address] [place], [address], 09/19/2022 13:51:56 09/20/19 23 09/19/2022 LIPID PANEL HDL cholesterol 34 mg/dL 40- low Not Available [facility] (Lab) [address] [place], [address], 09/19/2022 13:51:56 09/20/19 23 09/19/2022 LIPID PANEL LDL cholesterol, calculated 51 mg/dL 0-130 NIH KATTY NSUS REPOR T RECOM MENDA TIONS FOR LDL: ADULT CHILD LOW RISK <130 <110 (OPTI MAL LDL) <100 ----- BORDE RLINE : 130-1 59 ----- HIGH RISK: >160 >130 A TRIGL YCERI DE RESUL T >400 INVAL IDATE S THE CALCU LATIO N FOR LDL FRACT IONAT ION - THE LDL RESUL T WILL NOT BE REPOR GRAYSON. Not Available [facility] (Lab) [address] [place], [address], 09/19/2022 13:51:56 09/20/19 23 XR, cervi ross spine , 4 or 5 view [facility] [address] [place] [address] Patien t Name: JOSE CRUZ MUÑIZ ion #: [id number] Sex: M : 1950 6 Dictat ed By: J Luis West Attend ing Physic levi: TATE DORSEY Orderi ng Physic levi: TATE DORSEY Exam Date: 2022 10:21 AM Exam Name: XR C SPINE 4-5V Admitt ing Diagno sis(es ): Compar maycol: None Clinic al histor y: Pain Findin gs: There are endpla te osteop hytes noted, along the verteb ral bodies consis tent with degene rative joint diseas e. No acute fractu re seen. If there is concer n, consid er MRI No focal osseou s lesion s are demons trated . No soft tissue mass Impres candelario: 1. Multil evel degene rative change s Electr onical ly Signed by: J Luis West at 2022 11:06: 52 AM Page 1 [email or web address] [facility] (Imaging) [address] [place], [address], 02/17/2023 18:49:42 03/24/19 24 03/24/2023 CT, abdom en + pelvi s, w/o contr ast No observ ation record ed. [address], [address], 04/03/2023 13:06:35 03/25/19 24 03/25/2023 MRI, abdom en + pelvi s, w/ contr ast No observ ation record ed. [address], [address], 04/03/2023 13:11:13 03/26/19 24 03/26/2023 imagi ng/di agnos tic resul t No observ ation record ed. [email or web address] [place], [place] [id number] [address], [place], [address], 04/03/2023 13:13:14 04/23/19 24 04/23/2023 XR, chola ngiog john No observ ation record ed. [email or web address] [place] [address] [address] [facility] [address], [place], [address], 08/02/2023 10:15:38 11/13/19 LDCT, chest , for lung cance r douglase [facility] [address] [address] Patien t Name: JOSE CRUZ MUÑIZ ion #: [id number] Sex: M : 1950 9 Dictat ed By: Umm Stevenson Attend ing Physic levi: TATE DORSEY Orderi Physic levi: TATE DORSEY Exam Date: 2023 10:30 AM Exam Name: CT LOW DOSE CANCER SCREEN ING Admitt ing Diagno sis(es ): CT Chest withou t intrav enous contra st INDICA TION: nicoti ne depend ence TECHNI QUE: Multid etecto r spiral CT of the chest was perfor med from the lung apices to the upper abdome n. Axial, saucedo l and sagitt al multip lanar reform ats were perfor med. Radiat ion Dose : 1. Chest: CTDI volume is 2.4 mGy. Dose-l ength produc t is 91.2 mGy*cm The dose indica tors for CT are the volume Comput ed Tomogr aphy (CT) Dose Index (CTDIv ol) and the Dose Length Produc t (DLP), and are measur ed in units of mGy and mGy-cm , respec tively . These indica tors are not patien t dose, but values genera grayson from the CT scanne r acquis ition factor s. The report includ es radiat ion exposu re data for exposu res receiv ed during this examin ation. Compar maycol: None Findin gs: Lower neck: Normal thyroi d. Lungs: Mild to modera te centri lobula r emphys ministerio. No focal consol idatio n. Calcif ied granul omas in the left lower lobe. 0.4 cm nodule in the right lower lobe ( image 175/30 2). Right middle lobe scarri ng. Heart/ Vascul ar Struct ures: Normal heart size. No perica rdial effusi on. Lymph Nodes: No adenop athy Page 1 [facility] [place] [address] [place], [place] [id number] [phone] Patien t Name: JOSE CRUZ MUÑIZ Access ion #: [id number] Sex: M : 1950 9 Dictat ed By: Umm Stevenson Attend ing Physic levi: JABARI BROWN Orderi Physic levi: TATE DORSEY Exam Date: 2023 10:30 AM Exam Name: CT LOW DOSE CANCER SCREEN ING Admitt ing Diagno sis(es ): Pleura : No pleura l effusi on or signif icant pneumo thorax . Muscul oskele jesse: No acute osseou s abnorm ality. Soft tissue s: Normal . Upper abdome n: Limite d portio ns of the upper abdome n are unrema rkable . IMPRES CANDELARIO: 0.4 cm nodule in the right lower lobe ( image 175/30 2). LUNG RADS Catego ry 2: Contin ue annual screen ing with LDCT Radiat ion optimi zation : All CT scans at this facili ty use at least one of these dose optimi zation techni ques: automa grayson exposu re contro l mA and/or kV adjust ment per patien t size (inclu sha target ed exams where dose is matche d to clinic al indica tion) or iterat rehana recons tructi on. Electr onical ly Signed by: Umm Stevenson at 2023 14:44: 49 PM Page 2 [email or web address] [facility] (Imaging) [address] [place], [address], 11/14/2023 15:02:06 Result Notes None recorded. 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 Procedures Surgical History Date Name Laterality Status Provider Name and Address Organization Details Recorded Time 04/29/19 screening for malignant neoplasm of colon completed Not Available [facility] 04/12/2022 06:11:09 10/25/19 08 Colonoscopy completed Not Available [facility] 04/13/19 23 06:11:09 Imaging Results Imaging Date Name Status LastModified by Organization Details LastModified Time 09/19/2022 XR, cervical spine, 4 or [address] (Imaging) [address] [place], [address], 02/17/2023 18:49:42 03/24/2023 CT, abdomen + pelvis, w/o contrast completed [address], [address], 04/03/2023 13:06:35 03/25/2023 MRI, abdomen + pelvis, w/ contrast completed [address], [address], 04/03/2023 13:11:13 03/26/2023 imaging/diagnosti c result completed [email or web address] [facility] [address], [place], [address], 04/03/2023 13:13:14 04/23/2023 XR, cholangiogram completed [email or web address] [facility] [address] [facility] [address], [place], [address], 08/02/2023 10:15:38 11/13/2023 LDCT, chest, for lung cancer screening completed [email or web address] [facility] (Imaging) [address] [place], [address], 11/14/2023 15:02:06 Procedure Notes None recorded. Medical Equipment None Reported. Allergies No known drug allergies Medications Name Sig Start Date Stop Date Status Note LastModified by Organization Details LastModified Time carvedilo l 25 mg tablet TAKE ONE HALF TABLET BY MOUTH TWO TIMES A DAY 05/28 completed Not Available Not Available Not Available carvedilo l 12.5 mg tablet TAKE 1 TABLET TWICE A DAY 2022 active Not Available Not Available Not Avai lable aspirin 325 mg tablet Take 0.5 tablets every day by oral route. 2020 active Not Available Not Available Not Avai lable clopidogr el 75 mg tablet TAKE 1 TABLET DAILY 2022 active Not Available Not Available Not Avai lable simvastat in 80 mg tablet TAKE 1 TABLET DAILY 2022 active Not Available Not Available Not Avai lable aspirin 81 mg tablet,de layed release Take 1 tablet every day by oral route. 03/09 completed Not Available Not Available Not Available lorazepam 0.5 mg tablet Take 1 tablet twice a day by oral route as needed. active Not Available Not Available No t Available pantopraz ole 40 mg tablet,de layed release TAKE 1 TABLET DAILY 2022 active Not Available Not Available Not Avai lable fluoxetin e 10 mg capsule Take 1 capsule every day by oral route. 01/02 completed Not Available Not Available Not Available omeprazol e 20 mg capsule,d elayed release 01/02 completed Not Available Not Available Not Available albuterol sulfate HFA 90 mcg/actua tion aerosol inhaler 2022 active Not Available Not Available Not Avai lable ramipril 10 mg capsule TAKE 1 CAPSULE DAILY 2022 active Not Available Not Available Not Avai lable ezetimibe 10 mg tablet TAKE 1 TABLET DAILY 2022 active Not Available Not Available Not Avai lable ezetimibe 10 mg-simvas tatin 20 mg tablet Take 1 tablet every day by oral route. 10/04 completed wrong dose Not Available Not Available Not Available ezetimibe 10 mg-simvas tatin 80 mg tablet TAKE ONE TABLET BY MOUTH DAILY 09/08 completed Not Available Not Available Not Available Bystolic 10 mg tablet TAKE ONE TABLET BY MOUTH EVERY DAY 03/11 completed changed to coreg Not Available Not Available Not Available Bystolic 5 mg tablet Take 2 tablets every day by oral route. 05/30 completed Not Available Not Available Not Available Chantix Continuin g Month Box 1 mg tablet USE DIRECTED 05/08 completed Not Available Not Available Not Available Chantix Starting Month Box 0.5 mg (11)-1 mg (42) tablets in dose pack Take 1 startr pk by oral route as directed . active Not Available Not Available No t Available Vitals Date Recorded Body mass index (BMI) Body height Pain severity - 0-10 verbal numeric rating [Score] - Reported Heart rate Body temperature Body weight Systolic blood pressure Diastolic blood pressure Provider Name and Address Organization Details Last Updated DateTime 1 30.1 kg/m2 172.72 cm 2 66 /min 97.8 [degF] 89900.2 9 g 142 mm[Hg] 84 mm[Hg] Not Available [facility] 3 06:13:39 Date Recorded Body mass index (BMI) Body height Heart rate Body temperature Body weight Systolic blood pressure Diastolic blood pressure Provider Name and Address Organization Details Last Updated DateTime 2 28.6 kg/m2 172.72 cm 78 /min 97.6 [degF] 49491.3 7 g 130 mm[Hg] 74 mm[Hg] Not Available [facility] 3 06:13:39 Date Recorded Body mass index (BMI) Body height Heart rate Body temperature Body weight Systolic blood pressure Diastolic blood pressure Provider Name and Address Organization Details Last Updated DateTime 2 30.3 kg/m2 172.72 cm 72 /min 97.6 [degF] 79532.8 8 g 126 mm[Hg] 82 mm[Hg] Not Available [facility] 3 06:13:39 Date Recorded Body mass index (BMI) Body height Pain severity - 0-10 verbal numeric rating [Score] - Reported Heart rate Body temperature Body weight Systolic blood pressure Diastolic blood pressure Provider Name and Address Organization Details Last Updated DateTime 3 29.5 kg/m2 172.72 cm 0 96 /min 98.1 [degF] 84306.9 2 g 130 mm[Hg] 82 mm[Hg] Not Available [facility] 06:13:39 Date Recorded Body height Body mass index (BMI) Body weight Body temperature Heart rate Oxygen saturation Oxygen saturation in Arterial blood by Pulse oximetry Systolic blood pressure Diastolic blood pressure Provider Name and Address Organization Details Last Updated DateTime 3 172.72 cm 30.1 kg/m2 99701.2 9 g 97.6 [degF] 66 /min 96 % 96 % 148 mm[Hg] 84 mm[Hg] Jael Patel [place] [facility] 3 10:51:27 Social History Question Answer Notes LastModified by Organization Details LastModified Time Tobacco Smoking Status Current Every Day Smoker quit 01/2021, re-starte d Not Available [facility] 04/12/2022 06:10:07 Do You Have An Advance Directive? No Papers Given MIGRATION.030 [id number] Information not available 04/12/2022 What Is Your Level Of Alcohol Consumption? Occasional MIGRATION.030 415162 Information not available 04/12/2022 Do You Wear A Helmet When Biking? No Does Not Bike MIGRATION.030 608752 Information not available 04/12/2022 Are You Blind Or Do You Have Difficulty Seeing? No MIGRATION.030 566150 Information not available 04/12/2022 What Is Your Level Of Caffeine Consumption? Heavy MIGRATION.030 975505 Information not available 04/12/2022 In The 14 Days Before Symptom Onset, Have You Had Close Contact With A Laboratory-confi rmed COVID-19 While That Case Was Ill? No MIGRATION.0301 [id number] Information not available 04/12/2022 In The 14 Days Before Symptom Onset, Have You Had Close Contact With A Person Who Is Under Investigation For COVID-19 While That Person Was Ill? No MIGRATION.0301 [id number] Information not available 04/12/2022 Are You Deaf Or Do You Have Serious Difficulty Hearing? No MIGRATION.0301 270886 Information not available 04/12/2022 What Type Of Diet Are You Following? REGULAR MIGRATION.0301 932783 Information not available 04/12/2022 What Is The Highest Grade Or Level Of School You Have Completed Or The Highest Degree You Have Received? UC02942-3 MIGRATION.0301 536153 Information not available 04/12/2022 What Is Your Occupation? RETIRED MIGRATION.0301 491177 Information not available 04/12/2022 Have There Been Any Changes To Your Family Or Social Situation? No MIGRATION.0301 472017 Information not available 04/12/2022 What Is The Fluoride Status Of Your Home? Unknown MIGRATION.0301 510074 Information not available 04/12/2022 Are There Any Guns Present In Your Home? Yes MIGRATION.0301 869937 Information not available 04/12/2022 Do You Use Insect Repellent Routinely? No MIGRATION.0301 137308 Information not available 04/12/2022 Where Do You Live? [facility] MIGRATION.0301 169214 Information not available 04/12/2022 Do You Have A Medical Power Of Human Resources Specialist? No MIGRATION.0301 302027 Information not available 04/12/2022 What Was The Date Of Your Most Recent Tobacco Screening? 09/19/2022 [email or web address] Information not available 09/19/2022 What Is Your Current Pack Years? 30ormorepackyears MIGRATION.0301 020662 Information not available 04/12/2022 Have You Ever Been Counseled For Unhealthy Alcohol Use? No MIGRATION.0301 504137 Information not available 04/12/2022 Do You Have Any Pets? Yes MIGRATION.0301 [id number] Information not available 04/12/2022 What Is Your Relationship Status? MIGRATION.0301 231063 Information not available 04/12/2022 Do You Use Your Seat Belt Or Car Seat Routinely? Yes MIGRATION.0301 467393 Information not available 04/12/2022 Do You Have Smoke And Carbon Monoxide Detectors In Your Home? Yes MIGRATION.0301 939451 Information not available 04/12/2022 At What Age Did You Start Smoking Tobacco? 25 MIGRATION.0301 937817 Information not available 04/12/2022 Are You Passively Exposed To Smoke? No MIGRATION.0301 750897 Information not available 04/12/2022 Are There Any Smokers In Your House? Yes Pt Smokes MIGRATION.030 070844 Information not available 04/12/2022 How Much Tobacco Do You Smoke? 1 PPD MIGRATION.030 027210 Information not available 04/12/2022 What Types Of Sporting Activities Do You Participate In? None MIGRATION.0301 641195 Information not available 04/12/2022 Do You Feel Stressed (tense, Restless, Nervous, Or Anxious, Or Unable To Sleep At Night)? BC5553-6 MIGRATION.030 838418 Information not available 04/12/2022 Do You Use Any Illicit Or Recreational Drugs? No MIGRATION.0301 817090 Information not available 04/12/2022 Do You Use Sunscreen Routinely? No MIGRATION.0301 520419 Information not available 04/12/2022 Have You Recently Traveled Abroad? No MIGRATION.0301 304253 Information not available 04/12/2022 Do You Have Any Dietary Restrictions? No MIGRATION.0301 503408 Information not available 04/12/2022 Do You Or Have You Ever Used Any Other Forms Of Tobacco Or Nicotine? No MIGRATION.0301 426860 Information not available 04/12/2022 How Many Days In The Past Year Have You Consumed 5 Or More Drinks? 0 MIGRATION.0301 280798 Information not available 04/12/2022 Sex: Male Functional Status Question Answer Note LastModified by Organizat ion Details LastModified Time Do you have difficulty walking or climbing stairs? No MIGRATION.434892 7545 Information not available 04/12/2022 Do you have transportation difficulties? No MIGRATION.312619 1632 Information not available 04/12/2022 Are you able to walk? YESWOREST MIGRATION.018210 5346 Information not available 04/12/2022 Do you have difficulty doing errands alone? No MIGRATION.936961 4755 Information not available 04/12/2022 Are you able to care for yourself? Yes MIGRATION.772085 9270 Information not available 04/12/2022 Do you have difficulty dressing or bathing? No MIGRATION.542931 2542 Information not available 04/12/2022 What is your exercise level? Heavy very active MIGRATION.522529 9418 Information not available 04/12/2022 Mental Status Question Answer Note LastModified by Organizat ion Details LastModified Time Do you have difficulty concentrating, remembering or making decisions? No MIGRATION.[id number] 6 Information not available 04/12/2022 Family History Relationship Description Onset Age of this Age Resolved Age Notes LastModified by Organization Details LastModified Time Mother Hypertensive disorder MIGRATION.659 [id number] Not available 04/12/2022 06:11:11 Father General health good MIGRATION.238 [id number] Not available 04/12/2022 06:11:11 Medical History Condition Response BLINDNESS N NERVE DISEASE N RHEUMATIC FEVER N BLADDER PROBLEMS N KIDNEY STONES N MRSA N OTHER # 1 N POLIO N LUNG DISEASE/DISORDER N HISTORY OF DRUG ABUSE N RADIATION / CHEMOTHERAPY N COPD N Other # 2 N BLOOD DISEASES N EAR OR HEARING PROBLEMS N MUMPS N SHINGLES N DEPRESSION (INCLUDING POST ) N BOWEL PROBLEMS N STROKE/TIA N ULCERS N BENIGN PROSTATIC HYPERPLASIA N MEASLES N HYPOTENSION N MYOCARDIAL INFARCTION N OBESITY N GERD/NAUSEA N ANEURYSM N URINARY/BLADDER/KIDNEY PROBLEMS N CORONARY ARTERY DISEASE (CAD) Y ADDICTION CONCERNS N ENDOMETRIOSIS N Impotence N USE OF BLOOD THINNERS N SKIN PROBLEMS N GASTROINTESTINAL DISORDER N PERIPHERAL VASCULAR DISEASE N MUSCLE,JOINT OR BONE PROBLEMS N GASTROINTESTINAL BLEEDING N BLOOD CLOTS N ASTHMA N CATARACTS N ERECTILE DYSFUNCTION N VARICOSITIES N GI PROBLEMS N Low Testosterone N INFERTILITY N AIDS/HIV N CHEMOTHERAPY / RADIATION N LIVER DISEASE N MALE HYPOGONADISM N HYPERTENSION Y Deficiency Y TOURETTE'S N ANXIETY DISORDER N BLOOD TRANSFUSION N ANEMIA/BLOOD DISORDER N CHRONIC EAR INFECTIONS N BRONCHITIS N TUBERCULOSIS N GLAUCOMA N FOOT PROBLEM N DIVERTICULITIS N CHICKENPOX N SLEEP APNEA N INFECTIOUS DISEASE N HEART ARRHYTHMIA N PROSTATE N INSOMNIA N HIGH CHOLESTEROL / HYPERLIPIDEMIA Y HYPERTHYROIDISM N EYE PROBLEMS N EDEMA N CHRONIC PAIN SYNDROME N HYPOTHYROIDISM N CAROTID BLOCKAGE N CONSTIPATION N BACK / NECK PROBLEMS Y HAVE YOU BEEN HOSPITALIZED OR SEEN IN [facility] IN THE PAST YEAR ? N ATHEROSCLEROSIS N BREAST PROBLEMS N DIALYSIS N ECZEMA N OSTEOPOROSIS N ARTHRITIS N APPENDICITIS N DIABETES, TYPE N BAD TEETH N ENT N HEARTBURN / REFLUX N AUTISM SPECTRUM DISORDER (ASD) N HEPATITIS / LIVER DISEASE N GOUT N SLEEP DISORDER N ALZHEIMER'S DISEASE N Brain Problems N HERPES N DEMENTIA N HEADACHES/MIGRAINES N SEIZURES/EPILEPSY N VASCULAR DISEASE Y PACEMAKER N Blood Disorder N DIZZINESS N HEART DISEASE/HEART PROBLEMS N KIDNEY DISEASE N MULTIPLE SCLEROSIS N CARDIAC ARRHYTHMIA N CANCER: SPECIFY N ATRIAL FIBRILLATION N Gall Stones N PULMONARY EMBOLISM N AUTOIMMUNE DISEASE N Immunizations Vaccine Type Date Status Note Provider Nam e and Address Organization Details Recorded Time COVID-19, mRNA, LNP-S, PF, 100 mcg/0.5mL dose or 50 mcg/0.25mL dose 04/12/2020 completed Not Available [facility] 08:40:59 COVID-19, mRNA, LNP-S, PF, 100 mcg/0.5mL dose or 50 mcg/0.25mL dose 03/15/2020 completed Not Available [facility] 08:40:59 Influenza, high-dose, trivalent, PF 03/12/2018 completed Not Available [facility] 2022 08:40:59 Past Encounters Encounter ID Performer Location Encounter Start Date Encounter Closed Date Diagnosis/Indication Diagnosis SNOMED-CT Code Diagnosis ICD10 Code Diagnosis Note [id number] [facility] [place] [address] 09/07/2020 00:00:00 09/07/2020 21:02:29 [id number] [facility] [address] 03/01/2021 00:00:00 03/05/2021 16:48:50 [id number] [facility] [place] [address] 09/22/2021 00:00:00 10/08/2021 15:43:41 [id number] [facility] [place] [address] [place] [address] 03/28/2022 00:00:00 03/28/2022 22:46:49 [id number] Aramis Dorsey MD [facility] [address] [facility] [address] , [place] [address] 09/19/2022 10:31:56 09/19/2022 11:10:31 Benign essential hypertension 6112705 I10 Neck pain 01416781 M54.2 Coronary atherosclerosis 674499696 I25.10 Dyslipidemia 935795099 E 78.5 Health Concerns Section Related Observation LastModified by Organization Detai ls LastModified Time None Recorded Concern Status LastModified by Organization Details LastModified Time None Recorded Advance Directives Directive N: papers given Payers Encounter Date Sequence Insurance Name Policy Number Policy Joyner Covered Member ID Joyner Member ID Guarantor Name 09/19/2022 1 [place] Jose Cruz Miller [id number] Jose Cruz Radha Paul 09/19/2022 2 [employer] Jose Cruz Goinsard [id number] Jose Cruz Radha Miller Notes Date Note Type Note Provider Name and Address Organization Details Recorded Time 09/19/2022 text/html He has had some neck painHypertension no headache no dizzinessCAD no chest painDyslipidemia tries to watch dietContinues to smoke Aramis Dorsey MD [address] [facility] [address], [place], [address], [facility] 10/01/2022 21:55:39
== END 2024-04-25 09:46 | disposition home or self-care (01) ==
PROVIDERS: PCP Internal Medicine
DX: K40.90 Unilateral inguinal hernia, without obstruction or gangrene, not specified as recurrent (principal); K76.0 Fatty (change of) liver, not elsewhere classified
CPT/HCPCS: 74177; Q9967